=== PATIENT | female | born 1960 | race Caucasian/White ===

== ENCOUNTER 2017-01-01 08:47 | Observation (INO) | payer OTHER ==
[2017-01-01] MEDS ORDERED: SODIUM CHLORIDE 0.9% 1000 ML INFUS.BAG IV ONE (09:15)
[2017-01-01] MEDS ORDERED: LORAZEPAM CARPU-JECT 2 MG/ML DISP.SYRIN IVPUSH ONE (09:16)
--- NOTE | 2017-01-01 09:21 | PDOC ---
History of Present Illness - General History Source: Old Records Exam Limitations: No Limitations - History of Present Illness Initial Comments: 01/01/17 09:34 The patient is a 56-year-old woman, with a significant past medical history of restless leg syndrome and anxiety, who was sent to the emergency department by her PCP today for chronic abdominal pain. Pt attributes her pain to her hip surgery she had many years ago. The patient was seen in [facility] 2 weeks ago for similar pain. She describes the pain as a burning sensation that radiates down her legs bilaterally. She states that her pain has progressively worsened over the past month. Pt reports nausea, last episode of vomiting was yesterday. Last bowel movement was yesterday. She initially refused to speak to the doctor, requesting only Dr. Perez. The patient reports chills and dysuria. The patient denies any fever, cough, diarrhea, or constipation. PCP: Dr. De Leon <Sherry Mitchell - Last Filed: 01/01/17 09:34> <Ruchi Duque - Last Filed: 01/01/17 12:42> - General Chief Complaint: Pain Stated Complaint: PAIN Time Seen by Provider: 01/01/17 09:11 Past History <Sherry Mitchell - Last Filed: 01/01/17 09:34> - Past Medical History Psychiatric Problems: Yes (ANXIETY) - Surgical History Orthopedic Surgery: Yes (Left hip replacement surgery) - Psycho/Social/Smoking Cessation Hx Anxiety: Yes Suicidal Ideation: No Smoking History: Never smoked Have you smoked in the past 12 months: No Hx Alcohol Use: No Drug/Substance Use Hx: No Substance Use Type: None <Ruchi Duque - Last Filed: 01/01/17 12:42> - Past Medical History Allergies/Adverse Reactions: Allergies Allergy/AdvReac Type Severity Reaction Status Date / Time No Known Allergies Allergy Verified 01/01/17 08:52 Home Medications: Ambulatory Orders Hydrocodone/Acetaminophen [Vicodin 5-300 mg Tablet] 1 each PO PRN 01/01/17 Review of Systems - Review of Systems Able to Perform ROS?: Yes Comments:: 01/01/17 09:35 GENERAL/CONSTITUTIONAL: No fever. No weakness. +chills HEAD, EYES, EARS, NOSE AND THROAT: No change in vision. No ear pain or discharge. No sore throat. CARDIOVASCULAR: No chest pain or shortness of breath. RESPIRATORY: No cough, wheezing, or hemoptysis. SKIN: No rash GASTROINTESTINAL: No diarrhea or constipation.+nausea, vomiting, chronic abdominal pain GENITOURINARY: No frequency. +dysuria MUSCULOSKELETAL: No joint swelling or pain. No neck or back pain. +bilateral leg pain NEUROLOGIC: No headache, vertigo, loss of consciousness, or change in strength/ sensation. ENDOCRINE: No increased thirst. No abnormal weight change. HEMATOLOGIC/LYMPHATIC: No anemia, easy bleeding, or history of blood clots. ALLERGIC/IMMUNOLOGIC: No hives or skin allergy. <StephenSherry - Last Filed: 01/01/17 09:34> *Physical Exam - Vital Signs Last Vital Signs Temp Pulse Resp BP Pulse Ox 98.2 F 107 H 18 145/86 99 01/01/17 08:48 01/01/17 08:48 01/01/17 08:48 01/01/17 08:48 01/01/17 08:48 - Physical Exam Comments: 01/01/17 09:35 GENERAL: Awake, alert. +constantly moving and not able to sit still. HEAD: No signs of trauma ENT: Auricles normal inspection, hearing grossly normal, nares patent, oropharynx clear EYES: PERRLA, EOMI, sclera anicteric, conjunctiva clear without exudates. Moist mucosa. NECK: Normal ROM, supple, no lymphadenopathy, JVD, or masses LUNGS: Breath sounds equal, clear to auscultation bilaterally. No wheezes, and no crackles HEART: Regular rate and rhythm, normal S1 and S2, no murmurs, rubs or gallops ABDOMEN: Soft, normoactive bowel sounds. No guarding, no rebound. No masses. + tender in bilateral lower quadrant EXTREMITIES: Normal range of motion, no edema. No clubbing or cyanosis. No cords, erythema, or tenderness NEUROLOGICAL: +Oriented, speech is rapid pressured. SKIN: Warm, Dry, normal turgor, no rashes or lesions noted <StephenSherry - Last Filed: 01/01/17 09:34> - Vital Signs Last Vital Signs Temp Pulse Resp BP Pulse Ox 98.2 F 107 H 18 145/86 99 01/01/17 08:48 01/01/17 08:48 01/01/17 08:48 01/01/17 08:48 01/01/17 08:48 <Ruchi Duque - Last Filed: 01/01/17 12:42> ED Treatment Course - LABORATORY CBC & Chemistry Diagram: 01/01/17 09:44 01/01/17 09:44 <Ruchi Duque - Last Filed: 01/01/17 12:42> Medical Decision Making - Medical Decision Making 01/01/17 09:21 56 yo F with ho chronic abdominal pain for over 1 year here today with worsening pain. pt states she is having pulling sensation in whole abdomen radiating to her whole body. she has been seen for similar in the past. states this pain all started following her hip surgery many years ago. is concerned she is having adhesions in her abdomen. denies constipation, last bm was yesterday, reported some nausea and vomiting last episode yesterday. does report urinary burning but no urgeny, dysuria. pt initially refusing to speak to me, requesting to see the other doctor. demanding if ct is negative that she could be observed. pt denies current psychiatric medication, used to be on nortriptylline, and buspar but states they weren't working. she has rapid, pressured speech, denies drug use. on exam awake alert, hyperactive, lungs clear, heart RRR no mr/.g. abd soft bilat lower quad ttp, no rebound no guarding. speech hyperactive, pressured. differential: anxiety, chronic pain, uti diveritic, obstruction less likely. plan ct a/p, will d/w dr Lovett. anxiolytics . ivf. 01/01/17 09:59 d/w dr Lovett, states pt is new to him. recommending admission. also discussed need or psychiatry due to increased anxiety. 01/01/17 12:41 pt requesting case management as states she can not take care of herself at home. pending ct results. per dr. lovett will admit pt for further workup and management. <Ruchi Duque - Last Filed: 01/01/17 12:42> *DC/Admit/Observation/Transfer - Attestations Scribe Attestion: 01/01/17 09:37 Documentation prepared by Sherry Mitchell, acting as medical sonographer for Ruchi Duque MD. <Sherry Mitchell - Last Filed: 01/01/17 09:34> - Discharge Dispostion Admit: Yes <Ruchi Duque - Last Filed: 01/01/17 12:42> Diagnosis at time of Disposition: Chronic pain, Anxiety - Discharge Dispostion Condition at time of disposition: Stable - Referrals Referrals: Billy Colby MD [Primary Care Provider] -
[2017-01-01] MEDS ORDERED: LORazepam 2 MG/ML SDV VIAL ONE (09:28)
[2017-01-01 10:41] LABS: BASOPHIL 0.3 % (0-2.0); MCH 30.2 pg (25.7-33.7); MCHC 33.5 g/dl (32.0-36.0); MEAN CELL VOLUME 90.2 fl (80-96); MEAN PLT VOLUME 9.1 fl (7.5-11.1); NEUTROPHILS 50.3 % (42.8-82.8); PLATELET COUNT 158 K/MM3 (134-434); RDW 14.3 % (11.6-15.6); WHITE BLOOD COUNT 4.7 K/mm3 (4.0-10.0)
[2017-01-01 10:56] LABS: URINE APPEARANCE CLEAR; URINE BILIRUBIN NEGATIVE (NEGATIVE); URINE BLOOD NEGATIVE (NEGATIVE); URINE COLOR COLORLESS; URINE GLUCOSE (UA) NEGATIVE (NEGATIVE); URINE KETONE NEGATIVE (NEGATIVE); URINE LEUK ESTERASE NEGATIVE (NEGATIVE); URINE NITRITE NEGATIVE (NEGATIVE); URINE PROTEIN NEGATIVE (NEGATIVE); URINE UROBILINOGEN NEGATIVE E.U./dl (0.2-1.0)
[2017-01-01 11:09] LABS: ALBUMIN 3.8 g/dl (3.4-5.0); ALK PHOS 81 U/L (45-117); ANION GAP 10 (8-16); BILIRUBIN,TOTAL 0.7 mg/dL (0.2-1.0); CALCIUM 9.1 mg/dL (8.5-10.1); CO2 28 mmol/L (21-32); CREATININE 0.7 mg/dL (0.55-1.02); GLUCOSE,RANDOM 83 mg/dL (74-106); SGPT/ALT 27 U/L (12-78); TOT PROT 6.7 g/dl (6.4-8.2)
[2017-01-01 11:11] LABS: SGOT/AST 22 U/L (15-37)
--- NOTE | 2017-01-01 15:45 | PN ---
Mental Health Exam - Mental Status Exam Alert and Oriented to: Time, Place, Person Cognitive Function: Grossly Intact Patient Appearance: Unkempt, Disheveled Mood: Elated, Anxious, Expansive, Hopeful Affect: Inappropriate, Labile Patient Behavior: Inappropriate (opening gown constantly ), Restless, Distractible, Impulsive, Talkative Speech Pattern: Rambling, Excessive, Pressured, Perseverating, Tangential Voice Loudness: Moderately Loud Thought Process: Loose Associations, Tangential, Disorganized Thought Disorder: Delusional (re pain...somatic complaints...) Hallucinations: Denies Suicidal Ideation: Denies, No Plan Homicidal Ideation: Denies, No Plan
--- NOTE | 2017-01-01 15:56 | PN ---
Progress Note, Physician Chief Complaint: Patient is middle a female lives with her sister in law Josette at 0r cell [phone]. Called today by ER attending for bizzarre behaviour , apparently as driving today to [facility] in [facility] ED, then called ambulance to take her to hospital instead with somatic pain complaints. 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 Was Followed at [facility]re[facility]. Has a therapist named isaiah also there. Decreased appetite, poor sleep. Recommend seroquel 50 mg at night. May use serouel 25mg po prn for episode of extreme anxiety with vistaril 25mgs if needed. Spoke with edi manager from Er who is very helpful re discharge planning, setting up VNS services with aide in home to assist with adkls, ambulation, improved mental health. Her sister in law apparently is moving out.
[2017-01-01] MEDS ORDERED: ONDANSETRON 4 MG/2 ML VIAL IVPB PRN (17:39)
[2017-01-01 17:40] VITALS: BMI 26.3
[2017-01-01] MEDS ORDERED: QUEtiapine FUMARATE 25 MG TABLET (FP) PO PRN (17:41)
[2017-01-01] MEDS ORDERED: hydrOXYzine PAMOATE 25 MG CAPSULE (FP) PO PRN (17:42)
[2017-01-01] MEDS: ACETAMINOPHEN 325 MG TABLET (FP) PO PRN (19:18)
[2017-01-01] MEDS ORDERED: POLYETHYLENE GLYCOL 3350 119 GM BTL PO ONE (20:30)
[2017-01-01] MEDS ORDERED: QUEtiapine FUMARATE 25 MG TABLET (FP) ONE (21:02)
[2017-01-01] MEDS: QUEtiapine FUMARATE 50 MG TABLET PO SCH (21:26)
[2017-01-02] MEDS: QUEtiapine FUMARATE 50 MG TABLET PO SCH ×3 (00:02→23:20)
[2017-01-02] MEDS: ACETAMINOPHEN 325 MG TABLET (FP) PO PRN (08:20)
[2017-01-02] MEDS ORDERED: oxyCODONE HCL 5 MG TABLET PO PRN (09:28)
[2017-01-02] MEDS: LORazepam 1 MG TABLET PO PRN ×2 (09:50→23:22)
[2017-01-02] MEDS ORDERED: POLYETHYLENE GLYCOL 3350 119 GM BTL PO SCH (10:00)
--- NOTE | 2017-01-02 10:07 | PN ---
Progress Note (short form) - Note Progress Note: Nursing staff called with patient exhibiting agitated, uncontrolled behavior - refusing Seroquel this morning. Spoke to psychiatry, Mr. Cid -patient will need acute psych placement for Uncontrolled Bipolar Disorder with Acute Manic Phase. Will give Ativan for now.
--- NOTE | 2017-01-02 11:09 | PN ---
Progress Note (short form) - Note Progress Note: Pt seen and examined. In summary she is a 56 year old Female s/p Left THR by "Dr. Guo" at [facility] in 2012. Was good for 2 years. Has been hurting since 2014. She c/o pain in the left hip, thigh, lateral aspect left thigh, post knee on both sides. She has c/o pain in many, many different body areas. PE Pt is able to ambulate. I witnessed her putting her full weight on her left leg with no apparent pain. She has tight hamstrimgs B/L, and mild B/L knee flexion contractures. She is tender to palpation over the greater trochanteric bursas B/L, and over the ITBs Xrays Pt refusing Imp 56 yo F with B/L hip bursitis, would be helped by cortisone injections B/L tight hamstrings, knee flexion contractures, recommend P.T. for stretching B/L hip and ITB pain, rec P.T. Rec f/u with the surgeon who did the THR The pt became extremely combative, screaming, accusing, etc. She seems psychologically unstable. I discussed this with Dr Cordon. I would rather not be involved with the treatment of this pt. All of her orthopedic problems can be treated as an out pt. She should f/u with her orthopedist in [facility]
--- NOTE | 2017-01-02 11:17 | HP ---
Admitting History and Physical - Primary Care Physician PCP: Kevin Mckeon - Admission Chief Complaint: I've been hurting for years History of Present Illness: Ms Nickerson is a 56 year old female who comes in complaining of years of pain everywhere. She says that she had surgery in the past and she believes that her surgeon made a mistake. After that she has chronic pain that radiates "everywhere". She says she has abdominal pain. She says she has pain in both her legs. She says she has pain in all her joints. She continuously complains of pain. I am unable to obtain further history as her speech is very pressured and she goes back and forth with her pain complaints. She asks if she can be tested for RSD. She asks if she can be put on a morphine drip. When asking about other symptoms she gets visibly upset and says she is here for the pain that has been present for three years. History Source: Patient Limitations to Obtaining History: Clinical Condition - Past Medical History ...LMP Comment: over 5 yrs ago ...: No Psych: Yes: Bipolar - Past Surgical History Past Surgical History: Yes: Joint Replacement - Smoking History Smoking history: Never smoked Have you smoked in the past 12 months: No - Alcohol/Substance Use Hx Alcohol Use: No History of Substance Use: reports: None - Social History Usual Living Arrangement: Yes: Other (with stepsister) ADL: Family Assistance History of Recent Travel: No Home Medications - Allergies Allergies/Adverse Reactions: Allergies Allergy/AdvReac Type Severity Reaction Status Date / Time No Known Allergies Allergy Verified 01/01/17 08:52 - Home Medications Home Medications: Ambulatory Orders Hydrocodone/Acetaminophen [Vicodin 5-300 mg Tablet] 1 each PO PRN 01/01/17 Family Disease History - Family Disease History Other Family History: says all her family is from cancer Review of Systems Unable to obtain ROS, reason: hyperfocused on pain Physical Examination Vital Signs: Vital Signs Temperature 98.3 F 01/02/17 05:00 Pulse Rate 81 01/02/17 05:00 Respiratory Rate 20 01/02/17 05:00 Blood Pressure 133/83 01/02/17 05:00 O2 Sat by Pulse Oximetry (%) 100 01/01/17 14:11 Constitutional: Yes: Well Nourished, Anxious Eyes: Yes: Conjunctiva Clear Cardiovascular: Yes: Regular Rate and Rhythm. No: Gallop, Murmur, Rub Respiratory: Yes: Regular, CTA Bilaterally. No: Rales, Rhonchi, Wheezes Gastrointestinal: Yes: Normal Bowel Sounds, Soft. No: Distention, Tenderness Extremities: Yes: WNL Edema: No Psychiatric: Yes: Agitated. No: Suicidal Ideation Labs: Laboratory Results - last 24 hr 01/01/17 10:45 Ur Specific Elizabeth 1.015 Imaging - Results Cat Scan: Report Reviewed, Image Reviewed Assessment/Plan 1. Suspected decompensated bipolar disorder -patient says she has been weaned off of her psychiatric medications -was at her psychiatrist, but instead came in to the ED for evaluation of her pain -psychiatry saw her and recommended seroquel, which she is refusing -psychiatry to evaluate again, may need inpatient psychiatric treatment -does not have suicidal ideations -psychiatry to assist in medications 2. Chronic pain -per notes has been evaluated as an outpatient significantly -will not use narcotics in this patient -will continue tylenol
[2017-01-02] MEDS ORDERED: LORAZEPAM CARPU-JECT 2 MG/ML DISP.SYRIN IVPUSH ONE (11:30)
[2017-01-02] MEDS ORDERED: LORazepam 2 MG/ML SDV VIAL IVPUSH ONE (11:45)
--- NOTE | 2017-01-02 13:59 | CONSULT ---
Consult Consult Specialty:: PM&R - History of Present Illness Chief Complaint: pain all over, tightness/ stiffness all over History of Present Illness: This is a 56 year old woman with a medical history of bipolar disorder, RLS, L hip replacement, who presented to the ED complaining of diffuse abdominal/ pelvis/ BLE pain as well as stiffness BUE and tightness BLE. She notes burning B thighs. She reports having had multiple imaging studies LS spine/ B hips as well as EMG BLE. She perseverates on hip surgery being root of all problems, which makes it difficult to fully obtain information. Physiatry is being consulted for further recommendations. - History Source History Provided By: Patient, Medical Record - Past Medical History ...LMP Comment: over 5 yrs ago ...: No Psych: Yes: Bipolar - Past Surgical History Past Surgical History: Yes: Joint Replacement - Alcohol/Substance Use Hx Alcohol Use: No History of Substance Use: reports: None - Smoking History Smoking history: Never smoked Have you smoked in the past 12 months: No - Social History Usual Living Arrangement: Other (lives with sister in apartment with 2 flights to enter) ADL: Family Assistance History of Recent Travel: No Home Medications - Allergies Allergies/Adverse Reactions: Allergies Allergy/AdvReac Type Severity Reaction Status Date / Time No Known Allergies Allergy Verified 01/01/17 08:52 - Home Medications Home Medications: Ambulatory Orders Hydrocodone/Acetaminophen [Vicodin 5-300 mg Tablet] 1 each PO PRN 01/01/17 Family Disease History - Family Disease History Other Family History: says all her family is from cancer Review of Systems Findings/Remarks: notes chills, CP, SOB (from pulling in her neck), abdominal pain, diffuse weakness due to pulling/ stiffness/ tightness, pain in B groin/ abdomen/ pelvis into B thigh down into B 1st toes with burning Physical Exam Vital Signs: Vital Signs Temperature 98.1 F 01/02/17 13:30 Pulse Rate 95 H 01/02/17 13:30 Respiratory Rate 20 01/02/17 13:30 Blood Pressure 105/67 01/02/17 13:30 O2 Sat by Pulse Oximetry (%) 100 01/01/17 14:11 Musculoskeletal: Yes: Other (General: verbose F seen sitting lying and standing, anxious but calm N/M: full BLE ROM with mild pulling in R hip IR/ ER with hip fully flexed, no pain with LLE ROM, 5/5 BLE; Pinprick decreased L thigh, R medial knee and R lateral ankle Extremities: no BLE pitting edema, +B calf tenderness with negative Lisha's sign and no erythema BLE, B pes planus) Assessment/Plan Impression: 1) Deficits mobility/ ADLs 2) Diffuse abdomen/ pelvic and BLE pain 3) hx L THR 4) hx bipolar Recommendations: 1) PT for stretching strengthening ROM bed mobility transfers balance ambulation , stairs if able 2) Falls, safety precautions 3) Heat/ ice back/ BLE prn 4) DVT ppx: encourage ambulation 5) Skin protection: float heels, frequent turning 6) Monitor bowel movements 7) Pt adamant she has leg length discrepancy, would need BLE Xray to accurately determine (unlikely she would accept results of bedside measuring tape PSIS to medial malleolus) 8) Pt also adamant she needs orthotics- she does have pes planus but has tried orthotics in past without improvement. 9) F/u outpt EMG/ MRI 10) Discharge planning: depending on her progress in therapy, she may be able to return home with services (from functional stand-point) versus inpatient rehabilitation. Thank you for this referral.
[2017-01-02] MEDS ORDERED: LORAZEPAM CARPU-JECT 2 MG/ML DISP.SYRIN IVPUSH PRN (14:46)
[2017-01-02] MEDS ORDERED: QUEtiapine FUMARATE 25 MG TABLET (FP) ONE (19:39)
[2017-01-03] MEDS: LORazepam 1 MG TABLET PO PRN ×2 (06:16→10:56)
[2017-01-03 13:20] VITALS: BP 127/79; PULSE 104; TEMP 97.7
--- NOTE | 2017-01-03 14:12 | PN ---
Progress Note (short form) - Note Progress Note: Psych follow up: Patient lying comfortably in bed chatting aeay> in no apparant distress. She is casandra hallucinating or deel;usional at this time. She [id number] any bsuicidal ideas or Plans. PLAN: d/C when medically stable. follow up with her pvt5 PSych at the clinic in [facility].
--- NOTE | 2017-01-03 14:13 | DS ---
Physical Examination Vital Signs: Vital Signs Temperature 97.7 F 01/03/17 13:17 Pulse Rate 104 H 01/03/17 13:17 Respiratory Rate 20 01/03/17 13:17 Blood Pressure 127/79 01/03/17 13:17 O2 Sat by Pulse Oximetry (%) 100 01/01/17 14:11 Constitutional: Yes: Well Nourished, No Distress, Calm Cardiovascular: Yes: Regular Rate and Rhythm. No: Gallop, Murmur, Rub Respiratory: Yes: Regular, CTA Bilaterally. No: Rales, Rhonchi, Wheezes Gastrointestinal: Yes: Normal Bowel Sounds, Soft. 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 Suspected decompensated bipolar disorder 2. Chronic pain Ms Nickerson is a 56 year old female who has chronic pain and non-compliance with her psychiatric regimen who was admitted under observation. She was seen by orthopedic surgery and recommended outpatient follow up with her outpatient orthopedic surgery. She was seen by psychiatry and told to follow up with her psychiatrist. Patient was often hostile during hospital stay and became very aggressive. She is safe for discharge home. 40 minutes spent in preparation of this discharge Condition: Stable - Instructions Diet, Activity, Other Instructions: resume previous diet and activity Referrals: Billy Colby MD [Primary Care Provider] - Disposition: VNS/HOME HEALTH CARE - Home Medications Comprehensive Discharge Medication List: Ambulatory Orders Quetiapine Fumarate [Seroquel -] 50 mg PO HS #30 tablet 01/03/17
== END 2017-01-03 18:30 | disposition home health service (06) ==
LOC: JER 08:47 → JERBED 12:43 → J7W 15:02
PROVIDERS: ADMIT Specialist; ATTEND Specialist
PROC: 3E033GC Introduction of Other Therapeutic Substance into Peripheral Vein, Percutaneous Approach (ICD-10-PCS; principal; 2017-01-01)
PROC: 3E0337Z Introduction of Electrolytic and Water Balance Substance into Peripheral Vein, Percutaneous Approach (ICD-10-PCS; 2017-01-01)
DX: R10.9 Unspecified abdominal pain (principal); G25.81 Restless legs syndrome; F41.9 Anxiety disorder, unspecified; G89.29 Other chronic pain; F06.2 Psychotic disorder with delusions due to known physiological condition; M71.9 Bursopathy, unspecified; F31.89 Other bipolar disorder
CPT/HCPCS: 36415; 74177-TC; 80053; 81003; 83690; 85025; 97116-GP; 97161; 99284-25; G0378; Q9967

== ENCOUNTER 2017-02-21 14:13 | Emergency (ER) | payer OTHER ==
[2017-02-21 14:27] VITALS: BMI 25.9
--- NOTE | 2017-02-21 15:26 | PDOC ---
History of Present Illness <Khanh Lyon - Last Filed: 02/21/17 16:51> - General History Source: Patient - History of Present Illness Initial Comments: 02/21/17 16:06 56 year old female with a PMHx of HLD, anxiety who presents to the ED with burning and inflammation in her body since 2014. Patient also reports she cannot sit still, it feels like her shoulders are being pulled forward and her vagina is falling out. The patient went to urgent care today and saw Dr. Alexander Irvin for the first time. She came to the ED after being seen and requested an US on her thyroid. She reports symptoms began after a hip replacement 2 years ago. She states she has seen multiple doctors and no one believes her or wants to see her again. She does not have a PCP. <Lulu Paul - Last Filed: 02/21/17 16:57> - General Chief Complaint: Pain, Acute Stated Complaint: PAIN Time Seen by Provider: 02/21/17 14:34 Past History - Past Medical History Anemia: No Asthma: No Cancer: No Cardiac Disorders: No CVA: No COPD: No CHF: No Dementia: No Diabetes: No GI Disorders: No Disorders: No HTN: No Hypercholesterolemia: Yes Liver Disease: No Psychiatric Problems: Yes (ANXIETY) Seizures: No Thyroid Disease: No - Surgical History Abdominal Surgery: No Appendectomy: No Cardiac Surgery: No Cholecystectomy: No Lung Surgery: No Neurologic Surgery: No Orthopedic Surgery: Yes (Left hip replacement surgery) - Psycho/Social/Smoking Cessation Hx Anxiety: Yes Suicidal Ideation: No Smoking History: Former smoker Have you smoked in the past 12 months: No Information on smoking cessation initiated: No Hx Alcohol Use: No Drug/Substance Use Hx: No Substance Use Type: None Hx Substance Use Treatment: No <Khanh Lyon - Last Filed: 02/21/17 16:51> <Lulu Paul - Last Filed: 02/21/17 16:57> - Past Medical History Allergies/Adverse Reactions: Allergies Allergy/AdvReac Type Severity Reaction Status Date / Time No Known Allergies Allergy Verified 02/21/17 14:22 Home Medications: Ambulatory Orders Quetiapine Fumarate [Seroquel -] 50 mg PO HS #30 tablet 01/03/17 Review of Systems - Review of Systems Comments:: 02/21/17 16:06 GENERAL/CONSTITUTIONAL: No fever or chills. No weakness. HEAD, EYES, EARS, NOSE AND THROAT: No change in vision. No ear pain or discharge. No sore throat. CARDIOVASCULAR: No chest pain or shortness of breath. RESPIRATORY: No cough, wheezing, or hemoptysis. GASTROINTESTINAL: (+) burning and inflammation. No nausea, vomiting, diarrhea or constipation. GENITOURINARY: No dysuria, frequency, or change in urination. MUSCULOSKELETAL: No joint or muscle swelling or pain. No neck or back pain. SKIN: No rash NEUROLOGIC: (+) change in sensation - feels like her shoulders are being pulled and her vagina is falling out. No headache, vertigo, loss of consciousness, or change in strength. ENDOCRINE: No increased thirst. No abnormal weight change. HEMATOLOGIC/LYMPHATIC: No anemia, easy bleeding, or history of blood clots. ALLERGIC/IMMUNOLOGIC: No hives or skin allergy. <Lulu Paul - Last Filed: 02/21/17 16:57> *Physical Exam - Vital Signs Last Vital Signs Temp Pulse Resp BP Pulse Ox 98.1 F 84 19 122/73 99 02/21/17 14:22 02/21/17 14:22 02/21/17 14:22 02/21/17 14:22 02/21/17 14:22 <Khanh Lyon - Last Filed: 02/21/17 16:51> - Vital Signs Last Vital Signs Temp Pulse Resp BP Pulse Ox 98.1 F 84 19 122/73 99 02/21/17 14:22 02/21/17 14:22 02/21/17 14:22 02/21/17 14:22 02/21/17 14:22 <Lulu Paul - Last Filed: 02/21/17 16:57> ED Treatment Course - RADIOLOGY Radiograph Interpretation: 02/21/17 16:57 Sahar acted as a supervisor paper products during the exam. Told Dr. Lyon she was recording the exam with her phone. When Dr. Lyon told her it was not legal to record she said her phone was off. She insists that she is refusing to treat her. Dr. Lyon said that was not the case, but needs a sober responsible adult. Lives with sister, but will not be involved. Patient reported her gait was abnormal and stood up and held one hip higher. She reports that her shoulders were being pulled over and actively slumped over to act like they were being pulled. She states that her vagina is crooked and butt is not right, but the areas were not examined. Patient complained of abdominal stiffness and hard masses but on examination, the abdomen was soft. The masses she was referring to was fat. GENERAL: Awake, alert, and fully oriented, Histrionic. HEAD: No signs of trauma EYES: PERRLA, EOMI, sclera anicteric, conjunctiva clear ENT: Auricles normal inspection, hearing grossly normal, nares patent, oropharynx clear without exudates. Moist mucosa. Thyroid is without nodules or goiter. NECK: Normal ROM, supple, no lymphadenopathy, JVD, or masses LUNGS: Breath sounds equal, clear to auscultation bilaterally. No wheezes, and no crackles HEART: Regular rate and rhythm, normal S1 and S2, no murmurs, rubs or gallops ABDOMEN: Soft, nontender, normoactive bowel sounds. No guarding, no rebound. No masses EXTREMITIES: Normal range of motion, no edema. No clubbing or cyanosis. No cords, erythema, or tenderness NEUROLOGICAL: Cranial nerves II through XII grossly intact. Normal speech. SKIN: Warm, Dry, normal turgor, no rashes or lesions noted. <Lulu Paul A - Last Filed: 02/21/17 16:57> Medical Decision Making - Medical Decision Making 02/21/17 16:06 Dr. Lyon told the patient that, because she drove to the ER, in order to receive medications for her anxiety and pain someone needs to be here who agrees to drive her home. She called Dr. Irvin and told him Dr. Lyon would not see her unless she had someone with her. Dr. Irvin called and spoke with Dr. Lyon. He agrees with Dr. Lyon's assessment and thinks that the patient should get her prescriptions filled and follow-up with Dr. Irvin as planned. <Lulu Paul - Last Filed: 02/21/17 16:57> *DC/Admit/Observation/Transfer - Discharge Dispostion Admit: No - Attestations Physician Attestion: 02/21/17 15:26 I, Dr. Khanh Lyon, attest that this document has been prepared under my direction and personally reviewed by me in its entirety. I further attest, that it accurately reflects all work, treatment, procedures and medical decision -making performed by me. <Khanh Lyon - Last Filed: 02/21/17 16:51> - Attestations Scribe Attestion: 02/21/17 16:06 Documentation prepared by Lulu Paul, acting as nuclear medical tech for Khanh Lyon DO. <Lulu Paul - Last Filed: 02/21/17 16:57> Diagnosis at time of Disposition: Chronic pain - Referrals Referrals: Alexander Irvin MD [Primary Care Provider] - - Patient Instructions Additional Instructions: Yanique- Get the medicines filled that Dr. Carr wrote for you this morning. Try them and see him as planned next week. Best- Dr. Khanh Lyon
[2017-02-21 17:19] VITALS: BP 127/74; PULSE 80; TEMP 98.6
--- NOTE | 2017-02-21 18:44 | PDOC ---
*Physical Exam - Vital Signs Last Vital Signs Temp Pulse Resp BP Pulse Ox 98.6 F 80 20 127/74 100 02/21/17 17:18 02/21/17 17:18 02/21/17 17:18 02/21/17 17:18 02/21/17 17:18 Medical Decision Making - Medical Decision Making 02/21/17 16:40 I initially had signed up for this patient and began my history of present illness discussing with her with her complaints were which were generalized burning decreased range of motion, and vaginal puling. Patient states has been to numerous doctors over the past 2 years and has been seen by myself with no acute findings. Patient has been told to take Neurontin which she states took for a few weeks but stopped since she had no improvement last year. Patient also states was seen by Alexander Irvin in a clinic where he prescribed her Xanax and told to follow-up with psychiatry. Patient states has been to multiple doctors psychiatrist and specialist with no acute findings and states does not know what else to do. Patient anxious and not keeping still walking throughout the ER with full range of motion of wrist, neck, and extremities. Patient ambulated in the ER and when she returned to the stretcher I questioned what was her biggest concern and what could be solved in the ER. Patient states she is not sure requesting something for anxiety and the pain. I then asked the patient whom she had seen in the past and quickly stated "I want a second opinion from a doctor since I have seen you in the past." I told the patient to give me a second and I will find a physician. I discussed the case with Dr. Lyon, an attending ER who assumed care of the patient. *DC/Admit/Observation/Transfer Diagnosis at time of Disposition: Chronic pain - Discharge Dispostion Disposition: HOME - Referrals Referrals: Alexander Irvin MD [Primary Care Provider] - - Patient Instructions Additional Instructions: Yanique- Get the medicines filled that Dr. Carr wrote for you this morning. Try them and see him as planned next week. Best- Dr. Khanh Lyon - Post Discharge Activity
== END 2017-02-21 17:17 | disposition home or self-care (01) ==
LOC: JER 14:13
DX: G89.29 Other chronic pain (principal); F41.9 Anxiety disorder, unspecified
CPT/HCPCS: 76536-TC; 99283-25

== ENCOUNTER 2018-01-14 10:52 | Observation (INO) | payer OTHER ==
[2018-01-14 11:04] VITALS: BMI 26.4
--- NOTE | 2018-01-14 12:52 | PDOC ---
History of Present Illness - General Chief Complaint: Psychiatric Stated Complaint: ANXIETY Time Seen by Provider: 01/14/18 12:50 - History of Present Illness Initial Comments: 01/14/18 17:25 The patient is a 57 year old female with a significant PMH of chronic pain, anxiety (on ativan BID), and hyperlipidemia who presents to the emergency department with Vicodin withdrawal symptoms beginning approximately yesterday. The patient states she had been taking Vicodin 10-325mg TID until 11/12 when her PM&R physician Dr. Mayes told her that he could not prescribe the vicodin for her any longer. She has been trying to self wean since October but states she feels like she is withdrawing today. Her last pill was yesterday. She reports shaking, generalized body aches, and an anxious feeling at presentation. The patient states she is interested in detox from vicodin. Pt states she has followed up with many pain management doctors in [place] but they have not helped her. States her pain is not well controlled on Tylenol or Motrin. She states the vicodin does not help for pain, but just is addictive. On ROS, she states her urine is darker than usual. The patient denies chest pain, shortness of breath, headache and dizziness. Denies fever, chills, nausea, vomit, diarrhea and constipation. Denies dysuria, frequency, urgency Allergies: NKA Past surgical history: Hip replacement. Social history: Vicodin use. No reported alcohol or drug use. PCP: None reported. PM&R: Dr. Mayes Past History - Past Medical History Allergies/Adverse Reactions: Allergies Allergy/AdvReac Type Severity Reaction Status Date / Time No Known Allergies Allergy Verified 01/14/18 11:00 Home Medications: Ambulatory Orders Cholecalciferol (Vitamin D3) [Vitamin D3 -] 1,000 unit PO DAILY 07/09/17 Cyanocobalamin [Vitamin B12 -] 1,000 mcg PO DAILY 07/09/17 Duloxetine HCl [Cymbalta] 30 mg PO DAILY 07/09/17 LORazepam [Ativan] 0.5 mg PO TID 07/09/17 Anemia: No Asthma: No Cancer: No Cardiac Disorders: No CVA: No COPD: No CHF: No DVT: No Dementia: No Diabetes: No GI Disorders: No Disorders: No HTN: No Hypercholesterolemia: Yes Liver Disease: No Psychiatric Problems: Yes (ANXIETY) Seizures: No Thyroid Disease: No - Surgical History Abdominal Surgery: No Appendectomy: No Cardiac Surgery: No Cholecystectomy: No Lung Surgery: No Neurologic Surgery: No Orthopedic Surgery: Yes (Left hip replacement surgery) - Suicide/Smoking/Psychosocial Hx Smoking History: Never smoked Have you smoked in the past 12 months: No Information on smoking cessation initiated: No Hx Alcohol Use: No Drug/Substance Use Hx: No Substance Use Type: None Hx Substance Use Treatment: No Review of Systems - Review of Systems Comments:: 01/14/18 17:30 GENERAL/CONSTITUTIONAL: No fever or chills. No weakness. HEAD, EYES, EARS, NOSE AND THROAT: No change in vision. No ear pain or discharge. No sore throat. GASTROINTESTINAL: No nausea, vomiting, diarrhea or constipation. GENITOURINARY: No dysuria, frequency, or change in urination. CARDIOVASCULAR: No chest pain or shortness of breath. RESPIRATORY: No cough, wheezing, or hemoptysis. MUSCULOSKELETAL: (+) Generalized body aches. No joint pain. No neck or back pain. SKIN: No rash NEUROLOGIC: (+) Shaking. (+) Anxious. No headache, vertigo, loss of consciousness, or change in strength/sensation. ENDOCRINE: No increased thirst. No abnormal weight change. HEMATOLOGIC/LYMPHATIC: No anemia, easy bleeding, or history of blood clots. ALLERGIC/IMMUNOLOGIC: No hives or skin allergy. *Physical Exam - Vital Signs Last Vital Signs Temp Pulse Resp BP Pulse Ox 98.0 F 99 H 18 107/78 100 01/14/18 11:01 01/14/18 11:01 01/14/18 11:01 01/14/18 11:01 01/14/18 11:01 - Physical Exam Comments: 01/14/18 17:30 GENERAL: Awake, alert, and fully oriented HEAD: No signs of trauma EYES: PERRLA, EOMI, sclera anicteric, conjunctiva clear ENT: Auricles normal inspection, hearing grossly normal, nares patent, oropharynx clear without exudates. Moist mucosa NECK: Normal ROM, supple, no lymphadenopathy, JVD, or masses LUNGS: Breath sounds equal, clear to auscultation bilaterally. No wheezes, and no crackles HEART: Regular rate and rhythm, normal S1 and S2, no murmurs, rubs or gallops ABDOMEN: Soft, nontender, normoactive bowel sounds. No guarding, no rebound. No masses EXTREMITIES: Normal range of motion, no edema. No clubbing or cyanosis. No cords , erythema, or tenderness BACK: No midline spinal tenderness in cervical/thoracic/lumbar region NEUROLOGICAL: Normal speech, cranial nerves intact, negative pronator drift, 5/ 5 strength in all 4 extremities, normal sensation to light touch in all 4 extremities, normal cerebellar exam, normal gait, normal reflexes and tone SKIN: Warm, Dry, normal turgor, no rashes or lesions noted. Medical Decision Making - Medical Decision Making 01/14/18 13:20 57yo F with hx fibromyalgia presents to the ED with chronic body pain and withdrawal sxs from vicodin. Pt initially requesting detox from vicodin but then reports she has no pain medications for her chronic pain and that vicodin, motrin do not help. Pt amenable to tylenol for now Spoke with patient, willing to go to detox. Contacted detox intake and spoke with LISA Agarwal, who requested we contact the patients PM&R physician for confirmation to send to detox for Vicodin. Spoke with Dr. Mayes (PM&R) who gave more history on the patients vicodin use and his plan for management. He states he agrees to send the patient to detox. Called LISA Agarwal at [facility] and informed him Dr. Mayes agrees with detox plan, LISA Agarwal requests written confirmation to ensure the patient should be in detox. Spoke with Dr. Ornelas office to request written confirmation, awaiting paper through fax. Received fax from Dr. Ornelas office, sent to LISA Agarwal. Received a call from LISA Agarwal stating the patient will not be accepted to detox as there is no pain management plan in place after detox is complete. Given lack of plan for chronic pain management, and continued pain despite tylenol, will admit pt to obs for pain consult. Case discussed with Dr. Hernandez, accepted to obs admission Case discussed in detail with admitting physician including history, physical exam and ancillary studies. Admitting physician has assumed care for the patient, will follow all pending diagnostics and will complete the evaluation and treatment. 01/14/18 17:31 *DC/Admit/Observation/Transfer Diagnosis at time of Disposition: Total body pain - Discharge Dispostion Condition at time of disposition: Stable Decision to Admit order: Yes - Referrals - Patient Instructions - Post Discharge Activity - Attestations Physician Attestion: 01/14/18 16:24 I, Dr. Lonny Mcmahon MD, attest that this document has been prepared under my direction and personally reviewed by me in its entirety. I further attest, that it accurately reflects all work, treatment, procedures and medical decision -making performed by me.
[2018-01-14] MEDS ORDERED: ACETAMINOPHEN 500 MG TABLET (FP) PO ONE (14:55)
[2018-01-14] MEDS ORDERED: ACETAMINOPHEN 325 MG TABLET (FP) ONE ×2 (15:37→21:48)
--- NOTE | 2018-01-14 16:41 | HP ---
Admitting History and Physical - Primary Care Physician PCP: Cristiana Hernandez - Admission History of Present Illness: 57 year old female with a significant PMH of chronic pain, anxiety (on ativan BID), and hyperlipidemia who presents to the emergency department with Vicodin withdrawal symptoms beginning approximately yesterday. The patient states she had been taking Vicodin 10-325mg TID until 11/12 when her PM&R physician Dr. Mayes told her that he could not prescribe the vicodin for her any longer. She has been trying to self wean since October but states she feels like she is withdrawing today. Her last pill was yesterday. She reports shaking, generalized body aches, and an anxious feeling at presentation. The patient states she is interested in detox from vicodin. Pt states she has followed up with many pain management doctors in [place] but they have not helped her. States her pain is not well controlled on Tylenol or Motrin. She states the vicodin does not help for pain, but just is addictive. On ROS, she states her urine is darker than usual. - Past Medical History Cardiovascular: Yes: Hyperlipdemia Psych: Yes: Anxiety, Bipolar - Past Surgical History Past Surgical History: Yes: Joint Replacement - Smoking History Smoking history: Never smoked Have you smoked in the past 12 months: No - Alcohol/Substance Use Hx Alcohol Use: No History of Substance Use: reports: None - Social History ADL: Family Assistance History of Recent Travel: No Home Medications - Allergies Allergies/Adverse Reactions: Allergies Allergy/AdvReac Type Severity Reaction Status Date / Time No Known Allergies Allergy Verified 01/14/18 11:00 - Home Medications Home Medications: Ambulatory Orders Cholecalciferol (Vitamin D3) [Vitamin D3 -] 1,000 unit PO DAILY 07/09/17 Cyanocobalamin [Vitamin B12 -] 1,000 mcg PO DAILY 07/09/17 Duloxetine HCl [Cymbalta] 30 mg PO DAILY 07/09/17 LORazepam [Ativan] 0.5 mg PO TID 07/09/17 Physical Examination Vital Signs: Vital Signs Temperature 98.0 F 01/14/18 11:01 Pulse Rate 99 H 01/14/18 11:01 Respiratory Rate 18 01/14/18 11:01 Blood Pressure 107/78 01/14/18 11:01 O2 Sat by Pulse Oximetry (%) 100 01/14/18 11:01 Constitutional: Yes: Anxious HENT: Yes: Atraumatic Neck: Yes: Supple Cardiovascular: Yes: Regular Rate and Rhythm Respiratory: Yes: CTA Bilaterally Gastrointestinal: Yes: Normal Bowel Sounds Extremities: Yes: WNL Neurological: Yes: Alert, Oriented Problem List - Problems (1) Anxiety Assessment/Plan: will consult psych Code(s): F41.9 - ANXIETY DISORDER, UNSPECIFIED (2) Chronic pain Assessment/Plan: was on vicodin withdrawl now?? will get detox involve Code(s): G89.29 - OTHER CHRONIC PAIN Assessment/Plan Laboratory Tests 01/14/18 01/14/18 01/14/18 17:05 18:10 18:10 WBC 7.3 D RBC 4.72 Hgb 14.2 Hct 42.7 MCV 90.4 MCH 30.0 MCHC 33.2 RDW 13.6 Plt Count 199 D MPV 8.9 Absolute Neuts (auto) 4.0 Neutrophils % 54.5 Lymphocytes % 37.1 Monocytes % 7.6 Eosinophils % 0.5 Basophils % 0.3 Nucleated RBC % 0 Sodium 139 Potassium 4.1 Chloride 103 Carbon Dioxide 29 Anion Gap 7 L BUN 16 Creatinine 0.8 Creat Clearance w eGFR > 60 Random Glucose 91 Calcium 9.0 Total Bilirubin 0.7 AST 11 L ALT 18 Alkaline Phosphatase 79 Total Protein 6.9 Albumin 4.0 Urine Color Yellow Urine Appearance Slcloudy Urine pH 5.0 D Ur Specific [place] 1.027 Urine Protein Negative Urine Glucose (UA) Negative Urine Ketones Negative Urine Blood Negative Urine Nitrite Negative Urine Bilirubin Negative Urine Urobilinogen Negative Ur Leukocyte Esterase 1+ H Urine WBC (Auto) 3 Urine RBC (Auto) 1 Ur Epithelial Cells Rare Urine Mucus Moderate Active Medications Generic Name Dose Route Start Last Admin Trade Name Freq PRN Reason Stop Dose Admin Acetaminophen 650 mg 01/14/18 16:44 Tylenol - PO Q6H PRN FEVER Oxycodone HCl 5 mg 01/14/18 16:45 Roxicodone - PO Q6H PRN PAIN
[2018-01-14] MEDS ORDERED: oxyCODONE HCL 5 MG TABLET PO PRN (16:45)
[2018-01-14 18:01] LABS: URINE APPEARANCE SLCLOUDY; URINE BILIRUBIN NEGATIVE (<2.0 mg/dL); URINE COLOR YELLOW; URINE GLUCOSE (UA) NEGATIVE (NEGATIVE); URINE KETONE NEGATIVE (NEGATIVE); URINE NITRITE NEGATIVE (NEGATIVE); URINE PROTEIN NEGATIVE (NEGATIVE); URINE UROBILINOGEN NEGATIVE mg/dL (0.2-1.0)
[2018-01-14 18:10] LABS: URINE LEUK ESTERASE 1+ (NEGATIVE)
[2018-01-14 18:11] LABS: EPI CELLS RARE /HPF (FEW); URINE MUCUS MODERATE
[2018-01-14 18:22] LABS: BASO % 0.3 % (0-2.0); EOS % 0.5 % (0-4.5); HEMATOCRIT 42.7 % (32.4-45.2); HEMOGLOBIN 14.2 GM/dL (10.7-15.3); LYMPH % 37.1 % (8-40); MCHC 33.2 g/dl (32.0-36.0); MEAN CELL VOLUME 90.4 fl (80-96); MEAN PLT VOLUME 8.9 fl (7.5-11.1); MONO % 7.6 % (3.8-10.2); NEUT % 54.5 % (42.8-82.8); PLATELET COUNT 199 K/MM3 (134-434); RBC 4.72 M/mm3 (3.60-5.2); RDW 13.6 % (11.6-15.6); WHITE BLOOD COUNT 7.3 K/mm3 (4.0-10.0)
[2018-01-14 18:53] LABS: ALK PHOS 79 U/L (45-117); ANION GAP 7 (8-16); BILIRUBIN,TOTAL 0.7 mg/dL (0.2-1.0); BLOOD UREA NITROGEN 16 mg/dL (7-18); CHLORIDE 103 mmol/L (98-107); CO2 29 mmol/L (21-32); CREATININE 0.8 mg/dL (0.55-1.02); GLUCOSE,RANDOM 91 mg/dL (74-106); POTASSIUM 4.1 mmol/L (3.5-5.1); SGOT/AST 11 U/L (15-37); SGPT/ALT 18 U/L (12-78); SODIUM 139 mmol/L (136-145); TOT PROT 6.9 g/dl (6.4-8.2)
[2018-01-14] MEDS ORDERED: LORazepam 0.5 MG TABLET ONE (21:48)
[2018-01-14] MEDS ORDERED: AMITRIPTYLINE HCL 25 MG TABLET (FP) ONE (21:48)
[2018-01-14] MEDS: ACETAMINOPHEN 325 MG TABLET (FP) PO PRN (21:54)
[2018-01-14] MEDS: LORazepam 0.5 MG TABLET PO SCH (21:55)
[2018-01-14] MEDS: AMITRIPTYLINE HCL 25 MG TABLET (FP) PO SCH (21:55)
[2018-01-15] MEDS: LORazepam 0.5 MG TABLET PO SCH ×3 (06:34→22:03)
[2018-01-15] MEDS ORDERED: PREGABALIN 25 MG CAPSULE PO STA (07:32)
--- NOTE | 2018-01-15 07:45 | CON.NEURO ---
Consult Consult Specialty:: Neurology Referred by:: Dr. Hernandez Reason for Consultation:: Chronic Pain - History of Present Illness Chief Complaint: Pain all over History of Present Illness: 57 year old woman who reports that 2 years following an uneventful left hip replacement she developed burning and tightness in her right inguinal area. The pain eventually spread initially to her buttocks and then around the region to her leg and abdomen. She says that her skin feels tight and burning and that the muscles feel like they are pulling. Sometimes, she says that the skin feels hot to touch, but it doesn't look different. She denies that it appears different colors. She says that she was never given a diagnosis and that nobody knows what's wrong with her and that she has tried a variety of treatments including Cymbalta ineffectively, gabapentin, ineffectively, Lyrica ( didn't give it enough chance though she doesn't recall why) and most recently vicodin, but she is now being titrated off of it and in some degree of withdrawal. The Vicodine never provided her with relief anyway. 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) Cardio/Vascular: Yes: Hyperlipdemia Psych: Yes: Anxiety, Bipolar Musculoskeletal: Yes: Osteoarthritis, Other (left hip replacement) - Past Surgical History Past Surgical History: Yes: Joint Replacement - Alcohol/Substance Use Hx Alcohol Use: No History of Substance Use: reports: None - Smoking History Smoking history: Never smoked Have you smoked in the past 12 months: No - Social History Usual Living Arrangement: Other (lives with sister in apartment with 2 flights to enter) ADL: Family Assistance History of Recent Travel: No Home Medications - Allergies Allergies/Adverse Reactions: Allergies Allergy/AdvReac Type Severity Reaction Status Date / Time No Known Allergies Allergy Verified 01/14/18 11:00 - Home Medications Home Medications: Ambulatory Orders Cholecalciferol (Vitamin D3) [Vitamin D3 -] 1,000 unit PO DAILY 07/09/17 Cyanocobalamin [Vitamin B12 -] 1,000 mcg PO DAILY 07/09/17 Duloxetine HCl [Cymbalta] 30 mg PO DAILY 07/09/17 LORazepam [Ativan] 0.5 mg PO TID 07/09/17 Physical Exam-Neuro Vital Signs: Vital Signs Temperature 98.0 F 01/15/18 06:00 Pulse Rate 80 01/15/18 06:00 Respiratory Rate 20 01/15/18 06:00 Blood Pressure 132/83 01/15/18 06:00 O2 Sat by Pulse Oximetry (%) 99 01/15/18 02:00 Constitutional: Yes: Well Nourished, Anxious, Other (skin feels normal in the area involved, equal temperature and normal color, with no difference in hair noticed.) Edema: No Labs: CBC, BMP 01/14/18 18:10 01/14/18 18:10 - Neuro Exam Level Of Consciousness: Yes: Alert, Oriented to Person, Oriented to Place, Oriented to Time Eyes: Yes: GODWIN Speech: WNL Cranial Nerves II-XII Intact: Yes DTR's: 2+ Left Bicep, 2+ Right Bicep, 2+ Left Tricep, 2+ Right Tricep, 2+ Left Brachioradialis, 2+ Right Brachioradialis Babinski: Absent Response to light touch: Normal Coordination: Normal: Finger to Nose, Heel to Moss Motor Strength: 5/5: Left Arm, Right Arm, Left Leg, Right Leg Problem List - Problems (1) Complex regional pain syndrome i of right lower limb Code(s): G90.521 - COMPLEX REGIONAL PAIN SYNDROME I OF RIGHT LOWER LIMB Assessment/Plan While this is not clearly the case, I cannot think of another pain syndrome to account for her symptoms. I think that this is most likely, combined with some global hyperalgesia fueled by opioid overuse and withdrawal. I have started her on Lyrica, 25 mg (she was very anxious about starting higher because of side effects) and will titrate her up to 75 TID over 3 doses. Goal is to get to 300 bid or pain relief, whichever comes first. I'd recommend also consulting pain management to see whether she might be a candidate for a block. Thanks. We'll follow with you while she's here, but please have her follow up with me as an outpatient at our [address] [place] [address] office.
--- NOTE | 2018-01-15 11:16 | PN ---
S Progress Note (SOAP) Subjective: Addiction service consulted as pt is in withdrawal from stopping vicodin a few days ago. Pt states PCP discontinued vicodin after years of use. Pt states she is feeling anxious and nervous now. Pt is not clear if she wants methadone and whether she wants to continue this at discharge. She has been at [facility] Meth[facility]one [facility]- in the past- eventually discontinued methadone. Pt now is very talkative- pt not sure if she wants to back go to detox/rehab at [facility]. Pt is on oxycodone currently and ativan chronically prescribed by her psychiatrist. Objective: 01/15/18 18:01 Vital Signs - 24 hr 01/14/18 01/14/18 01/15/18 18:26 23:00 00:10 Temperature 981 F H Pulse Rate 68 Pulse Rate [ 78 Radial] Respiratory 20 20 20 Rate Blood Pressure 120/72 Blood Pressure 136/81 [Right Arm] O2 Sat by Pulse 97 99 Oximetry (%) 01/15/18 01/15/18 01/15/18 02:00 06:00 10:00 Temperature 98.0 F Pulse Rate 80 76 Pulse Rate [ Radial] Respiratory 20 20 18 Rate Blood Pressure 132/83 136/88 Blood Pressure [Right Arm] O2 Sat by Pulse 99 98 Oximetry (%) 01/15/18 14:00 Temperature 98.0 F Pulse Rate 88 Pulse Rate [ Radial] Respiratory 20 Rate Blood Pressure 110/76 Blood Pressure [Right Arm] O2 Sat by Pulse Oximetry (%) 01/14/18 18:10 01/14/18 18:10 pt is sitting in chair, alert and oriented Assessment: 01/15/18 18:02 Pt has a long h/o of opioid use. Self tapered vicodin after her PCP discontinued further refills of this med. Pt felt anxious and nervous and came to ER. Pt is in mild withdrawal. 01/15/18 18:06 Plan: Pt states she feels like she is still in opioid withdrawal. d/w pt re options for detox from opioids for her Opioid use disorder. Pt not sure that she wants to be on Suboxone or Methadone. She may choose Methadone detox protocol- 5 days. Pt has been at [facility] methadone maintenance program- she was not able to tolerate the program and is not a candidate at [facility] OT. If the pt chooses to be on methadone for long term care pharmacist maintenance can try other OTP's at [facility] or [place]. please call me if with questions of if I can be of further assistance: [phone].
[2018-01-15] MEDS ORDERED: SIMETHICONE 80 MG TAB.CHEW (FP) PO PRN (11:54)
[2018-01-15] MEDS ORDERED: PREGABALIN 50 MG CAPSULE PO ONE (15:30)
[2018-01-15] MEDS: ACETAMINOPHEN 325 MG TABLET (FP) PO PRN (17:49)
--- NOTE | 2018-01-15 18:08 | PN ---
S CIWA - CIWA Score Muscle Tremors: None Anxiety: 1-Mildly Anxious Agitation: 0-Normal Activity Paroxysmal Sweats: No Perspiration Orientation: 0-Oriented Tacttile Disturbances: 0-None Auditory Disturbances: 0-None S COWS - Scale Resting Pulse: 0= RI 80 or Below Sweatin= No chills or Flushing Restless Observation: 0= Sits Still Pupil Size: 0= Normal to Room Light Bone or Joint Aches: 0= None Runny Nose/ Eye Tearin= None GI Upset > 30mins: 0= None Tremor Observation of Outstretched Hands: 0= None Yawning Observation: 0= None Anxiety or Irritability: 0= None Goose Flesh Skin: 0=Smooth Skin (pt states she feels like she is in opioid withdrawal) COWS Score: 0
--- NOTE | 2018-01-15 20:14 | PN ---
Progress Note, Physician Chief Complaint: very anxious lot of complaints about pain all over body - Current Medication List Current Medications: Active Medications Acetaminophen (Tylenol -) 650 mg PO Q6H PRN PRN Reason: FEVER Last Admin: 01/15/18 17:49 Dose: 650 mg Amitriptyline HCl (Elavil -) 25 mg PO HS [facility] Last Admin: 01/14/18 21:55 Dose: 25 mg Lorazepam (Ativan -) 0.5 mg PO TID [facility] Last Admin: 01/15/18 13:49 Dose: 0.5 mg Oxycodone HCl (Roxicodone -) 5 mg PO Q6H PRN PRN Reason: PAIN Pregabalin (Lyrica -) 75 mg PO TID [facility] Simethicone (Mylicon -) 80 mg PO QID PRN PRN Reason: INDIGESTION - Objective Vital Signs: Vital Signs Temperature 98.1 F 01/15/18 18:30 Pulse Rate 84 01/15/18 18:30 Respiratory Rate 20 01/15/18 18:30 Blood Pressure 115/74 01/15/18 18:30 O2 Sat by Pulse Oximetry (%) 98 01/15/18 10:00 Constitutional: Yes: Anxious HENT: Yes: Atraumatic Neck: Yes: Supple Cardiovascular: Yes: Regular Rate and Rhythm Respiratory: Yes: CTA Bilaterally Gastrointestinal: Yes: Normal Bowel Sounds Extremities: Yes: WNL Neurological: Yes: Alert, Oriented Labs: CBC, BMP 01/14/18 18:10 01/14/18 18:10 Problem List - Problems (1) Anxiety Assessment/Plan: will consult psych on ativan Code(s): F41.9 - ANXIETY DISORDER, UNSPECIFIED (2) Chronic pain Assessment/Plan: was on vicodin withdrawl now?? will get detox involve Code(s): G89.29 - OTHER CHRONIC PAIN
[2018-01-15] MEDS: PREGABALIN 75 MG CAPSULE PO SCH (21:03)
[2018-01-15] MEDS: AMITRIPTYLINE HCL 25 MG TABLET (FP) PO SCH (22:40)
[2018-01-16] MEDS: PREGABALIN 75 MG CAPSULE PO SCH ×2 (07:16→14:32)
[2018-01-16] MEDS: LORazepam 0.5 MG TABLET PO SCH ×3 (07:17→23:03)
--- NOTE | 2018-01-16 14:03 | PN ---
Progress Note, Physician - Current Medication List Current Medications: Active Medications Acetaminophen (Tylenol -) 650 mg PO Q6H PRN PRN Reason: FEVER Last Admin: 01/15/18 17:49 Dose: 650 mg Amitriptyline HCl (Elavil -) 25 mg PO HS [facility] Last Admin: 01/15/18 22:40 Dose: 25 mg Lorazepam (Ativan -) 0.5 mg PO TID [facility] Last Admin: 01/16/18 07:17 Dose: Not Given Oxycodone HCl (Roxicodone -) 5 mg PO Q6H PRN PRN Reason: PAIN Pregabalin (Lyrica -) 75 mg PO TID [facility] Last Admin: 01/16/18 07:16 Dose: 75 mg Simethicone (Mylicon -) 80 mg PO QID PRN PRN Reason: INDIGESTION - Objective Vital Signs: Vital Signs Temperature 98.0 F 01/16/18 08:59 Pulse Rate 76 01/16/18 08:59 Respiratory Rate 20 01/16/18 08:59 Blood Pressure 130/73 01/16/18 08:59 O2 Sat by Pulse Oximetry (%) 97 01/16/18 10:00 Constitutional: Yes: Anxious HENT: Yes: Atraumatic Neck: Yes: Supple Cardiovascular: Yes: Regular Rate and Rhythm Respiratory: Yes: CTA Bilaterally Gastrointestinal: Yes: Normal Bowel Sounds Extremities: Yes: WNL Neurological: Yes: Alert, Oriented Labs: CBC, BMP 01/14/18 18:10 01/14/18 18:10 Problem List - Problems (1) Anxiety Assessment/Plan: on prn ativan Code(s): F41.9 - ANXIETY DISORDER, UNSPECIFIED (2) Chronic pain Assessment/Plan: on prn pain meds'lyrica continue other meds Code(s): G89.29 - OTHER CHRONIC PAIN
[2018-01-16] MEDS ORDERED: PREGABALIN 75 MG CAPSULE PO SCH (16:16)
--- NOTE | 2018-01-16 16:20 | PN ---
Progress Note, Physician Chief Complaint: pain History of Present Illness: 57 year old woman who reports that 2 years following an uneventful left hip replacement she developed burning and tightness in her right inguinal area. The pain eventually spread initially to her buttocks and then around the region to her leg and abdomen. She says that her skin feels tight and burning and that the muscles feel like they are pulling. Sometimes, she says that the skin feels hot to touch, but it doesn't look different. She denies that it appears different colors. She says that she was never given a diagnosis and that nobody knows what's wrong with her and that she has tried a variety of treatments including Cymbalta ineffectively, gabapentin, ineffectively, Lyrica ( didn't give it enough chance though she doesn't recall why) and most recently vicodin, but she is now being titrated off of it and in some degree of withdrawal. The Vicodine never provided her with relief anyway. - Current Medication List Current Medications: Active Medications Acetaminophen (Tylenol -) 650 mg PO Q6H PRN PRN Reason: FEVER Last Admin: 01/15/18 17:49 Dose: 650 mg Amitriptyline HCl (Elavil -) 25 mg PO HS [facility] Last Admin: 01/15/18 22:40 Dose: 25 mg Lorazepam (Ativan -) 0.5 mg PO TID [facility] Last Admin: 01/16/18 14:32 Dose: Not Given Oxycodone HCl (Roxicodone -) 5 mg PO Q6H PRN PRN Reason: PAIN Pregabalin (Lyrica -) 100 mg PO TID [facility] Simethicone (Mylicon -) 80 mg PO QID PRN PRN Reason: INDIGESTION - Objective Vital Signs: Vital Signs Temperature 98.5 F 01/16/18 15:02 Pulse Rate 86 01/16/18 15:02 Respiratory Rate 20 01/16/18 15:02 Blood Pressure 114/75 01/16/18 15:02 O2 Sat by Pulse Oximetry (%) 97 01/16/18 10:00 Neurological: Yes: Other (no deficits) Labs: CBC, BMP 01/14/18 18:10 01/14/18 18:10 Problem List - Problems (1) Complex regional pain syndrome i of right lower limb Code(s): G90.521 - COMPLEX REGIONAL PAIN SYNDROME I OF RIGHT LOWER LIMB Assessment/Plan While this is not clearly the case, I cannot think of another pain syndrome to account for her symptoms. I think that this is most likely, combined with some global hyperalgesia fueled by opioid overuse and withdrawal. Not much improvement she reports on 75 tid but she does seem a bit calmer. She is very anxious and needy and this fuels her presentation. I'll increase lyrica to 100 TID. Goal is to get to 300 bid or pain relief, whichever comes first. I'd recommend also consulting pain management to see whether she might be a candidate for a block. Thanks. We'll follow with you while she's here, but please have her follow up with me as an outpatient at our [address] [place] [address] Brooks is covering the weekend. I have no objection to her discharge at any point.
--- NOTE | 2018-01-16 18:10 | CON.PSY ---
Psychiatry Consult Chief Complaint: Asked to see this patient, a 57 year old female with a hx of opiod use disorder, fibromyalgia. chronic pain, Anxiety/Depression History of Present Problem: Patient states that she is in pain- " I feel my muscles tearing apart!" -pain all over:" She has refused oxycodne 5 mgs today refused Ativan today stating that she does not want to become addicted again to these meds However, during this encounter, she c/o only of ongoing pain and discomforts. Patient has been seeing a Psychiatrist but stopped going x 2 months now because she felt that he did not want to see her anymore because of varius reasons: She missed several appointments and was non adherent to meds he prescribed. Also had been receiving psychotherapy [facility] prescription monitoring data base revealed that she last reveived vicodin in October of 2017 She states that she was taking one or two pills per day and before coming to the Er she had taken it one day before and ran out of all meds Patient reports depressive symptoms, a hx of anxiety and feels alone in this word," I have no one!" Last took psych meds two months ago. Patient is vacillating between taking pain meds and not taking meds. Symptoms: reports: Depressed Mood, Restlessness, Other (anxiety) - Current Medications Current Medications: Active Medications Acetaminophen (Tylenol -) 650 mg PO Q6H PRN PRN Reason: FEVER Last Admin: 01/15/18 17:49 Dose: 650 mg Amitriptyline HCl (Elavil -) 25 mg PO HS [facility] Last Admin: 01/15/18 22:40 Dose: 25 mg Lorazepam (Ativan -) 0.5 mg PO TID [facility] Last Admin: 01/16/18 14:32 Dose: Not Given Oxycodone HCl (Roxicodone -) 5 mg PO Q6H PRN PRN Reason: PAIN Pregabalin (Lyrica -) 100 mg PO TID [facility] Simethicone (Mylicon -) 80 mg PO QID PRN PRN Reason: INDIGESTION - Allergies Allergies: Allergies Allergy/AdvReac Type Severity Reaction Status Date / Time No Known Allergies Allergy Verified 01/14/18 11:00 - Current Mental Status Evaluation Appearance: Other (appropriate for the hospital setting) - Affect Affect: Constrictive - Mood Mood: Depressed, Anxious - Speech/Language Expressive: Talkative Receptive: Age Appropriate Comprehension of Spoken Words - Psychomotor Activity Psychomotor Activity: Normal - Thought Process Thought Process: Intact, Circumstantial - Thought Content Hallucinations: Absent Delusions: Absent - Self Perception Self Perception: No Impairment - Cognition Attention: Alert Orientation: Time, Person, Place Memory, Immediate Recall: Intact - Concentration Simple Calculations Intact: Yes - Abstraction Proverb Interpretation: Intact - Insight Insight: Impaired - Impulse Control Impulse Control: Minimally Impaired - Suicidal Ideation Suicidal Ideation: No - Homicidal Ideation Homicidal Ideation: No Assessment/Plan Patient is not in acute withdrawal only a little 'jittery' She is indecisive about going back on pain meds Admitted that she has not been taking her psychiatric meds Rec Continue low dose elavil, lyrica and cymbalta for both pain/fibromyalgia/ Depression. Continue Ativan prn as she is extremely anxious. She can be referred to Dr. Arnold psychaitric group upon discharge Patient is too indecisive about detox/rehab or starting alternative meds for opiod addiction
[2018-01-16] MEDS: PREGABALIN 100 MG CAPSULE PO SCH (21:12)
[2018-01-16] MEDS: AMITRIPTYLINE HCL 25 MG TABLET (FP) PO SCH (22:04)
[2018-01-16] MEDS: ROSUVASTATIN CA 5 MG TABLET (FP) PO SCH (22:04)
[2018-01-17] MEDS: PREGABALIN 100 MG CAPSULE PO SCH ×3 (06:11→21:19)
[2018-01-17] MEDS: LORazepam 0.5 MG TABLET PO SCH ×3 (06:44→22:11)
[2018-01-17] MEDS: CYANOCOBALAMIN 1,000 MCG TABLET (FP) PO SCH (10:28)
[2018-01-17] MEDS: CHOLECALCIFEROL (VITAMIN D3) 1,000 UNIT TABLET (FP) PO SCH (10:28)
[2018-01-17] MEDS: ACETAMINOPHEN 325 MG TABLET (FP) PO PRN (17:12)
--- NOTE | 2018-01-17 17:44 | PN ---
Progress Note, Physician - Current Medication List Current Medications: Active Medications Acetaminophen (Tylenol -) 650 mg PO Q6H PRN PRN Reason: FEVER Last Admin: 01/17/18 17:12 Dose: 650 mg Amitriptyline HCl (Elavil -) 25 mg PO [facility] Last Admin: 01/16/18 22:04 Dose: 25 mg Cholecalciferol (Vitamin D3 -) 1,000 unit PO DAILY [facility] Last Admin: 01/17/18 10:28 Dose: 1,000 unit Cyanocobalamin (Vitamin B12 -) 1,000 mcg PO DAILY [facility] Last Admin: 01/17/18 10:28 Dose: 1,000 mcg Lorazepam (Ativan -) 0.5 mg PO TID [facility] Last Admin: 01/17/18 14:02 Dose: 0.5 mg Pregabalin (Lyrica -) 100 mg PO TID [facility] Last Admin: 01/17/18 14:02 Dose: 100 mg Rosuvastatin Calcium (Crestor -) 5 mg PO [facility] Last Admin: 01/16/18 22:04 Dose: 5 mg Simethicone (Mylicon -) 80 mg PO QID PRN PRN Reason: INDIGESTION - Objective Vital Signs: Vital Signs Temperature 98.7 F 01/17/18 15:45 Pulse Rate 87 01/17/18 15:45 Respiratory Rate 18 01/17/18 15:45 Blood Pressure 116/75 01/17/18 15:45 O2 Sat by Pulse Oximetry (%) 97 01/16/18 10:00 Constitutional: Yes: Anxious HENT: Yes: Atraumatic Neck: Yes: Supple Cardiovascular: Yes: Regular Rate and Rhythm Respiratory: Yes: CTA Bilaterally Gastrointestinal: Yes: Normal Bowel Sounds Extremities: Yes: WNL Neurological: Yes: Alert, Oriented Labs: CBC, BMP 01/14/18 18:10 01/14/18 18:10 Problem List - Problems (1) Anxiety Assessment/Plan: on prn ativan Code(s): F41.9 - ANXIETY DISORDER, UNSPECIFIED (2) Chronic pain Assessment/Plan: on prn pain meds'lyrica continue other meds Code(s): G89.29 - OTHER CHRONIC PAIN
[2018-01-17] MEDS ORDERED: PT OWN MED DRAWER 7, Y5N ONE (21:05)
[2018-01-17] MEDS: ROSUVASTATIN CA 5 MG TABLET (FP) PO SCH (21:19)
[2018-01-17] MEDS: AMITRIPTYLINE HCL 25 MG TABLET (FP) PO SCH (22:11)
[2018-01-18] MEDS: ACETAMINOPHEN 325 MG TABLET (FP) PO PRN ×2 (02:55→15:34)
[2018-01-18] MEDS: PREGABALIN 100 MG CAPSULE PO SCH ×4 (05:43→21:49)
[2018-01-18] MEDS: LORazepam 0.5 MG TABLET PO SCH ×4 (05:43→21:49)
[2018-01-18] MEDS: CYANOCOBALAMIN 1,000 MCG TABLET (FP) PO SCH (10:28)
[2018-01-18] MEDS: CHOLECALCIFEROL (VITAMIN D3) 1,000 UNIT TABLET (FP) PO SCH (10:28)
--- NOTE | 2018-01-18 18:51 | PN ---
Progress Note, Physician - Current Medication List Current Medications: Active Medications Acetaminophen (Tylenol -) 650 mg PO Q6H PRN PRN Reason: FEVER Last Admin: 01/18/18 15:34 Dose: 650 mg Amitriptyline HCl (Elavil -) 25 mg PO [facility] Last Admin: 01/17/18 22:11 Dose: 25 mg Cholecalciferol (Vitamin D3 -) 1,000 unit PO DAILY [facility] Last Admin: 01/18/18 10:28 Dose: 1,000 unit Cyanocobalamin (Vitamin B12 -) 1,000 mcg PO DAILY [facility] Last Admin: 01/18/18 10:28 Dose: 1,000 mcg Lorazepam (Ativan -) 0.5 mg PO TID [facility] Last Admin: 01/18/18 13:50 Dose: Not Given Oxycodone HCl (Roxicodone -) 10 mg PO Q6H PRN PRN Reason: PAIN LEVEL 4 - 6 Pregabalin (Lyrica -) 100 mg PO TID [facility] Last Admin: 01/18/18 13:49 Dose: 100 mg Rosuvastatin Calcium (Crestor -) 5 mg PO [facility] Last Admin: 01/17/18 21:19 Dose: 5 mg Simethicone (Mylicon -) 80 mg PO QID PRN PRN Reason: INDIGESTION Last Admin: 01/18/18 15:34 Dose: 80 mg - Objective Vital Signs: Vital Signs Temperature 98.7 F 01/18/18 15:29 Pulse Rate 94 H 01/18/18 15:29 Respiratory Rate 18 01/18/18 18:00 Blood Pressure 114/72 01/18/18 15:29 O2 Sat by Pulse Oximetry (%) 96 01/18/18 18:00 Constitutional: Yes: Anxious HENT: Yes: Atraumatic Neck: Yes: Supple Cardiovascular: Yes: Regular Rate and Rhythm Respiratory: Yes: CTA Bilaterally Gastrointestinal: Yes: Normal Bowel Sounds Extremities: Yes: WNL Neurological: Yes: Alert, Oriented Labs: CBC, BMP 01/14/18 18:10 01/14/18 18:10 Problem List - Problems (1) Anxiety Assessment/Plan: on prn ativan continue other meds Code(s): F41.9 - ANXIETY DISORDER, UNSPECIFIED (2) Chronic pain Assessment/Plan: on prn pain meds'lyrica continue other meds Code(s): G89.29 - OTHER CHRONIC PAIN
[2018-01-18] MEDS ORDERED: oxyCODONE HCL 5 MG TABLET ONE (18:59)
[2018-01-18] MEDS: oxyCODONE HCL 5 MG TABLET PO PRN (19:01)
[2018-01-18] MEDS ORDERED: PT OWN MED DRAWER 7, Y5N ONE ×2 (20:52→20:56)
[2018-01-18] MEDS: ROSUVASTATIN CA 5 MG TABLET (FP) PO SCH (21:12)
[2018-01-18] MEDS: AMITRIPTYLINE HCL 25 MG TABLET (FP) PO SCH (21:12)
[2018-01-19] MEDS: LORazepam 0.5 MG TABLET PO SCH ×2 (06:22→14:01)
[2018-01-19] MEDS: PREGABALIN 100 MG CAPSULE PO SCH ×2 (06:22→14:02)
[2018-01-19] MEDS: CYANOCOBALAMIN 1,000 MCG TABLET (FP) PO SCH (10:02)
[2018-01-19] MEDS: CHOLECALCIFEROL (VITAMIN D3) 1,000 UNIT TABLET (FP) PO SCH (10:02)
--- NOTE | 2018-01-19 11:19 | CONSULT ---
Consult Consult Specialty:: Pain Management Reason for Consultation:: Low back Pain - History of Present Illness History of Present Illness: 57 yr old with chronic pain 02/03 , was on Narcotic , and seen by several pain physician She is getting PT. She has difficulty in walking . 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) Cardio/Vascular: Yes: Hyperlipdemia Psych: Yes: Anxiety, Bipolar Musculoskeletal: Yes: Osteoarthritis, Other (left hip replacement) - Past Surgical History Past Surgical History: Yes: Joint Replacement - Alcohol/Substance Use Hx Alcohol Use: No History of Substance Use: reports: None - Smoking History Smoking history: Never smoked Have you smoked in the past 12 months: No - Social History Usual Living Arrangement: Other (lives with sister in apartment with 2 flights to enter) ADL: Family Assistance History of Recent Travel: No Home Medications - Allergies Allergies/Adverse Reactions: Allergies Allergy/AdvReac Type Severity Reaction Status Date / Time No Known Allergies Allergy Verified 01/14/18 11:00 - Home Medications Home Medications: Ambulatory Orders Cholecalciferol (Vitamin D3) [Vitamin D3 -] 1,000 unit PO DAILY 07/09/17 Cyanocobalamin [Vitamin B12 -] 1,000 mcg PO DAILY 07/09/17 Duloxetine HCl [Cymbalta] 30 mg PO DAILY 07/09/17 LORazepam [Ativan] 0.5 mg PO TID 07/09/17 Amitriptyline HCl [Elavil -] 25 mg PO HS #30 tablet 01/18/18 Pregabalin [Lyrica -] 100 mg PO TID #90 capsule MDD 3 01/18/18 Rosuvastatin [Crestor -] 5 mg PO HS tablet 01/18/18 Review of Systems - Review of Systems Constitutional: reports: No Symptoms Eyes: reports: No Symptoms HENT: reports: No Symptoms Neck: reports: No Symptoms Respiratory: reports: No Symptoms Gastrointestinal: reports: No Symptoms Genitourinary: reports: No Symptoms Musculoskeletal: reports: Back Pain Integumentary: reports: No Symptoms Neurological: reports: No Symptoms Pain Intensity: 7 Physical Exam Vital Signs: Vital Signs Temperature 97.6 F 01/19/18 05:43 Pulse Rate 57 L 01/19/18 05:43 Respiratory Rate 20 01/19/18 05:43 Blood Pressure 102/61 01/19/18 05:43 O2 Sat by Pulse Oximetry (%) 96 01/19/18 02:00 Constitutional: Yes: Well Nourished Eyes: Yes: WNL HENT: Yes: WNL Neck: Yes: WNL Gastrointestinal: Yes: WNL Musculoskeletal: Yes: Back Pain, Joint Stiffness Extremities: Yes: WNL Neurological: Yes: WNL ...Motor Strength: WNL Psychiatric: Yes: WNL Labs: CBC, BMP 01/14/18 18:10 01/14/18 18:10 Assessment/Plan Discussed in details and answered all question. 1. Physical therapy 2. MRI of L-S spine 3. F/u of with Spine surgeon . 4. Continue Current care. 5. Psychiatric eval and treat. Thanks Dr. Denney
[2018-01-19] MEDS: oxyCODONE HCL 5 MG TABLET PO PRN (11:24)
[2018-01-19] MEDS ORDERED: IBUPROFEN 400 MG TABLET (FP) PO PRN (11:25)
[2018-01-19 15:41] VITALS: BP 111/85; PULSE 92; TEMP 98.1
[2018-01-19] MEDS: ACETAMINOPHEN 325 MG TABLET (FP) PO PRN (17:11)
--- NOTE | 2018-01-20 16:42 | DS ---
Physical Examination Vital Signs: Vital Signs Temperature 98.1 F 01/19/18 15:39 Pulse Rate 92 H 01/19/18 15:39 Respiratory Rate 18 01/19/18 15:39 Blood Pressure 111/85 01/19/18 15:39 O2 Sat by Pulse Oximetry (%) 96 01/19/18 10:00 Labs: CBC, BMP 01/14/18 18:10 01/14/18 18:10 Discharge Summary Reason For Visit: TOTAL BODY PAIN Condition: Stable - Instructions Diet, Activity, Other Instructions: follow up regarding outpt MRI. Referrals: Vishal Santillan MD [Staff Physician] - Brionna Brooks MD [Staff Physician] - Alpesh Denney MD [Staff Physician] - Disposition: HOME - Home Medications Comprehensive Discharge Medication List: Ambulatory Orders Cholecalciferol (Vitamin D3) [Vitamin D3 -] 1,000 unit PO DAILY 07/09/17 Cyanocobalamin [Vitamin B12 -] 1,000 mcg PO DAILY 07/09/17 Duloxetine HCl [Cymbalta] 30 mg PO DAILY 07/09/17 LORazepam [Ativan] 0.5 mg PO TID 07/09/17 Amitriptyline HCl [Elavil -] 25 mg PO HS #30 tablet 01/18/18 Pregabalin [Lyrica -] 100 mg PO TID #90 capsule MDD 3 01/18/18 Rosuvastatin [Crestor -] 5 mg PO HS tablet 01/18/18 me home
== END 2018-01-19 18:58 | disposition home or self-care (01) ==
LOC: JER 10:52 → JERBED 16:24 → J5S 22:40
PROVIDERS: ADMIT Internal Medicine; ATTEND Internal Medicine
DX: F41.9 Anxiety disorder, unspecified (principal); M79.1 Myalgia; G89.29 Other chronic pain; E78.5 Hyperlipidemia, unspecified; G90.521 Complex regional pain syndrome I of right lower limb; F11.10 Opioid abuse, uncomplicated
CPT/HCPCS: 36415; 71045-TC-FY; 80053; 81003; 81015; 85025; 87077; 87086; 97116-GP; 97161-GP; 99283-25; G0378

== ENCOUNTER 2018-07-30 11:47 | Emergency (ER) | payer OTHER ==
[2018-07-30 12:17] VITALS: BP 104/83; PULSE 105; TEMP 98.5; BMI 26.4
[2018-07-30] MEDS ORDERED: METHOCARBAMOL 500 MG TABLET PO ONE (13:53)
[2018-07-30] MEDS ORDERED: METHOCARBAMOL 500 MG TABLET ONE (13:57)
--- NOTE | 2018-07-30 14:01 | PDOC ---
History of Present Illness - General Chief Complaint: Back Pain Stated Complaint: PCP SENT Time Seen by Provider: 07/30/18 13:30 History Source: Patient Exam Limitations: No Limitations - History of Present Illness Initial Comments: 07/30/18 13:57 HISTORY OF PRESENT ILLNESS: This is a 58-year-old woman with past medical history of hip replacement presents for evaluation of complete body pain for 6- 7 years. Patient most acutely complaints of left neck pain and left popliteal pain. 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 Patient reports receiving prescriptions for multiple benzodiazepines as well as Robaxin in the past and nothing has helped with her pain. Patient is minimal appointment with Dr. Mckeon for neurologic evaluation. Patient had MRI performed in January of this year which showed multiple disc herniations in the cervical and lumbar spine. No recent travel or sick contacts. PAST MEDICAL HISTORY: Denies past medical history SURGICAL HISTORY: left hip replacement ALLERGIES: No known drug allergies REVIEW OF SYSTEMS General/Constitutional: Denies fever or chills. Denies weakness, weight change. HEENT: Denies change in vision. Denies ear pain or discharge. Denies sore throat. Cardiovascular: Denies chest pain or shortness of breath. Respiratory: Denies cough, wheezing, or hemoptysis. Gastrointestinal: Denies nausea, vomiting, diarrhea or constipation. Denies rectal bleeding. Genitourinary: Denies dysuria, frequency, or change in urination. Musculoskeletal: Multiple somatic complaints. Denies neck or back pain. Skin and breasts: Denies rash or easy bruising. Neurologic: Denies headache, vertigo, loss of consciousness, or loss of sensation. Psychiatric: Denies depression or anxiety. Endocrine: Denies increased thirst. Denies abnormal weight change. Hematologic/Lymphatic: Denies anemia, easy bleeding, or history of blood clots. Allergic/Immunologic: Denies hives or skin allergy. Denies latex allergy. PHYSICAL EXAM General Appearance: Well-appearing, appropriately dressed. No apparent distress , no intoxication. HEENT: EOMI, PERRLA, normal ENT inspection, normal voice, TMs normal, pharynx normal. No conjunctival pallor. No photophobia, scleral icterus. Neck: Supple. Trachea midline. No tenderness, rigidity, carotid bruit, stridor , lymphadenopathy, or thyromegaly. Respiratory/Chest: Lungs CTAB. No shortness of breath, chest tenderness, respiratory distress, accessory muscle use. No crackles, rales, rhonchi, stridor , wheezing, dullness Cardiovascular: RRR. S1, S2. No JVD, murmur, bradycardia, tachycardia. Vascular Pulses: Dorsalis-Pedis (R): 2+, Dorsalis-Pedis (L): 2+ Gastrointestinal/Abdominal: Normal bowel sounds. Abdomen soft, non-distended. No tenderness or rebound tenderness. No organomegaly, pulsatile mass, guarding, hernia, hepatomegaly, splenomegaly. Lymphatic: No adenopathy, tenderness. Musculoskeletal/Extremities: Normal inspection. FROM of all extremities, normal capillary refill. Pelvis Stable. No CVA tenderness. No tenderness to extremities, pedal edema, swelling, erythema or deformity. Intoeing present to b/l feet which self corrects while walking. Integumentary: Appropriate color, dry, warm. No cyanosis, erythema, jaundice or rash Neurologic: x ray physician II-XII intact. Fully oriented, alert. Appropriate mood/affect. Motor strength 5/5. No appreciable EOM palsy, facial droop or sensory deficit. Normoreflexive. Past History - Past Medical History Allergies/Adverse Reactions: Allergies Allergy/AdvReac Type Severity Reaction Status Date / Time No Known Allergies Allergy Verified 07/30/18 12:13 Home Medications: Ambulatory Orders Cholecalciferol (Vitamin D3) [Vitamin D3 -] 1,000 unit PO DAILY 07/09/17 Cyanocobalamin [Vitamin B12 -] 1,000 mcg PO DAILY 07/09/17 Duloxetine HCl [Cymbalta] 30 mg PO DAILY 07/09/17 LORazepam [Ativan] 0.5 mg PO TID 07/09/17 Amitriptyline HCl [Elavil -] 25 mg PO HS #30 tablet 01/18/18 Pregabalin [Lyrica -] 100 mg PO TID #90 capsule MDD 3 01/18/18 Rosuvastatin [Crestor -] 5 mg PO HS tablet 01/18/18 Gabapentin 300 mg PO HS #30 capsule 07/30/18 Anemia: No Asthma: No Cancer: No Cardiac Disorders: No CVA: No COPD: No CHF: No DVT: No Dementia: No Diabetes: No GI Disorders: No Disorders: No HTN: No Hypercholesterolemia: Yes Liver Disease: No Psychiatric Problems: Yes (ANXIETY) Seizures: No Thyroid Disease: No - Surgical History Abdominal Surgery: No Appendectomy: No Cardiac Surgery: No Cholecystectomy: No Lung Surgery: No Neurologic Surgery: No Orthopedic Surgery: Yes (Left hip replacement surgery) - Suicide/Smoking/Psychosocial Hx Smoking History: Never smoked Have you smoked in the past 12 months: No Hx Alcohol Use: No Drug/Substance Use Hx: No Substance Use Type: None Hx Substance Use Treatment: No *Physical Exam - Vital Signs Last Vital Signs Temp Pulse Resp BP Pulse Ox 98.5 F 105 H 16 104/83 97 07/30/18 12:14 07/30/18 12:14 07/30/18 12:14 07/30/18 12:14 07/30/18 12:14 Moderate Sedation - Procedure Monitoring Vital Signs: Procedure Monitoring Vital Signs Temperature 98.5 F 07/30/18 12:14 Pulse Rate 105 H 07/30/18 12:14 Respiratory Rate 16 07/30/18 12:14 Blood Pressure 104/83 07/30/18 12:14 O2 Sat by Pulse Oximetry (%) 97 07/30/18 12:14 ED Treatment Course - LABORATORY CBC & Chemistry Diagram: 07/30/18 13:29 07/30/18 13:29 Medical Decision Making - Medical Decision Making 07/30/18 14:11 A/P: 58-year-old woman with multiple somatic complaints including muscle tightness throughout her body. EOMI, PERRLA Cranial nerves II through XII grossly intact No palpable muscle spasms present in sternocleidomastoid, rectus abdominis, gastrocnemius bilaterally Increased tenderness with palpation of the left popliteal No swelling present in bilateral calves Robaxin 1500 mg orally now Ultrasound to rule out DVT in the left lower extremity Labs as directed by Dr. Mckeon Reassess 07/30/18 14:58 Ultrasound reveals no evidence of deep vein thrombosis bilaterally. Laboratory testing is unremarkable with a CRP of less than 0.3 and an ESR of 5. Case discussed with Dr. Kline who recommends patient take gabapentin 300 mg at bedtime and follow-up in his office. 07/30/18 15:[address] Verduzco prior to leaving the emergency department. Dr. Verduzco called and stated that he is able to see the patient in his office if she can come now. This information has been relayed to the patient's who states she needs a medication To get to the doctor's appointment across the street. Medicaid cab arrangements are in progress at this time. *DC/Admit/Observation/Transfer Diagnosis at time of Disposition: Total body pain - Discharge Dispostion Disposition: HOME Condition at time of disposition: Stable Decision to Admit order: No - Prescriptions Prescriptions: Gabapentin 300 mg PO HS #30 capsule - Referrals Referrals: Ghassan Kline MD [Primary Care Provider] - - Patient Instructions Additional Instructions: Please follow-up with Dr. Kline in his office. Dr. Kline is aware of your visit today and has been contacted regarding all laboratory testing and results. Call his office to schedule an appointment. Take gabapentin 300 mg every night before bed. Thank you very much for choosing us to provide emergent health care needs. - Post Discharge Activity
[2018-07-30 14:04] LABS: ALBUMIN 4.1 g/dl (3.4-5.0); ALK PHOS 108 U/L (45-117); ANION GAP 8 MMOL/L (8-16); BILIRUBIN,TOTAL 0.5 mg/dL (0.2-1); BLOOD UREA NITROGEN 15 mg/dL (7-18); CALCIUM 9.1 mg/dL (8.5-10.1); CHLORIDE 104 mmol/L (98-107); CO2 27 mmol/L (21-32); GLUCOSE,RANDOM 106 mg/dL (74-106); POTASSIUM 4.1 mmol/L (3.5-5.1); SGOT/AST 17 U/L (15-37); SGPT/ALT 34 U/L (13-61); SODIUM 139 mmol/L (136-145); TOT PROT 7.6 g/dl (6.4-8.2)
[2018-07-30 14:28] LABS: ERYTHROCYTE SEDIMENTATION RATE 5 mm/hr (0-30)
[2018-07-30 14:30] LABS: HEMATOCRIT 46.4 % (32.4-45.2); MCH 30.5 pg (25.7-33.7); MCHC 34.5 g/dl (32.0-36.0); MEAN CELL VOLUME 88.4 fl (80-96); MEAN PLT VOLUME 8.6 fl (7.5-11.1); PLATELET COUNT 277 K/MM3 (134-434); RBC 5.25 M/mm3 (3.60-5.2); RDW 14.3 % (11.6-15.6); WHITE BLOOD COUNT 8.3 K/mm3 (4.0-10.0)
== END 2018-07-30 18:44 | disposition home or self-care (01) ==
LOC: JERFT 11:47
DX: R52 Pain, unspecified (principal)
CPT/HCPCS: 36415; 80053; 85027; 85651; 86140; 93970-TC; 99281-25

== ENCOUNTER 2018-08-21 14:21 | Inpatient (IN) | payer OTHER ==
[2018-08-21] MEDS ORDERED: ACETAMINOPHEN 1000 MG/100 ML VIAL (NON FORMULARY) IVPB ONE (14:54)
[2018-08-21] MEDS ORDERED: SODIUM CHLORIDE 1,000 ML IV STA ×2 (14:54→19:29)
[2018-08-21] MEDS ORDERED: ACETAMINOPHEN INJECTION 100 ML IVPB ONE (14:58)
[2018-08-21 15:02] LABS: BASO % 0.4 % (0-2.0); EOS % 0.8 % (0-4.5); HEMATOCRIT 45.1 % (32.4-45.2); HEMOGLOBIN 15.7 GM/dL (10.7-15.3); LYMPH % 22.3 % (8-40); MCH 30.9 pg (25.7-33.7); MCHC 34.8 g/dl (32.0-36.0); MEAN PLT VOLUME 8.4 fl (7.5-11.1); MONO % 6.3 % (3.8-10.2); NEUT % 70.2 % (42.8-82.8); PLATELET COUNT 204 K/MM3 (134-434); RBC 5.07 M/mm3 (3.60-5.2); RDW 14.7 % (11.6-15.6); WHITE BLOOD COUNT 9.1 K/mm3 (4.0-10.0)
--- NOTE | 2018-08-21 15:15 | PDOC ---
Attending Attestation - HPI HPI: 08/21/18 15:25 The patient is a 58 year old female with a past medical history of anxiety, HLD , and chronic pain brought in by EMS today for evaluation of neck and hip pain. As per EMS, they report being called in by the patients neighbor after the neighbor heard a scream. The patient reports laying on the floor all night and is unsure of whether she fell asleep or not but remembers waking up when EMS came. She reports neck and left hip pain. Patient denies headache, lightheadedness. Denies fever, chills. Denies chest pain, shortness of breath. Denies nausea, vomiting, diarrhea, abdominal pain. Allergies: NKA Surgical history: left hip surgery 2012 PCP: Ghassan Kline - Medical Decision Making 08/21/18 15:26 Documentation prepared by SHAMA Chambers, acting as medical screener for Michele Gunn MD. The patient is a 58 year old female with a past medical history of anxiety, HLD , and chronic pain brought in by EMS today for evaluation of neck and hip pain. <Luisito Dumont - Last Filed: 08/21/18 15:25> - Resident Resident Name: Columba Sauer - ED Attending Attestation I have performed the following: I have examined & evaluated the patient, The case was reviewed & discussed with the resident, I agree w/resident's findings & plan, Exceptions are as noted - Physicial Exam PE: 08/21/18 16:13 Vitals: Triage Vital signs reviewed General Appearance: no acute distress, well nourished well developed, Head: Atraumatic, Eyes: Pupils equal reactive round, extraocular movement intact Neck: Supple;No Nucal rigidity, mild midline ttp Chest Wall: Nontender Cardiac: Regular rate and rhythym, no murmurs, no rubs, no gallops, Lungs: Clear to auscultation bilateral, good air movement bilaterally, Abdomen: Soft, non distended, normal bowel sounds, non tender to palpation Extremities: Full range of motion to all extremities, no cyanosis, clubbing, or edema Skin: Warm and dry, no rashes or lesions, no rash, no petechiae Neuro:Strength intact to all extremities, Sensation intact to all extremities, Generalized weakness Psych: odd affect - Medical Decision Making 08/21/18 16:11 Fall to floor versus syncope unknown duration of time on the floor patient is very poor historian with chronic pain We will CT head and neck labs observe pain medication and reassess Dr. Mcmahon to follow up labs and imaging and dispo <Michele Gunn - Last Filed: 08/21/18 16:15>
[2018-08-21 15:42] VITALS: BMI 25.9
--- NOTE | 2018-08-21 15:52 | EKG ---
Test Reason : Blood Pressure : / mmHG Vent. Rate : 119 BPM Atrial Rate : 119 BPM P-R Int : 132 ms QRS Dur : 076 ms QT Int : 316 ms P-R-T Axes : 036 029 004 degrees QTc Int : 444 ms SINUS TACHYCARDIA OTHERWISE NORMAL ECG NO PREVIOUS ECGS AVAILABLE Confirmed by PONCE PIERRE, NITZA ([id number]) on 08/21/2018 3:52:24 PM Referred By: Confirmed By:NITZA SERRA MD
[2018-08-21 18:59] LABS: ALBUMIN 3.8 g/dl (3.4-5.0); ALK PHOS 102 U/L (45-117); ANION GAP 12 MMOL/L (8-16); BILIRUBIN,TOTAL 0.8 mg/dL (0.2-1); BLOOD UREA NITROGEN 20 mg/dL (7-18); CALCIUM 8.8 mg/dL (8.5-10.1); CHLORIDE 106 mmol/L (98-107); CO2 24 mmol/L (21-32); CREATININE 1.1 mg/dL (0.55-1.3); GLUCOSE,RANDOM 117 mg/dL (74-106); POTASSIUM 4.4 mmol/L (3.5-5.1); SGOT/AST 37 U/L (15-37); SGPT/ALT 30 U/L (13-61); SODIUM 142 mmol/L (136-145); TOT PROT 6.9 g/dl (6.4-8.2)
--- NOTE | 2018-08-21 21:44 | PDOC ---
History of Present Illness - General Chief Complaint: Injury Stated Complaint: FALL Time Seen by Provider: 08/21/18 14:27 History Source: Patient, Family (sister in law) Exam Limitations: Other - History of Present Illness Initial Comments: 08/21/18 21:05 *Pt is poor historian Pt is a 58yo F with PMH of chronic pain, anxiety, L hip surgery 2012 BIBA for fall. Per EMS, a call was received by neighbor who heard a screaming and a bang. Per sister in law, pt had not responded to phone calls for over 48 hours. Pt states that she was in her apartment on the floor. She remembers going to sleep on the floor and trying to get onto the bed but couldn't so she stayed on the floor. She does not remember if she syncopized or hit her head. She is complaining of generalized body aches, mainly in the R and L ITB. PMD: [place] PMH: see hpi Meds: none Social: denies Allergies: nkda Past History - Past Medical History Allergies/Adverse Reactions: Allergies Allergy/AdvReac Type Severity Reaction Status Date / Time No Known Allergies Allergy Verified 07/30/18 12:13 Home Medications: Ambulatory Orders Cholecalciferol (Vitamin D3) [Vitamin D3 -] 1,000 unit PO DAILY 07/09/17 Cyanocobalamin [Vitamin B12 -] 1,000 mcg PO DAILY 07/09/17 Duloxetine HCl [Cymbalta] 30 mg PO DAILY 07/09/17 LORazepam [Ativan] 0.5 mg PO TID 07/09/17 Amitriptyline HCl [Elavil -] 25 mg PO HS #30 tablet 01/18/18 Pregabalin [Lyrica -] 100 mg PO TID #90 capsule MDD 3 01/18/18 Rosuvastatin [Crestor -] 5 mg PO HS tablet 01/18/18 Gabapentin 300 mg PO HS #30 capsule 07/30/18 Anemia: No Asthma: No Cancer: No Cardiac Disorders: No CVA: No COPD: No CHF: No DVT: No Dementia: No Diabetes: No GI Disorders: No Disorders: No HTN: No Hypercholesterolemia: Yes Liver Disease: No Psychiatric Problems: Yes (ANXIETY) Seizures: No Thyroid Disease: No - Surgical History Abdominal Surgery: No Appendectomy: No Cardiac Surgery: No Cholecystectomy: No Lung Surgery: No Neurologic Surgery: No Orthopedic Surgery: Yes (Left hip replacement surgery) - Suicide/Smoking/Psychosocial Hx Smoking History: Never smoked Have you smoked in the past 12 months: No Information on smoking cessation initiated: No Hx Alcohol Use: No Drug/Substance Use Hx: No Substance Use Type: None Hx Substance Use Treatment: No Review of Systems - Review of Systems Constitutional: Yes: Weakness. No: Chills, Fever, Malaise HEENTM: Yes: Other (dry mouth). No: Eye Pain, Double Vision, Tinnitus Respiratory: No: Cough, Shortness of Breath Cardiac (ROS): Yes: Syncope. No: Chest Pain, Lightheadedness, Palpitations ABD/GI: No: Constipated, Diarrhea, Nausea, Vomiting, Abdominal cramping : No: Burning, Dysuria Musculoskeletal: Yes: Joint Pain, Muscle Pain Integumentary: No: Symptoms Reported Neurological: Yes: Weakness ( R wrist s/p carpal tunnel surgery). No: Headache , Numbness, Tingling, Tremors *Physical Exam - Vital Signs Last Vital Signs Temp Pulse Resp BP Pulse Ox 100.4 F H 108 H 18 113/86 97 08/21/18 19:12 08/21/18 19:12 08/21/18 19:12 08/21/18 19:12 08/21/18 19:12 - Physical Exam General Appearance: Yes: Nourished, Appropriately Dressed, Mild Distress, Other (C-collar in place) HEENT: positive: EOMI, GODWIN, Pharynx Normal, Other (dry mucosal membranes). negative: Pale Conjunctivae, Scleral Icterus (R), Scleral Icterus (L), Pharyngeal Erythema, Nasal Congestion Neck: positive: Trachea midline, Supple. negative: Carotid bruit, Lymphadenopathy (R), Lymphadenopathy (L) Respiratory/Chest: positive: Lungs Clear, Normal Breath Sounds. negative: Crackles, Rales, Rhonchi, Stridor, Wheezing Cardiovascular: positive: Regular Rhythm, S1, S2, Tachycardia. negative: Edema , JVD, Murmur Vascular Pulses: Carotid (R): 2+, Carotid (L): 2+, Dorsalis-Pedis (R): 2+, Doralis-Pedis (L): 2+ Gastrointestinal/Abdominal: positive: Normal Bowel Sounds, Soft. negative: Protuberent, Guarding, Rebound Musculoskeletal: positive: Other (L and R thigh tenderness). negative: CVA Tenderness, Vertebral Tenderness Extremity: positive: Normal Capillary Refill, Pelvis Stable. negative: Coldness , Cyanosis, Swelling, Calf Tenderness Integumentary: positive: Normal Color, Dry, Warm, Other (erythema and scab on knees bilaterally). negative: Erythema, Jaundice, Petechiae, Rash, Swelling, Bruising Neurologic: positive: life manager II-XII NML intact, Fully Oriented, Alert, Normal Response, Motor Strength 5/5 (R finger grasp strength decreased (baseline per pt )). negative: Facial Droop, Numbness, Sensory Deficit, Confused, Disoriented Moderate Sedation - Procedure Monitoring Vital Signs: Procedure Monitoring Vital Signs Temperature 100.4 F H 08/21/18 19:12 Pulse Rate 108 H 08/21/18 19:12 Respiratory Rate 18 08/21/18 19:12 Blood Pressure 113/86 08/21/18 19:12 O2 Sat by Pulse Oximetry (%) 97 08/21/18 19:12 ED Treatment Course - LABORATORY CBC & Chemistry Diagram: 08/21/18 14:30 08/21/18 17:30 - ADDITIONAL ORDERS Additional order review: Laboratory Results 08/21/18 08/21/18 08/21/18 17:30 17:30 14:30 Sodium 142 Cancelled Potassium 4.4 Cancelled Chloride 106 Cancelled Carbon Dioxide 24 Cancelled Anion Gap 12 Cancelled BUN 20 H Cancelled Creatinine 1.1 Cancelled Creat Clearance w eGFR 50.84 Cancelled Random Glucose 117 H Cancelled Calcium 8.8 Cancelled Total Bilirubin 0.8 Cancelled AST 37 Cancelled ALT 30 Cancelled Alkaline Phosphatase 102 Cancelled Creatine Kinase 1068 H Creatine Kinase Index 0.4 CK-MB (CK-2) 4.8 H Troponin I < 0.02 0.02 Total Protein 6.9 Cancelled Albumin 3.8 Cancelled TSH 1.06 08/21/18 14:30 RBC 5.07 MCV 89.0 MCHC 34.8 RDW 14.7 MPV 8.4 Neutrophils % 70.2 D Lymphocytes % 22.3 D Monocytes % 6.3 Eosinophils % 0.8 Basophils % 0.4 - Medications Given in the ED: ED Medications Discontinued Medications Generic Name Dose Route Start Last Admin Trade Name Freq PRN Reason Stop Dose Admin Acetaminophen 1,000 mg 08/21/18 14:54 08/21/18 15:03 Ofirmev Injection - IVPB 08/21/18 14:55 1,000 mg ONCE ONE Administration Sodium Chloride 1,000 mls @ 1,000 mls/hr 08/21/18 14:54 08/21/18 15:02 Normal Saline - IV 08/21/18 15:53 1,000 mls/hr ASDIR STA Administration Sodium Chloride 1,000 mls @ 1,000 mls/hr 08/21/18 19:29 08/21/18 19:54 Normal Saline - IV 08/21/18 20:28 1,000 mls/hr ASDIR STA Administration Medical Decision Making - Medical Decision Making 08/22/18 00:15 Pt is a 58yo F with PMH of chronic pain, anxiety, L hip surgery 2013 BIBA for fall. Per EMS, a call was received by neighbor who heard a screaming and a bang. Per sister in law, pt had not responded to phone calls for over 48 hours. Vitals: tachycardia, normotensive, saturating well on RA, afebrile (oral temp ) Pt may or may not have had syncopal episode. tachycardia: infectious, dehydration, anemia, PE -Low suspicion for PE, pt does not have chest pain, does not feel SOB, syncope unclear. tachycardia better explained by dehydration or infection. -CT head and c-spine -rectal temp ordered -cbc cmp, ck, trop, tsh, ekg, cxr -Ua, Ucx -IV tylenol, IV fluids -Repeat vitals -Rectal temp 100.4, HR after 1L and Tylenol 108. Pt still complaining about pain. CT head and C spine negative for acute process and fracture. CT cspine shows disc herniation. No radiculopathy type symptoms expressed by pt. CBC shows Hgb 16. CK 1000. Negative trop, electrolytes wnl. EKG: sinus tachycardia, no signs of acute ischemia CXR: no signs of acute pathology Pt not urinating and refusing straight cath. Fever most likely reactive, low suspicion for infection. Talked to admitting team. Recommended one set of blood cultures, CRP, ESR, HIV, Hep C, LR @125mL/hr. admitted tele/obs *DC/Admit/Observation/Transfer Diagnosis at time of Disposition: Syncope Qualifiers: Syncope type: unspecified Qualified Code(s): R55 - Syncope and collapse - Discharge Dispostion Condition at time of disposition: Good Decision to Admit order: Yes - Referrals - Patient Instructions - Post Discharge Activity
--- NOTE | 2018-08-21 22:36 | HP ---
CHIEF COMPLAINT: Fall PCP: None HISTORY OF PRESENT ILLNESS: 58yo F with history of anxiety, HLD, and chronic pain syndrome who presents today s/p fall. Pt is a poor historian, continually needs redirection and is extremely anxious. From what can be gathered, the neighbour heard a loud noise in her apartment and called an ambulance. Pt reports that she slipped out of bed and did not lose consciousness. She reports this was around in 1:30pm today , however she continually changes the time it happened. Pt reports crawling on the floor and being unable to get up. Ambulance arrive and brought patient to the ER for further workup. 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 Pt was previously evaluated by psychiatry and neurology for her chronic pain syndrome with likely psychiatric component. No acute changes from her baseline at this point. Denies dizziness, lightheadedness, shortness of breath, f/c/n/v/diarrhea/ constipation. Recent Travel: Denies PAST MEDICAL HISTORY: Anxiety HLD Chronic pain syndrome PAST SURGICAL HISTORY: Social History: Smoking: Denies Alcohol: Denies Drugs: Denies Family History: Noncontributory Allergies No Known Allergies Allergy (Verified 07/30/18 12:13) HOME MEDICATIONS: Home Medications Medication Instructions Recorded Cholecalciferol (Vitamin D3) 1,000 unit PO DAILY 07/09/17 [Vitamin D3 -] Cyanocobalamin [Vitamin B12 -] 1,000 mcg PO DAILY 07/09/17 Duloxetine HCl [Cymbalta] 30 mg PO DAILY 07/09/17 LORazepam [Ativan] 0.5 mg PO TID 07/09/17 Amitriptyline HCl [Elavil -] 25 mg PO HS #30 tablet 01/18/18 Pregabalin [Lyrica -] 100 mg PO TID #90 capsule MDD 3 01/18/18 Rosuvastatin [Crestor -] 5 mg PO HS tablet 01/18/18 Gabapentin 300 mg PO HS #30 capsule 07/30/18 REVIEW OF SYSTEMS As per HPI PHYSICAL EXAMINATION Vital Signs - 24 hr 08/21/18 08/21/18 14:27 19:12 Temperature 97.6 F 100.4 F H Pulse Rate 119 H Pulse Rate [ 108 H Left Radial] Respiratory 16 18 Rate Blood Pressure 131/83 Blood Pressure 113/86 [Right Arm] O2 Sat by Pulse 98 97 Oximetry (%) GENERAL: NAD, awake, alert, and fully oriented HEENT: NC/AT, EOMI, ZAID, MMM, hirsutism noted NECK: No JVD, soft LUNGS: CTA bilaterally. No wheezes, and no crackles. No accessory muscle use. HEART: Tachycardic with regular rhythm, normal S1 and S2 without murmur ABDOMEN: Soft, nondistended, TTP diffusely, normoactive BS, no guarding, no masses appreciated. MUSCULOSKELETAL: No bony deformities or tenderness. No CVA tenderness. EXTREMITIES: 2+ DP pulses, No peripheral edema. NEUROLOGICAL: barrel raiser helper II-XII intact. Strength 5/5 throughout, sensation in lower extremities intact. Normal speech. Gait not observed PSYCHIATRIC: Anxious, fleeting thoughts and needing constant redirection. SKIN: Warm, dry, contusions/abrasions of b/l knees without any weeping fluid or drainage. Laboratory Results 08/21/18 08/21/18 14:30 17:30 WBC 9.1 RBC 5.07 Hgb 15.7 H Hct 45.1 MCV 89.0 MCH 30.9 MCHC 34.8 RDW 14.7 Plt Count 204 D MPV 8.4 Absolute Neuts (auto) 6.4 Neutrophils % 70.2 D Lymphocytes % 22.3 D Monocytes % 6.3 Eosinophils % 0.8 Basophils % 0.4 Nucleated RBC % 0 Sodium 142 Potassium 4.4 Chloride 106 Carbon Dioxide 24 Anion Gap 12 BUN 20 H Creatinine 1.1 Creat Clearance w eGFR 50.84 Random Glucose 117 H Calcium 8.8 Total Bilirubin 0.8 AST 37 ALT 30 Alkaline Phosphatase 102 Creatine Kinase 1068 Creatine Kinase Index 0.4 CK-MB (CK-2) 4.8 Troponin I < 0.02 Total Protein 6.9 Albumin 3.8 TSH ASSESSMENT/PLAN: Elevated CK Mechanical fall Anxiety Abdominal pain Low grade fevers HLD Complex regional pain syndrome --Elevated cK with risk of rhabdomyolysis --Will trend CK --LR@125cc/hr --Inputs and outputs to be monitored --Mechanical fall; not syncope --Physical therapy evaluation recommended --CT Head negative at this point --Continue home anxiety medications --Elavil 25mg qDaily --Cymbalt 30mg qDaily --Alprazolam 0.5mg TID PRN for breakthrough --Will obtain CT A/P noncontrast to survey due to abdominal pain and low grade fevers --Obtain UA when possible; pt has not urinated at this point and is refusing straight cath --CRP/ESR --Hold Crestor for now given diffuse discomfort and CK elevation FEN: Fluids: LR@125cc/hr Electrolytes: No abnormalities currently Nutrition: Cholesterol controlled diet PPX: DVT - Lovenox SQ daily GI - Not indicated Dispo: Observation; PT eval Case discussed with Dr. Breanna Feliz, DO - IM PGY-2 Visit type - Emergency Visit Emergency Visit: Yes ED Registration Date: 08/22/18 Care time: The patient presented to the Emergency Department on the above date and was hospitalized for further evaluation of their emergent condition. - New Patient This patient is new to me today: Yes Date on this admission: 08/22/18 - Critical Care Critical Care patient: No
[2018-08-21] MEDS: LACTATED RINGERS SOLUTION 1,000 ML/1,000 ML INFUS.BAG IV SCH (23:15)
--- NOTE | 2018-08-21 23:16 | PN ---
Teaching Attending Note Name of Resident: Rodolfo Feliz ATTENDING PHYSICIAN STATEMENT I saw and evaluated the patient. I reviewed the resident's note and discussed the case with the resident. I agree with the resident's findings and plan as documented. SUBJECTIVE: Seen and examined; please see resident note for further historical information. In summation, this is a 58 y/o CF presenting to the ER complaining of discomfort in her abdomen and throughout her body as well as with bruising on her BL LE due to a mechanical fall sustained this AM. She tells me that she had a mechanical fall at 1PM today and spent hours trying to get up but failing. She has pain thoughout her body and states that she has pain has been present for months; not related to her crestor. She has nonspecific abdominal pain that is not localizable. She was slightly febrile. Found to have elevated CK. She only has a PMH per her of HLD and Anxiety and takes crestor and ativan. No acute pathology on trauma survey. She is a somewhat poor historian. The 'tightness and burning' she describes throughout her body have previously been worked up by neurology; no changes and this was not the cause for ER visit. 10 sys ROS done and negative aside from HPI PMH and PSH reviewed FH asked and noncontributory Social hx reviewed Medication list reviewed; reconciliation pending. OBJECTIVE: VS, labs, imaging reviewed NAD, AAO, resting comfortably in bed [place], [place] AT EOMI PERRLA RRR to tachy (slight) s1/2 no mgr Lungs CTAB w/ sym exp Tender throughout to palpation with normal bowel sounds and no distention CN2-12 wnl, no fnd Bruising b/l LE around knees, no lacerations or cellulitis. Appears recent. CT head and C-spine reviewed; no acute pathology on either BUT 1x0.6cm sclerotic focus seen within te base of the L T1 transverse process probably representing bone island and less likely osteoblastic metastatic disease. Recommended comparing to prior studies and if none available additional eval using whole body radionucleide scan may be preformed. CBC unremarkable as is BMP. CK elevated at 108, CKMB 4.8, UA pending and she refused straight cath, ASSESSMENT AND PLAN: Patient presents with suspected syncope but to us she reveals that this is a mechanical fall; she iterates she fell from bed and was not dizzy, no prodromal sx, no LOC, no confusion or neuro sx or cardio/pulm sx. 1) Elevated CK post fall; suspected rhabdo -1000-range; trend CK, hydrate empirically. At risk for rhabdo. -Monitor Is and Os, monitor renal function. If continues to elevate we will up the rate of fluid andtreat for rhabdo. 2) Mechanical Fall -Less likely syncope given the history we obtained; EKG reviewed. -PT consult 3) Fever (low grade) -Unclear source; needs UA but is refusing straight cath and hasn't gone. Followup CT and UA (if available). Hemodynamics stable and not septic and no white count so not treating empirically. Will cover if clinically indicated or should a source become evident or she decline. Check ESR/CRP. 4) Anxiety -Reconcile and continue home medications 5) HLD -Hold crestor given muscle pains but this is chronic 6) Chronic muscle pains and tightness -Noted in prior neuro consult, unchanged. Continue her home medications. 7) Sclerotic Focus T1 -Prior studies should be compared; if none available bone scan (per radiology recs) FENA -LR @100 -PRN replete -Regular diet -Fall precautions, PT consult Full Code
[2018-08-21] MEDS ORDERED: LORazepam 0.5 MG TABLET PO PRN (23:17)
[2018-08-22 02:37] LABS: ANION GAP 6 MMOL/L (8-16); BLOOD UREA NITROGEN 21 mg/dL (7-18); CALCIUM 7.8 mg/dL (8.5-10.1); CHLORIDE 109 mmol/L (98-107); CO2 26 mmol/L (21-32); GLUCOSE,RANDOM 96 mg/dL (74-106); POTASSIUM 4.1 mmol/L (3.5-5.1); SODIUM 142 mmol/L (136-145)
[2018-08-22] MEDS ORDERED: CALCIUM (OYSTER SHELL) 500 MG TABLET (FP) PO ONE (02:46)
[2018-08-22 05:51] LABS: HEMATOCRIT 38.1 % (32.4-45.2); HEMOGLOBIN 13.2 GM/dL (10.7-15.3); MCHC 34.7 g/dl (32.0-36.0); MEAN CELL VOLUME 89.3 fl (80-96); MEAN PLT VOLUME 8.7 fl (7.5-11.1); PLATELET COUNT 162 K/MM3 (134-434); RBC 4.27 M/mm3 (3.60-5.2); RDW 14.6 % (11.6-15.6); WHITE BLOOD COUNT 6.7 K/mm3 (4.0-10.0)
--- NOTE | 2018-08-22 09:05 | PN ---
Physical Exam: SUBJECTIVE: Patient seen and examined. She complains of pain everywhere. OBJECTIVE: Vital Signs Period Temp Pulse Resp BP Sys/Mckeon Pulse Ox Last 24 Hr 97.6 F-100.4 F 100-119 16-20 108-131/70-86 95-99 GENERAL: The patient is awake, alert, and fully oriented, in no acute distress. LUNGS: Breath sounds equal, clear to auscultation bilaterally, no wheezes, no crackles, no accessory muscle use. HEART: Regular rhythm, tachycardic, S1, S2 without murmur, rub or gallop. ABDOMEN: Soft, nontender, nondistended, normoactive bowel sounds, no guarding, no rebound, no hepatosplenomegaly, no masses. EXTREMITIES: 2+ pulses, warm, well-perfused, no edema. Laboratory Results - last 24 hr 08/21/18 08/21/18 08/21/18 14:30 14:30 17:30 WBC 9.1 RBC 5.07 Hgb 15.7 H Hct 45.1 MCV 89.0 MCH 30.9 MCHC 34.8 RDW 14.7 Plt Count 204 D MPV 8.4 Absolute Neuts (auto) 6.4 Neutrophils % 70.2 D Lymphocytes % 22.3 D Monocytes % 6.3 Eosinophils % 0.8 Basophils % 0.4 Nucleated RBC % 0 ESR Sodium Cancelled 142 Potassium Cancelled 4.4 Chloride Cancelled 106 Carbon Dioxide Cancelled 24 Anion Gap Cancelled 12 BUN Cancelled 20 H Creatinine Cancelled 1.1 Creat Clearance w eGFR Cancelled 50.84 Random Glucose Cancelled 117 H Calcium Cancelled 8.8 Total Bilirubin Cancelled 0.8 AST Cancelled 37 ALT Cancelled 30 Alkaline Phosphatase Cancelled 102 Creatine Kinase Creatine Kinase Index CK-MB (CK-2) Troponin I 0.02 < 0.02 C-Reactive Protein Total Protein Cancelled 6.9 Albumin Cancelled 3.8 TSH 1.06 HIV 1&2 Antibody Screen HIV P24 Antigen 08/21/18 08/21/18 08/21/18 17:30 19:30 22:38 WBC RBC Hgb Hct MCV MCH MCHC RDW Plt Count MPV Absolute Neuts (auto) Neutrophils % Lymphocytes % Monocytes % Eosinophils % Basophils % Nucleated RBC % ESR 52 H Sodium Potassium Chloride Carbon Dioxide Anion Gap BUN Creatinine Creat Clearance w eGFR Random Glucose Calcium Total Bilirubin AST ALT Alkaline Phosphatase Creatine Kinase 1068 H 919 H Creatine Kinase Index 0.4 0.3 CK-MB (CK-2) 4.8 H 3.0 Troponin I C-Reactive Protein 5.3 H Total Protein Albumin TSH HIV 1&2 Antibody Screen HIV P24 Antigen 08/21/18 08/22/18 08/22/18 22:38 02:01 05:15 WBC 6.7 RBC 4.27 Hgb 13.2 Hct 38.1 D MCV 89.3 MCH 31.0 MCHC 34.7 RDW 14.6 Plt Count 162 D MPV 8.7 Absolute Neuts (auto) Neutrophils % Lymphocytes % Monocytes % Eosinophils % Basophils % Nucleated RBC % ESR Sodium 142 Potassium 4.1 Chloride 109 H Carbon Dioxide 26 Anion Gap 6 L BUN 21 H Creatinine 1.0 Creat Clearance w eGFR 56.75 Random Glucose 96 Calcium 7.8 L Total Bilirubin AST ALT Alkaline Phosphatase Creatine Kinase 743 H Creatine Kinase Index 0.3 CK-MB (CK-2) 2.3 Troponin I C-Reactive Protein Total Protein Albumin TSH HIV 1&2 Antibody Screen Negative HIV P24 Antigen Negative Active Medications Generic Name Dose Route Start Last Admin Trade Name Freq PRN Reason Stop Dose Admin Amitriptyline HCl 25 mg 08/22/18 22:00 Elavil - PO HS OLIVER Duloxetine HCl 30 mg 08/22/18 10:00 Cymbalta - PO DAILY OLIVER Gabapentin 300 mg 08/22/18 22:00 Neurontin - PO HS OLIVER Lactated Ringer's 1,000 ml in 1,000 mls @ 125 mls/hr 08/21/18 22:30 08/21/18 23:15 Lactated Ringers Solution IV 125 mls/hr ASDIR OLIVER Administration Lorazepam 0.5 mg 08/21/18 23:17 Ativan - PO TID PRN ANXIETY ASSESSMENT/PLAN: This is a 58 year old woman with a history of anxiety, hyperlipidemia, and chronic pain syndrome who presented to the ED after a fall. 1. Rhabdomyolysis - CK improving - Continue IV fluid 2. s/p fall - Physical therapy evaluation 3. SIRS (temp 100.4, tachycardia) - Patient had abdominal pain - CT pending - Check influenza A/B - Check UA - Continue IV fluid 4. Hyperlipidemia - Crestor held secondary to elevated CK 5. Anxiety - Continue Cymbalta, Elavil, Ativan as needed 6. Complex regional pain syndrome of RLE/chronic pain syndrome - Continue CymbalStephen stewartavil, Neurontin Visit type - Emergency Visit Emergency Visit: Yes ED Registration Date: 08/22/18 Care time: The patient presented to the Emergency Department on the above date and was hospitalized for further evaluation of their emergent condition. - New Patient This patient is new to me today: Yes Date on this admission: 08/22/18 - Critical Care Critical Care patient: No - Discharge Referral Referred to [facility] No
[2018-08-22] MEDS ORDERED: DULoxetine HCL 30 MG CAPSULE.DR (FP) PO ONE (09:08)
[2018-08-22] MEDS: DULoxetine HCL 30 MG CAPSULE.DR (FP) PO SCH ×2 (09:09→09:18)
[2018-08-22] MEDS: LACTATED RINGERS SOLUTION 1,000 ML/1,000 ML INFUS.BAG IV SCH (12:52)
[2018-08-22] MEDS ORDERED: ACETAMINOPHEN 325 MG TABLET (FP) PO PRN (17:01)
[2018-08-22] MEDS: oxyCODONE HCL 5 MG TABLET PO PRN (17:42)
[2018-08-22] MEDS ORDERED: GABAPENTIN 300 MG CAPSULE (FP) PO SCH (22:00)
[2018-08-22] MEDS ORDERED: ROSUVASTATIN CA 5 MG TABLET (FP) PO SCH (22:00)
[2018-08-22] MEDS ORDERED: AMITRIPTYLINE HCL 25 MG TABLET (FP) PO SCH (22:00)
[2018-08-23] MEDS: LACTATED RINGERS SOLUTION 1,000 ML/1,000 ML INFUS.BAG IV SCH ×2 (06:21→17:19)
[2018-08-23 08:32] LABS: BASO % 0.3 % (0-2.0); EOS % 2.6 % (0-4.5); HEMATOCRIT 32.7 % (32.4-45.2); HEMOGLOBIN 11.8 GM/dL (10.7-15.3); LYMPH % 44.7 % (8-40); MCH 32.7 pg (25.7-33.7); MEAN CELL VOLUME 90.9 fl (80-96); MEAN PLT VOLUME 8.7 fl (7.5-11.1); MONO % 6.9 % (3.8-10.2); NEUT % 45.5 % (42.8-82.8); PLATELET COUNT 134 K/MM3 (134-434); RDW 14.4 % (11.6-15.6); WHITE BLOOD COUNT 4.4 K/mm3 (4.0-10.0)
[2018-08-23 08:55] LABS: ANION GAP 6 MMOL/L (8-16); BLOOD UREA NITROGEN 12 mg/dL (7-18); CALCIUM 8.1 mg/dL (8.5-10.1); CHLORIDE 112 mmol/L (98-107); CO2 26 mmol/L (21-32); CREATININE 0.7 mg/dL (0.55-1.3); GLUCOSE,RANDOM 92 mg/dL (74-106); POTASSIUM 3.8 mmol/L (3.5-5.1); SODIUM 144 mmol/L (136-145)
[2018-08-23] MEDS ORDERED: CHOLECALCIFEROL (VITAMIN D3) 1,000 UNIT TABLET (FP) PO SCH (10:00)
[2018-08-23] MEDS ORDERED: CYANOCOBALAMIN 1,000 MCG TABLET (FP) PO SCH (10:00)
--- NOTE | 2018-08-23 11:00 | PN ---
Physical Exam: SUBJECTIVE: Patient seen and examined this AM. She is complaining of pain and tightness all over. OBJECTIVE: Vital Signs Period Temp Pulse Resp BP Sys/Mckeon Pulse Ox Last 24 Hr 97.2 F-98.2 F 69-95 17-20 107-118/62-78 98-99 GENERAL: A&O, no acute distress EYES: PERRL, no scleral icterus EARS, NOSE, THROAT: oropharynx clear without exudates. Moist mucous membranes. NECK: supple without lymphadenopathy LUNGS: CTA b/l, no crackles or wheezes HEART: Regular rate and rhythm, normal S1 and S2 without murmur ABDOMEN: Soft, nontender to palpation, normoactive bowel sounds MUSCULOSKELETAL: Tenderness to palpation of knee joints, R > L EXTREMITIES: warm, well-perfused. No peripheral edema. NEUROLOGICAL: Cranial nerves II-XII grossly intact. Normal speech. SKIN: Warm, dry, no rashes or lesions noted Laboratory Results - last 24 hr 08/22/18 08/22/18 08/23/18 15:00 18:00 08:00 WBC 4.4 RBC 3.60 Hgb 11.8 Hct 32.7 MCV 90.9 MCH 32.7 MCHC 36.0 RDW 14.4 Plt Count 134 MPV 8.7 Absolute Neuts (auto) 2.0 Neutrophils % 45.5 D Lymphocytes % 44.7 H D Monocytes % 6.9 Eosinophils % 2.6 D Basophils % 0.3 Nucleated RBC % 0 Sodium Potassium Chloride Carbon Dioxide Anion Gap BUN Creatinine Creat Clearance w eGFR Random Glucose Calcium Creatine Kinase Creatine Kinase Index CK-MB (CK-2) Vitamin B12 703 Influenza A (Rapid) Negative Influenza B (Rapid) Negative 08/23/18 08:00 WBC RBC Hgb Hct MCV MCH MCHC RDW Plt Count MPV Absolute Neuts (auto) Neutrophils % Lymphocytes % Monocytes % Eosinophils % Basophils % Nucleated RBC % Sodium 144 Potassium 3.8 Chloride 112 H Carbon Dioxide 26 Anion Gap 6 L BUN 12 Creatinine 0.7 Creat Clearance w eGFR > 60 Random Glucose 92 Calcium 8.1 L Creatine Kinase 245 H Creatine Kinase Index 0.4 CK-MB (CK-2) 1.1 Vitamin B12 Influenza A (Rapid) Influenza B (Rapid) Active Medications Generic Name Dose Route Start Last Admin Trade Name Freq PRN Reason Stop Dose Admin Acetaminophen 650 mg 08/22/18 17:01 Tylenol - PO Q4H PRN PAIN LEVEL 1-5 Amitriptyline HCl 25 mg 08/22/18 22:00 08/22/18 21:52 Elavil - PO 25 mg HS OLIVER Administration Cholecalciferol 1,000 unit 08/23/18 10:00 08/23/18 10:19 Vitamin D3 - PO 1,000 unit DAILY OLIVER Administration Lactated Ringer's 1,000 ml in 1,000 mls @ 125 mls/hr 08/21/18 22:30 08/23/18 06:21 Lactated Ringers Solution IV 125 mls/hr ASDIR OLIVER Administration Lorazepam 0.5 mg 08/21/18 23:17 Ativan - PO TID PRN ANXIETY Oxycodone HCl 5 mg 08/22/18 17:00 08/22/18 17:42 Roxicodone - PO 5 mg Q6H PRN Administration PAIN LEVEL 6-10 ASSESSMENT/PLAN: 58 year old woman with a history of anxiety, hyperlipidemia, and chronic pain syndrome who presented to the ED after a fall. Rhabdomyolysis -CK initially > 1000, improving, now 245 -LR @ 125 cc/hr -Monitor renal function and urinary output Mechanical Fall -Physical Therapy eval SIRS - resolved -tachycardic with 100.4 temp on admission - resolved -Flu negative -Abdominal CT negative -Pt has not yet given urine sample, refusing straight cath Hyperlipidemia -Hold home crestor with concern for rhabdo Anxiety -Elavil 25 mg PO HS -Ativan 0.5 mg PO TID PRN Complex regional pain syndrome -Pt states Neurontin/lyrica/cymbalta did not help her pain and that she is no longer taking them -Oxycodone 5 mg PO Q6 and Tylenol 650 mg PO Q4 as we do not have Hydrocodone DVT Prophylaxis -Lovenox 40 mg SQ Daily FEN -Fluids: LR @ 125 cc/hr -Electrolytes: No electrolyte abnormalities, BMP in AM -Nutrition: Cholesterol Controlled diet Disposition Med/Surg Visit type - Emergency Visit Emergency Visit: Yes ED Registration Date: 08/22/18 Care time: The patient presented to the Emergency Department on the above date and was hospitalized for further evaluation of their emergent condition. - New Patient This patient is new to me today: Yes Date on this admission: 08/23/18 - Critical Care Critical Care patient: No
[2018-08-23] MEDS: ENOXAPARIN NA (PORCINE) 40 MG/0.4 ML DISP.SYRIN SQ SCH (11:35)
[2018-08-23] MEDS ORDERED: ONDANSETRON 4 MG/2 ML VIAL IVPUSH ONE (11:38)
[2018-08-23] MEDS ORDERED: POLYETHYLENE GLYCOL 3350 119 GM BTL PO ONE (11:52)
[2018-08-23] MEDS: DOCUSATE SODIUM 100 MG CAPSULE (FP) PO SCH ×2 (13:20→22:11)
[2018-08-23] MEDS: CALCIUM CARBONATE 650 MG TABLET PO SCH ×2 (15:26→22:11)
--- NOTE | 2018-08-23 17:55 | PN ---
Teaching Attending Note Name of Resident: Selvin Noel ATTENDING PHYSICIAN STATEMENT I saw and evaluated the patient. I reviewed the resident's note and discussed the case with the resident. I agree with the resident's findings and plan as documented. SUBJECTIVE: Patient complains of pain and tightness all over. She also complains of weakness in her upper arms that causes he to have difficulty getting up from a chair. OBJECTIVE: Vital Signs Period Temp Pulse Resp BP Sys/Mckeon Pulse Ox Last 24 Hr 97.2 F-98.2 F 76-95 20-20 110-118/62-78 98 HEART: S1S2, RRR LUNGS: Clear ABDOMEN: Soft, non-tender, non-distended, normal BS EXTREMITIES: No edema Laboratory Results - last 24 hr 08/22/18 08/22/18 08/23/18 15:00 18:00 08:00 WBC 4.4 RBC 3.60 Hgb 11.8 Hct 32.7 MCV 90.9 MCH 32.7 MCHC 36.0 RDW 14.4 Plt Count 134 MPV 8.7 Absolute Neuts (auto) 2.0 Neutrophils % 45.5 D Lymphocytes % 44.7 H D Monocytes % 6.9 Eosinophils % 2.6 D Basophils % 0.3 Nucleated RBC % 0 Sodium Potassium Chloride Carbon Dioxide Anion Gap BUN Creatinine Creat Clearance w eGFR Random Glucose Calcium Creatine Kinase Creatine Kinase Index CK-MB (CK-2) Vitamin B12 703 Influenza A (Rapid) Negative Influenza B (Rapid) Negative 08/23/18 08:00 WBC RBC Hgb Hct MCV MCH MCHC RDW Plt Count MPV Absolute Neuts (auto) Neutrophils % Lymphocytes % Monocytes % Eosinophils % Basophils % Nucleated RBC % Sodium 144 Potassium 3.8 Chloride 112 H Carbon Dioxide 26 Anion Gap 6 L BUN 12 Creatinine 0.7 Creat Clearance w eGFR > 60 Random Glucose 92 Calcium 8.1 L Creatine Kinase 245 H Creatine Kinase Index 0.4 CK-MB (CK-2) 1.1 Vitamin B12 Influenza A (Rapid) Influenza B (Rapid) Current Medications Generic Name Dose Route Start Last Admin Trade Name Freq PRN Reason Stop Dose Admin Acetaminophen 650 mg 08/22/18 17:01 Tylenol - PO Q4H PRN PAIN LEVEL 1-5 Amitriptyline HCl 25 mg 08/22/18 22:00 08/22/18 21:52 Elavil - PO 25 mg HS OLIVER Administration Calcium Carbonate 650 mg 08/23/18 13:30 08/23/18 15:26 Calcium Carbonate - PO 650 mg BID OLIVER Administration Cholecalciferol 1,000 unit 08/23/18 10:00 08/23/18 10:19 Vitamin D3 - PO 1,000 unit DAILY OLIVER Administration Docusate Sodium 100 mg 08/23/18 13:15 08/23/18 13:20 Colace - PO 100 mg BID OLIVER Administration Enoxaparin Sodium 40 mg 08/23/18 10:45 08/23/18 11:35 Lovenox - SQ 40 mg DAILY OLIVER Administration Lactated Ringer's 1,000 ml in 1,000 mls @ 125 mls/hr 08/21/18 22:30 08/23/18 17:19 Lactated Ringers Solution IV 125 mls/hr ASDIR OLIVER Administration Lorazepam 0.5 mg 08/21/18 23:17 Ativan - PO TID PRN ANXIETY Oxycodone HCl 5 mg 08/22/18 17:00 08/22/18 17:42 Roxicodone - PO 5 mg Q6H PRN Administration PAIN LEVEL 6-10 ASSESSMENT AND PLAN: This is a 58 year old woman with a history of anxiety, hyperlipidemia, and chronic pain syndrome who presented to the ED after a fall. 1. Rhabdomyolysis - Improved - Discontinue IV fluid 2. s/p fall with myalgias and weakness - ESR is 52, C-RP 5.3 - PETTY, RF pending - Physical therapy evaluation 3. SIRS (temp 100.4, tachycardia) - Resolved - Patient had abdominal pain - CTAP shows right base pleural thickening with mild atelectasis, distended urinary bladder, left THR - Rapid flu negative - Check UA 4. Hyperlipidemia - Crestor held secondary to elevated CK 5. Anxiety - Patient reports that she has not been on Cymbalta - Continue Elavil, Ativan as needed 6. Complex regional pain syndrome of RLE/chronic pain syndrome - Patient reports she has not been on Cymbalta, Neurontin, Lyrica - Continue Elavil, oxycodone as needed
[2018-08-23] MEDS ORDERED: LACTATED RINGERS SOLUTION 1,000 ML/1,000 ML INFUS.BAG IV SCH (20:17)
[2018-08-23] MEDS: oxyCODONE HCL 5 MG TABLET PO PRN (21:04)
[2018-08-23] MEDS ORDERED: PT OWN MED DRAWER 7, Y5N ONE (21:30)
[2018-08-23] MEDS: MELATONIN 5 MG TABLETS PO PRN (22:11)
[2018-08-23] MEDS: AMITRIPTYLINE HCL 25 MG TABLET (FP) PO SCH (22:11)
[2018-08-23] MEDS: LORazepam 0.5 MG TABLET PO PRN (22:11)
--- NOTE | 2018-08-24 08:11 | PN ---
Teaching Attending Note Name of Resident: Selvin Noel ATTENDING PHYSICIAN STATEMENT I saw and evaluated the patient. I reviewed the resident's note and discussed the case with the resident. I agree with the resident's findings and plan as documented. SUBJECTIVE: OBJECTIVE: Vital Signs Temperature 97.8 F 08/24/18 05:00 Pulse Rate 73 08/24/18 05:00 Respiratory Rate 16 08/24/18 05:00 Blood Pressure 99/66 08/24/18 05:00 O2 Sat by Pulse Oximetry (%) 99 08/23/18 21:00 Middle aged f very anxious multiple complaints HEENT: Mm moist, no anemia NECK: No JVd No Bruit CHEST: CTA B/: CVS; s1S2 R no m/g.r ABD: No distention non tender Bs + EXT: trace edema, pulses +, scoliosis + [employer] SAL[employer] REPRESENTATIVE: AoX3 non focal LABS: CK 245 ESR 52 [employer] SPECIALIST 5.3 CBC, BMP 08/24/18 07:41 08/24/18 07:41 ASSESSMENT AND PLAN:58 year old woman with a history of anxiety, hyperlipidemia , and chronic pain syndrome who presented to the ED after a fall. MEDS: Active Medications Acetaminophen (Tylenol -) 650 mg PO Q4H PRN PRN Reason: PAIN LEVEL 1-5 Amitriptyline HCl (Elavil -) 25 mg PO HS [facility] Last Admin: 08/23/18 22:11 Dose: 25 mg Calcium Carbonate (Calcium Carbonate -) 650 mg PO BID [facility] Last Admin: 08/23/18 22:11 Dose: 650 mg Cholecalciferol (Vitamin D3 -) 1,000 unit PO DAILY [facility] Docusate Sodium (Colace -) 100 mg PO BID [facility] Last Admin: 08/23/18 22:11 Dose: 100 mg Enoxaparin Sodium (Lovenox -) 40 mg SQ DAILY [facility] Last Admin: 08/23/18 11:35 Dose: 40 mg Lorazepam (Ativan -) 0.5 mg PO Q8H PRN PRN Reason: ANXIETY Last Admin: 08/23/18 22:11 Dose: 0.5 mg Melatonin (Melatonin) 5 mg PO HS PRN PRN Reason: INSOMNIA Oxycodone HCl (Roxicodone -) 5 mg PO Q6H PRN PRN Reason: PAIN LEVEL 6-10 Last Admin: 08/23/18 21:04 Dose: 5 mg Patient has multiple somatic symptoms as out patient evaluted by Neurology, spine surgeon and rhematologis, c/o body tighness, joints swelling over night , back pain, neck pain labs remained stable CK trended 245 PETTY RA are pending Plan; Encourage Po Hydration FU Pending Result (can be F/U as out patient) PT evaluation; Disposition as per PT in put. Discussed with the team. Problem List - Problems (1) Fall Code(s): W19.XXXA - UNSPECIFIED FALL, INITIAL ENCOUNTER (2) Complex regional pain syndrome i of right lower limb Code(s): G90.521 - COMPLEX REGIONAL PAIN SYNDROME I OF RIGHT LOWER LIMB (3) Anxiety Code(s): F41.9 - ANXIETY DISORDER, UNSPECIFIED (4) Chronic pain Code(s): G89.29 - OTHER CHRONIC PAIN (5) Rhabdomyolysis Code(s): M62.82 - RHABDOMYOLYSIS
[2018-08-24 08:56] LABS: HEMATOCRIT 34.2 % (32.4-45.2); HEMOGLOBIN 11.8 GM/dL (10.7-15.3); MCH 31.3 pg (25.7-33.7); MCHC 34.6 g/dl (32.0-36.0); MEAN CELL VOLUME 90.3 fl (80-96); MEAN PLT VOLUME 8.9 fl (7.5-11.1); PLATELET COUNT 145 K/MM3 (134-434); RBC 3.79 M/mm3 (3.60-5.2); RDW 14.4 % (11.6-15.6); WHITE BLOOD COUNT 4.7 K/mm3 (4.0-10.0)
[2018-08-24 09:22] LABS: ANION GAP 6 MMOL/L (8-16); BLOOD UREA NITROGEN 9 mg/dL (7-18); CALCIUM 8.4 mg/dL (8.5-10.1); CHLORIDE 107 mmol/L (98-107); CO2 29 mmol/L (21-32); CREATININE 0.8 mg/dL (0.55-1.3); GLUCOSE,RANDOM 89 mg/dL (74-106); MAGNESIUM 1.9 mg/dL (1.8-2.4); PHOSPHOROUS 4.1 mg/dL (2.5-4.9); POTASSIUM 4.2 mmol/L (3.5-5.1); SODIUM 143 mmol/L (136-145)
[2018-08-24] MEDS: ENOXAPARIN NA (PORCINE) 40 MG/0.4 ML DISP.SYRIN SQ SCH (10:34)
[2018-08-24] MEDS: CHOLECALCIFEROL (VITAMIN D3) 1,000 UNIT TABLET (FP) PO SCH (10:35)
[2018-08-24] MEDS: CALCIUM CARBONATE 650 MG TABLET PO SCH ×2 (10:35→21:37)
[2018-08-24] MEDS: DOCUSATE SODIUM 100 MG CAPSULE (FP) PO SCH ×2 (10:35→21:37)
[2018-08-24] MEDS: oxyCODONE HCL 5 MG TABLET PO PRN ×2 (11:54→21:41)
--- NOTE | 2018-08-24 16:30 | PN ---
Physical Exam: SUBJECTIVE: Patient seen and examined this AM. She is complaining of pain and stiffness everywhere. Pt did not tolerate PT yesterday, however up and walking around room today, discussed with pt to work with physical therapy and that there is no requirement for her to be in the hospital at this time. Expressed the importance of outpatient follow up with her primary. OBJECTIVE: Vital Signs Period Temp Pulse Resp BP Sys/Mckeon Pulse Ox Last 24 Hr 97.5 F-98.4 F 73-98 16-20 98-118/64-80 99 GENERAL: A&O, anxious EYES: PERRL, no scleral icterus EARS, NOSE, THROAT: oropharynx clear without exudates. Moist mucous membranes. NECK: supple without lymphadenopathy LUNGS: CTA b/l, no crackles or wheezes HEART: Regular rate and rhythm, normal S1 and S2 without murmur ABDOMEN: Soft, nontender to palpation, normoactive bowel sounds MUSCULOSKELETAL: Tenderness to palpation of knee joints, R > L EXTREMITIES: warm, well-perfused. No peripheral edema. NEUROLOGICAL: Cranial nerves II-XII grossly intact. Normal speech. SKIN: Warm, dry, no rashes or lesions noted Laboratory Results - last 24 hr 08/22/18 08/24/18 08/24/18 18:00 07:41 07:41 WBC 4.7 RBC 3.79 Hgb 11.8 Hct 34.2 MCV 90.3 MCH 31.3 MCHC 34.6 RDW 14.4 Plt Count 145 MPV 8.9 Sodium 143 Potassium 4.2 Chloride 107 Carbon Dioxide 29 Anion Gap 6 L BUN 9 Creatinine 0.8 Creat Clearance w eGFR > 60 Random Glucose 89 Calcium 8.4 L Phosphorus 4.1 Magnesium 1.9 Rheumatoid Arth Biomark 11.5 Active Medications Generic Name Dose Route Start Last Admin Trade Name Freq PRN Reason Stop Dose Admin Acetaminophen 650 mg 08/22/18 17:01 Tylenol - PO Q4H PRN PAIN LEVEL 1-5 Amitriptyline HCl 25 mg 08/23/18 22:00 08/23/18 22:11 Elavil - PO 25 mg HS OLIVER Administration Calcium Carbonate 650 mg 08/23/18 13:30 08/24/18 10:35 Calcium Carbonate - PO 650 mg BID OLIVER Administration Cholecalciferol 1,000 unit 08/24/18 10:00 08/24/18 10:35 Vitamin D3 - PO 1,000 unit DAILY OLIVER Administration Docusate Sodium 100 mg 08/23/18 13:15 08/24/18 10:35 Colace - PO Not Given BID OLIVER Enoxaparin Sodium 40 mg 08/23/18 10:45 08/24/18 10:34 Lovenox - SQ 40 mg DAILY [facility]IVER Administration Lorazepam 0.5 mg 08/23/18 20:17 08/23/18 22:11 Ativan - PO 0.5 mg Q8H PRN Administration ANXIETY Melatonin 5 mg 08/23/18 18:11 Melatonin PO HS PRN INSOMNIA Oxycodone HCl 5 mg 08/22/18 17:00 08/24/18 11:54 Roxicodone - PO 5 mg Q6H PRN Administration PAIN LEVEL 6-10 ASSESSMENT/PLAN: 58 year old woman with a history of anxiety, hyperlipidemia, and chronic pain syndrome who presented to the ED after a fall. Mechanical Fall -Physical Therapy eval -Pt will require SNF placement for short term rehab -Stable for dc pending placement Rhabdomyolysis - resolved -CK initially > 1000, improving, now 245 -LR @ 125 cc/hr -Monitor renal function and urinary output SIRS - resolved -tachycardic with 100.4 temp on admission - resolved -Flu negative -Abdominal CT negative -Pt has not yet given urine sample, refusing straight cath Hyperlipidemia -Hold home crestor with concern for rhabdo Anxiety -Elavil 25 mg PO HS -Ativan 0.5 mg PO TID PRN Complex regional pain syndrome -Pt states Neurontin/lyrica/cymbalta did not help her pain and that she is no longer taking them -Oxycodone 5 mg PO Q6 and Tylenol 650 mg PO Q4 as we do not have Hydrocodone DVT Prophylaxis -Lovenox 40 mg SQ Daily FEN -Fluids: none -Electrolytes: No electrolyte abnormalities, BMP in AM -Nutrition: Cholesterol Controlled diet Disposition Med/Surg, dc pending SNF placement Visit type - Emergency Visit Emergency Visit: Yes ED Registration Date: 08/22/18 Care time: The patient presented to the Emergency Department on the above date and was hospitalized for further evaluation of their emergent condition. - New Patient This patient is new to me today: No - Critical Care Critical Care patient: No
[2018-08-24] MEDS ORDERED: ONDANSETRON 4 MG/2 ML VIAL IVPUSH PRN (17:32)
[2018-08-24] MEDS: LORazepam 0.5 MG TABLET PO PRN (17:50)
[2018-08-24] MEDS ORDERED: PT OWN MED DRAWER 7, Y5N ONE (19:24)
[2018-08-24 19:28] LABS: URINE APPEARANCE CLEAR; URINE BILIRUBIN NEGATIVE (<2.0 mg/dL); URINE COLOR COLORLESS; URINE GLUCOSE (UA) NEGATIVE (NEGATIVE); URINE KETONE NEGATIVE (NEGATIVE); URINE LEUK ESTERASE NEGATIVE (NEGATIVE); URINE NITRITE NEGATIVE (NEGATIVE); URINE PROTEIN NEGATIVE (NEGATIVE); URINE UROBILINOGEN NEGATIVE mg/dL (0.2-1.0)
[2018-08-24] MEDS: MELATONIN 5 MG TABLETS PO PRN (21:37)
[2018-08-24] MEDS: AMITRIPTYLINE HCL 25 MG TABLET (FP) PO SCH (21:37)
[2018-08-25] MEDS: oxyCODONE HCL 5 MG TABLET PO PRN ×2 (06:33→15:59)
[2018-08-25] MEDS: CALCIUM CARBONATE 650 MG TABLET PO SCH (10:37)
[2018-08-25] MEDS: ENOXAPARIN NA (PORCINE) 40 MG/0.4 ML DISP.SYRIN SQ SCH (10:37)
[2018-08-25] MEDS: CHOLECALCIFEROL (VITAMIN D3) 1,000 UNIT TABLET (FP) PO SCH (10:37)
[2018-08-25] MEDS: DOCUSATE SODIUM 100 MG CAPSULE (FP) PO SCH (10:37)
[2018-08-25] MEDS: LORazepam 0.5 MG TABLET PO PRN (13:54)
[2018-08-25 15:20] VITALS: BP 118/75; PULSE 76; TEMP 98.3
--- NOTE | 2018-08-25 15:28 | DS ---
Physical Exam: SUBJECTIVE: Patient seen and examined this AM. She still complains of pain all over and some swelling in her legs and feet. OBJECTIVE: Vital Signs Period Temp Pulse Resp BP Sys/Mckeon Pulse Ox Last 24 Hr 98.2 F-98.5 F 71-82 18-20 113-140/61-77 97 PHYSICAL EXAM GENERAL: A&O, anxious EYES: PERRL, no scleral icterus EARS, NOSE, THROAT: oropharynx clear without exudates. Moist mucous membranes. NECK: supple without lymphadenopathy LUNGS: CTA b/l, no crackles or wheezes HEART: Regular rate and rhythm, normal S1 and S2 without murmur ABDOMEN: Soft, nontender to palpation, normoactive bowel sounds MUSCULOSKELETAL: Tenderness to palpation of knee joints, R > L EXTREMITIES: warm, well-perfused. No peripheral edema. NEUROLOGICAL: Cranial nerves II-XII grossly intact. Normal speech. SKIN: Warm, dry, no rashes or lesions noted LABS Laboratory Results - last 24 hr 08/21/18 08/22/18 08/24/18 22:38 18:00 18:53 Urine Color Colorless Urine Appearance Clear Urine pH 7.0 D Ur Specific [place] 1.003 L Urine Protein Negative Urine Glucose (UA) Negative Urine Ketones Negative Urine Blood Negative Urine Nitrite Negative Urine Bilirubin Negative Urine Urobilinogen Negative Ur Leukocyte Esterase Negative PETTY Screen Negative HCV Quantitation Hcv not detected HCV RNA log copies/mL [facility] HOSPITAL COURSE: Date of Admission:08/22/18 Date of Discharge: 08/25/18 HPI On Admission: 58yo F with history of anxiety, HLD, and chronic pain syndrome who presents today s/p fall. Pt is a poor historian, continually needs redirection and is extremely anxious. From what can be gathered, the neighbour heard a loud noise in her apartment and called an ambulance. Pt reports that she slipped out of bed and did not lose consciousness. She reports this was around in 1:30pm today , however she continually changes the time it happened. Pt reports crawling on the floor and being unable to get up. Ambulance arrive and brought patient to the ER for further workup. 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 Pt was previously evaluated by psychiatry and neurology for her chronic pain syndrome with likely psychiatric component. No acute changes from her baseline at this point. Denies dizziness, lightheadedness, shortness of breath, f/c/n/v/diarrhea/ constipation. Hospital Course: Imaging studies were negative for acute fracture or bleeding. Pt complaining of pain and burning all over with muscle tightness. PETTY, RF, HCV were all negative. Of note she did possibly have rhabdo on admission with CK elevated > 1000, with rapid resolution of CK down to 200s overnight. Her pain was somewhat controlled on her home medications when she was willing to take them. Her anxiety was controlled with her home ativan. She was seen by physical therapy who recommended that she would need short term rehab placement. Minutes to complete discharge: 35 Discharge Summary Reason For Visit: SYNCOPE Current Active Problems Fall (Acute) Rhabdomyolysis (Acute) Syncope (Acute) Condition: Stable - Instructions Diet, Activity, Other Instructions: You were admitted for chronic pain and muscle tightness in addition to a fall. Imaging was performed which did not reveal any fractures or concerning findings. Your pain is likely chronic and should be followed by your primary care physician and a setter machine or neurologist. At this time you are medically safe for discharge with close follow up by your primary care physician. You had some difficulty walking and being steady on your feet even with assistance so it was recommended you go to a short term rehab facility. You should continue your home medications as they are prescribed. You should follow up with your primary care physician within one week. Your primary care physician may choose to refer you to a setter machine/ neurologist/orthopedic surgeon If you have any concerning symptoms at home or continued pain you should follow up with your primary care physician. Referrals: Mauro Stahl MD [Staff Physician] - Gregg Osman DO [Staff Physician] - Ghassan Kline MD [Primary Care Provider] - Disposition: CARE HOME FACILITY - Home Medications Comprehensive Discharge Medication List: Ambulatory Orders Cholecalciferol (Vitamin D3) [Vitamin D3 -] 1,000 unit PO DAILY 07/09/17 LORazepam [Ativan] 0.5 mg PO TID 07/09/17 Amitriptyline HCl [Elavil -] 25 mg PO HS #30 tablet 01/18/18 Rosuvastatin [Crestor -] 5 mg PO HS tablet 01/18/18 Calcium Carbonate [Calcium] 600 mg PO DAILY 08/22/18 Hydrocodone/Acetaminophen [[place] 5-325 Tablet] 2 each PO TID PRN MDD 6 08/22/18 This patient is new to me today: No Emergency Visit: Yes ED Registration Date: 08/22/18 Care time: The patient presented to the Emergency Department on the above date and was hospitalized for further evaluation of their emergent condition. Critical Care patient: No - Discharge Referral Referred to [facility] Med P.C.: No
[2018-08-25] MEDS ORDERED: BACITRACIN 15 GM TUBE TOPICAL OINTMENT TP SCH (15:30)
--- NOTE | 2018-08-25 15:46 | PN ---
Teaching Attending Note Name of Resident: Selvin Noel ATTENDING PHYSICIAN STATEMENT I saw and evaluated the patient. I reviewed the resident's note and discussed the case with the resident. I agree with the resident's findings and plan as documented. SUBJECTIVE: Feels well. No complaints. OBJECTIVE: Afebrile, Hemodynamically Stable. Last Vital Signs Temp Pulse Resp BP Pulse Ox 98.3 F 76 21 H 118/75 97 08/25/18 14:00 08/25/18 14:00 08/25/18 14:00 08/25/18 14:00 08/24/18 21:00 HEENT - Atraumatic, Normocephalic Heart - S1, S2, RRR Lungs - clear to auscultation, no crackles/wheeze. Abdomen - soft, non-tender. Bowel Sounds normal. Extremities - no calf tenderness. Laboratory Results - last 24 hr 08/21/18 08/22/18 08/24/18 22:38 18:00 18:53 Urine Color Colorless Urine Appearance Clear Urine pH 7.0 D Ur Specific [employer] 1.003 L Urine Protein Negative Urine Glucose (UA) Negative Urine Ketones Negative Urine Blood Negative Urine Nitrite Negative Urine Bilirubin Negative Urine Urobilinogen Negative Ur Leukocyte Esterase Negative PETTY Screen Negative HCV Quantitation Hcv not detected HCV RNA log copies/mL TNP Current Medications Generic Name Dose Route Start Last Admin Trade Name Monsterq PRN Reason Stop Dose Admin Acetaminophen 650 mg 08/22/18 17:01 Tylenol - PO Q4H PRN PAIN LEVEL 1-5 Amitriptyline HCl 25 mg 08/23/18 22:00 08/24/18 21:37 Elavil - PO 25 mg HS OLIVER Administration Bacitracin 1 applic 08/25/18 15:30 Bacitracin - TP DAILY OLIVER Calcium Carbonate 650 mg 08/23/18 13:30 08/25/18 10:37 Calcium Carbonate - PO 650 mg BID OLIVER Administration Cholecalciferol 1,000 unit 08/24/18 10:00 08/25/18 10:37 Vitamin D3 - PO 1,000 unit DAILY OLIVER Administration Docusate Sodium 100 mg 08/23/18 13:15 08/25/18 10:37 Colace - PO 100 mg BID OLIVER Administration Enoxaparin Sodium 40 mg 08/23/18 10:45 08/25/18 10:37 Lovenox - SQ 40 mg DAILY OLIVER Administration Lorazepam 0.5 mg 08/23/18 20:17 08/25/18 13:54 Ativan - PO 0.5 mg Q8H PRN Administration ANXIETY Melatonin 5 mg 08/23/18 18:11 08/24/18 21:37 Melatonin PO 5 mg HS PRN Administration INSOMNIA Ondansetron HCl 4 mg 08/24/18 17:32 08/24/18 18:06 Zofran Injection IVPUSH 4 mg Q8H PRN Administration NAUSEA Oxycodone HCl 5 mg 08/22/18 17:00 08/25/18 06:33 Roxicodone - PO 5 mg Q6H PRN Administration PAIN LEVEL 6-10 ASSESSMENT AND PLAN: 58 year old female with history of anxiety, hyperlipidemia, and chronic pain syndrome who presented to the ED after a fall. 1. Acute Rhabdomyolysis - resolved with IV hydration. 2. Myalgias and weakness resulting in fall, possibly sec to Rhabdo ESR 52 PETTY/RF neg Because of reported proximal weakness and mild elevation in ESR, will refeer to Rheumatology as out-patient. 3. SIRS (temp 100.4, tachycardia), etiology unclear, resolved. CXR - no infiltrate. CT A/P neg. UA neg. No infective symptoms. 4. Hyperlipidemia - can resume Statin every other day on discharge with repeat Lipid panel and CPK in 3-4 weeks 5. Anxiety - Continue Elavil, Ativan as needed. 6. Complex regional pain syndrome of RLE/chronic pain syndrome - Continue Elavil , oxycodone as needed. DVT Px - Lovenox SQ Medically Stable for discharge to Rehab
== END 2018-08-25 18:34 | DRG 558 ==
LOC: JER 14:21 → JERBED 21:45 → OBSVTOIN 08-22 07:26 → J6S 08-22 13:51
PROVIDERS: ADMIT Internal Medicine
DX: M62.82 Rhabdomyolysis (principal); R65.10 Systemic inflammatory response syndrome (SIRS) of non-infectious origin without acute organ dysfunction; J98.11 Atelectasis; G90.521 Complex regional pain syndrome I of right lower limb; F41.9 Anxiety disorder, unspecified; M79.10 Myalgia, unspecified site; E78.5 Hyperlipidemia, unspecified; R55 Syncope and collapse
CPT/HCPCS: 36415; 70450-TC; 71045-TC-FY; 72125-TC; 74176-TC; 80048; 80053; 81003; 82550; 82553; 82607; 83735; 84100; 84443; 84484; 85025; 85027; 85651; 86038; 86140; 86431; 87040; 87389; 87522; 87804; 93005; 93010; 97116-GP; 97161-GP; 99285-25; G0378; J0131; J7030

== ENCOUNTER 2018-09-12 12:52 | Observation (INO) | payer OTHER ==
[2018-09-12] MEDS ORDERED: ACETAMINOPHEN 325 MG TABLET (FP) PO ONE (14:12)
[2018-09-12] MEDS ORDERED: KETOROLAC TROMETHAMINE 15 MG/ML VIAL IVPUSH ONE (14:12)
[2018-09-12] MEDS ORDERED: LORazepam 1 MG TABLET PO ONE (14:13)
--- NOTE | 2018-09-12 14:13 | PDOC ---
History of Present Illness - History of Present Illness Initial Comments: 09/12/18 16:11 The patient is a 58 year old female, with a significant past medical history of anxiety, hyperlipidemia, and chronic pain syndrome, who presents to the emergency department with 1 day of chest pain. The patient states the chest pain began yesterday while at rest described as a tightness in her muscles and burning up to her throat/neck. The patient states the pain is similar to her chronic pain in her abdomen, back, groin and lower extremities. The patient states she called her GRADUATE ENGINEER Michael Clemons with the Dr Macedo group who advised her to come to the ED for evaluation. The patient states she takes [place] daily for her chronic pain. The patient also reports taking Ativan this morning for the pain with mild relief. The patient endorses 2 days of dysuria, but no hematuria , urgency or frequency. Of note, the patient had a recent CT abdomen/pelvis on which was unremarkable. Denies fever, chills, SOB, palpitation, dizziness, weakness, N, V, D, bowel problems, leg swelling, No sick contacts or travel. No new changes in medications. Past Medical History: Anxiety, hyperlipidemia, and chronic pain syndrome Social history: Lives with family. No smoking. No alcohol. No illicit drugs. Surgical history: Hip replacement PMD: Dr Billy Colby ROS: Constitutional: no fevers or chills. HEENT: no headache or dizziness. No congestion. No visual/hearing disturbances. CVS: (+) Chest pain. No syncope. Resp: no sob. No cough. Gastrointestinal: (+) Abdominal pain. No nausea or vomiting. Genitourinary: (+) Dysuria. No hematuria. MUSCULOSKELETAL: (+) Chronic neck, back and groin pain. SKIN: no redness or skin changes, no discharge, no rash. No wounds. Hematologic: no easy bruising/bleeding. NEUROLOGIC: No headache, dizziness, LOC or altered mental status. No weakness, numbness or tingling. Allergic/Immunologic: no allergies All other systems reviewed and negative, or as documented in HPI. PE: General: Well appearing, awake and alert, NAD. HEENT: NCAT, PERRL, EOMI, clear conjunctiva, anicteric, moist mucus membranes, clear oropharynx, no oral lesions.. Neck: neck supple, FROM Resp: CTAB, normal and even respirations, no respiratory distress CVS: RRR, no murmurs, 2+ peripheral pulses throughout, no peripheral edema Abdomen: soft, NTND, no peritoneal signs. Obese, but nondistended, no palp masses or hernia defects. Back: nontender, normal inspection and ROM MSK: no edema, TA x4, ROM intact. No clubbing or cyanosis. normal bulk and tone. Extremities: no calf tenderness Neuro: alert, oriented appropriately; no focal neurologic deficits, ambulatory, gait stable. Skin: warm and well perfused, cap refill <2 sec, normal color <Duane Young - Last Filed: 09/12/18 17:17> - General History Source: Patient Exam Limitations: No Limitations <Nereyda Domingo - Last Filed: 09/12/18 22:23> - General Chief Complaint: Pain, Acute Stated Complaint: STOMACH PAIN/TIGHNESS IN CHEST Time Seen by Provider: 09/12/18 13:59 Past History <Duane Young - Last Filed: 09/12/18 17:17> - Past Medical History Anemia: No Asthma: No Cancer: No Cardiac Disorders: No CVA: No COPD: No CHF: No DVT: No Dementia: No Diabetes: No GI Disorders: No Disorders: No HTN: No Hypercholesterolemia: Yes Liver Disease: No Psychiatric Problems: Yes (ANXIETY) Seizures: No Thyroid Disease: No - Surgical History Abdominal Surgery: No Appendectomy: No Cardiac Surgery: No Cholecystectomy: No Lung Surgery: No Neurologic Surgery: No Orthopedic Surgery: Yes (Left hip replacement surgery) - Suicide/Smoking/Psychosocial Hx Smoking History: Never smoked Have you smoked in the past 12 months: No Information on smoking cessation initiated: No Hx Alcohol Use: No Drug/Substance Use Hx: No Substance Use Type: None Hx Substance Use Treatment: No <Nereyda Domingo - Last Filed: 09/12/18 22:23> - Past Medical History Allergies/Adverse Reactions: Allergies Allergy/AdvReac Type Severity Reaction Status Date / Time No Known Allergies Allergy Verified 09/12/18 13:05 Home Medications: Ambulatory Orders Cholecalciferol (Vitamin D3) [Vitamin D3 -] 1,000 unit PO DAILY 07/09/17 LORazepam [Ativan] 0.5 mg PO TID 07/09/17 Amitriptyline HCl [Elavil -] 25 mg PO HS #30 tablet 01/18/18 Calcium Carbonate [Calcium] 600 mg PO DAILY 08/22/18 Hydrocodone/Acetaminophen [[place] 5-325 Tablet] 2 each PO TID PRN MDD 6 08/22/18 Bacitracin - [Bacitracin Topical Ointment -] 1 applic TP DAILY tube 08/25/18 Rosuvastatin [Crestor -] 5 mg PO Q2D #0 tablet 08/25/18 *Physical Exam - Vital Signs Last Vital Signs Temp Pulse Resp BP Pulse Ox 98.1 F 107 H 16 113/83 100 09/12/18 13:03 09/12/18 13:03 09/12/18 13:03 09/12/18 13:03 09/12/18 13:03 <Duane Young - Last Filed: 09/12/18 17:17> - Vital Signs Last Vital Signs Temp Pulse Resp BP Pulse Ox 98.1 F 107 H 16 113/83 100 09/12/18 13:03 09/12/18 13:03 09/12/18 13:03 09/12/18 13:03 09/12/18 13:03 <Nereyda Domingo - Last Filed: 09/12/18 22:23> Moderate Sedation - Procedure Monitoring Vital Signs: Procedure Monitoring Vital Signs Temperature 98.1 F 09/12/18 13:03 Pulse Rate 107 H 09/12/18 13:03 Respiratory Rate 16 09/12/18 13:03 Blood Pressure 113/83 09/12/18 13:03 O2 Sat by Pulse Oximetry (%) 100 09/12/18 13:03 <Duane Young - Last Filed: 09/12/18 17:17> - Procedure Monitoring Vital Signs: Procedure Monitoring Vital Signs Temperature 98.1 F 09/12/18 13:03 Pulse Rate 107 H 09/12/18 13:03 Respiratory Rate 16 09/12/18 13:03 Blood Pressure 113/83 09/12/18 13:03 O2 Sat by Pulse Oximetry (%) 100 09/12/18 13:03 <Nereyda Domingo - Last Filed: 09/12/18 22:23> Heart Score/ECG Review - History History: Slightly suspicious - Electrocardiogram EKG: Normal - Age Age: 45-65 - Risk Factors Risk Factors Heart Score: Yes Hx Hypercholesterolemia Based on the list above the patient has:: 1-2 risk factors - Troponin Troponin: </= normal limit - Score Heart Score - Total: 2 - ECG Impressions Normal ECG: Yes Comment:: 09/12/18 17:52 EKG sinus tachycardia, no interval abnormalities, narrow QRS, ST and T wave segments and morphology normal. Nonspecific T wave abnormalities <Nereyda Domingo - Last Filed: 09/12/18 22:23> ED Treatment Course - LABORATORY CBC & Chemistry Diagram: 09/12/18 15:45 09/12/18 15:45 - ADDITIONAL ORDERS Additional order review: Laboratory Results 09/12/18 15:45 Lactic Acid 1.2 09/12/18 15:45 RBC 4.26 MCV 91.0 MCHC 34.6 RDW 14.7 MPV 8.5 Neutrophils % 48.0 Lymphocytes % 44.2 H Monocytes % 6.5 Eosinophils % 0.8 Basophils % 0.5 - Medications Given in the ED: ED Medications Discontinued Medications Generic Name Dose Route Start Last Admin Trade Name Chanel PRN Reason Stop Dose Admin Acetaminophen 975 mg 09/12/18 14:12 09/12/18 15:49 Tylenol - PO 09/12/18 14:13 975 mg ONCE ONE Administration Ketorolac Tromethamine 15 mg 09/12/18 14:12 09/12/18 15:49 Toradol Injection - IVPUSH 09/12/18 14:13 15 mg ONCE ONE Administration Lorazepam 1 mg 09/12/18 14:13 09/12/18 15:49 Ativan - PO 09/12/18 14:14 1 mg ONCE ONE Administration <Duane Young - Last Filed: 09/12/18 17:17> - LABORATORY CBC & Chemistry Diagram: 09/12/18 15:45 09/12/18 15:45 - RADIOLOGY Radiology Studies Ordered: Category Date Time Status CHEST PA & LAT [RAD] Stat Radiology 09/12/18 13:21 Ordered <Nereyda Domingo - Last Filed: 09/12/18 22:23> Medical Decision Making - Medical Decision Making 09/12/18 17:50 I, Nereyda Domingo MD, attest that this document has been prepared under my direction and personally reviewed by me in its entirety. I further attest, that it accurately reflects all work, treatment, procedures and medical decision -making performed by me. See HPI for details DDx. ACS, angina, arrhythmia, electrolyte/metabolic derangements, infection, anxiety, chronic pain exacerbation, myalgias. Vital signs reviewed, normotensive, but no fever, mild tachy likely 2/2 pain. Prior notes reviewed, including admissions, discharges and consultations. laboratory results and imaging reviewed, basic labs and lytes wnl UA pending CXR_no acute pathology, no effusion or consolidation, normal cardiac silhouette Cardiac panel_trop neg. trend serial EKG/trop. EKG sinus tachycardia, no interval abnormalities, narrow QRS, ST and T wave segments and morphology normal. Nonspecific T wave abnormalities ED course: given analgesia, toradol/tylenol, IVF and ativan (which she takes for anxiety as well) doubt PE or dissection. doubt angina/chest pain. most of pain is diffuse/all over body, chronic in nature and reproducible.. admit obs for chest pain eval, pain control and SW eval for placement - spoke with ALETA Dockery - with admission, can arrange for short term rehab then transition to [facility], just not through the ED. pt unable to care for herself, so safety concerns, especially with last admission and rhabdo/syncope, does have some risk factors/fall risk - also confirmed, with Dr Macedo, never saw patient, nor has pt made appts to see. so will admit to hospitalist service. - pt to be admitted observation for pain, chest pain, r/o ACS and medical management of acute on chronic pain and safety concerns/SW eval for placement. 09/12/18 17:52 09/12/18 17:55 09/12/18 18:59 09/12/18 22:22 09/12/18 22:23 <Nereyda Domingo - Last Filed: 09/12/18 22:23> *DC/Admit/Observation/Transfer - Attestations Scribe Attestion: 09/12/18 16:13 Documentation prepared by Duane Young, acting as director medical economics for Nereyda Domingo MD. <Duane Young - Last Filed: 09/12/18 17:17> - Discharge Dispostion Decision to Admit order: Yes Decision to Admit order Date/Time: 09/12/18 17:50 Decision to Admit Order Category Date Time Status Decision to Admit to Hospital Routine Admission 09/12/18 17:45 Active <Nereyda Domingo - Last Filed: 09/12/18 22:23> Diagnosis at time of Disposition: Total body pain Chronic pain Qualifiers: Chronic pain type: other chronic pain Qualified Code(s): G89.29 - Other chronic pain Chest pain Qualifiers: Chest pain type: unspecified Qualified Code(s): R07.9 - Chest pain, unspecified - Discharge Dispostion Condition at time of disposition: Stable
[2018-09-12] MEDS ORDERED: ACETAMINOPHEN 325 MG TABLET (FP) ONE ×2 (15:16→23:40)
[2018-09-12] MEDS ORDERED: KETOROLAC TROMETHAMINE 15 MG/ML VIAL ONE (15:16)
[2018-09-12] MEDS ORDERED: LORazepam 0.5 MG TABLET ONE (15:18)
[2018-09-12 15:53] LABS: BASO % 0.5 % (0-2.0); EOS % 0.8 % (0-4.5); HEMATOCRIT 38.8 % (32.4-45.2); HEMOGLOBIN 13.4 GM/dL (10.7-15.3); LYMPH % 44.2 % (8-40); MCH 31.5 pg (25.7-33.7); MCHC 34.6 g/dl (32.0-36.0); MEAN PLT VOLUME 8.5 fl (7.5-11.1); MONO % 6.5 % (3.8-10.2); PLATELET COUNT 193 K/MM3 (134-434); RBC 4.26 M/mm3 (3.60-5.2); RDW 14.7 % (11.6-15.6); WHITE BLOOD COUNT 6.1 K/mm3 (4.0-10.0)
[2018-09-12] MEDS ORDERED: SODIUM CHLORIDE 0.9% 500 ML INFUS.BAG IV ONE (16:06)
[2018-09-12 16:26] LABS: ALBUMIN 3.6 g/dl (3.4-5.0); ALK PHOS 96 U/L (45-117); ANION GAP 6 MMOL/L (8-16); BILIRUBIN,TOTAL 0.3 mg/dL (0.2-1); BLOOD UREA NITROGEN 14 mg/dL (7-18); CALCIUM 8.6 mg/dL (8.5-10.1); CHLORIDE 105 mmol/L (98-107); CO2 29 mmol/L (21-32); CREATININE 0.7 mg/dL (0.55-1.3); GLUCOSE,RANDOM 99 mg/dL (74-106); POTASSIUM 4.4 mmol/L (3.5-5.1); SGOT/AST 13 U/L (15-37); SGPT/ALT 31 U/L (13-61); SODIUM 139 mmol/L (136-145); TOT PROT 6.7 g/dl (6.4-8.2)
[2018-09-12 17:46] LABS: URINE APPEARANCE CLEAR; URINE BILIRUBIN NEGATIVE (<2.0 mg/dL); URINE COLOR LTYELLOW; URINE GLUCOSE (UA) NEGATIVE (NEGATIVE); URINE KETONE NEGATIVE (NEGATIVE); URINE LEUK ESTERASE 2+ (NEGATIVE); URINE NITRITE NEGATIVE (NEGATIVE); URINE PROTEIN NEGATIVE (NEGATIVE); URINE UROBILINOGEN NEGATIVE mg/dL (0.2-1.0)
[2018-09-12 17:54] LABS: EPI CELLS RARE /HPF (FEW)
--- NOTE | 2018-09-12 18:52 | HP ---
CHIEF COMPLAINT: pain PCP: HISTORY OF PRESENT ILLNESS: Patient is a 58 y/o female with a history of anxiety, HLD, and chronic pain who presents with pain. She states she has had the pain for month it is diffuse. The pain is constant and everything makes it worse and nothing makes it better. She rates the pain as 10/10. She sees a pain specialtist but it has not been helping. She states she gets diaphoretic with the pain, she feels dizzy, and her eyes are blurry. She denies fever or chills. She states she also has pain in her abdomen and she thinks the right side is jutting out more then the left side. She sometimes is constipated. She typically lives alone but does not feel comfortable living alone anymore with her pain. she owuld like ot live in a facility. Patient denies recent sick contacts or any travel. ER course was notable for: (1) tylenol (2) (3) Recent Travel: PAST MEDICAL HISTORY: anxiety, HLD, and chronic pain PAST SURGICAL HISTORY: Social History: Smoking: denies Alcohol: denies Drugs: Family History: Allergies No Known Allergies Allergy (Verified 09/12/18 13:05) HOME MEDICATIONS: Home Medications Medication Instructions Recorded Cholecalciferol (Vitamin D3) 1,000 unit PO DAILY 07/09/17 [Vitamin D3 -] LORazepam [Ativan] 0.5 mg PO TID 07/09/17 Amitriptyline HCl [Elavil -] 25 mg PO HS #30 tablet 01/18/18 Calcium Carbonate [Calcium] 600 mg PO DAILY 08/22/18 Hydrocodone/Acetaminophen [[place] 2 each PO TID PRN MDD 6 08/22/18 5-325 Tablet] Bacitracin - [Bacitracin Topical 1 applic TP DAILY tube 08/25/18 Ointment -] Rosuvastatin [Crestor -] 5 mg PO Q2D #0 tablet 08/25/18 REVIEW OF SYSTEMS CONSTITUTIONAL: Absent: fever, chills, diaphoresis, generalized weakness, malaise, loss of appetite, weight change HEENT: Absent: rhinorrhea, nasal congestion, throat pain, throat swelling, difficulty swallowing, mouth swelling, ear pain, eye pain, visual changes CARDIOVASCULAR: chest pain, palpitations, irregular heart rate, Absent: syncope, lightheadedness, peripheral edema RESPIRATORY: Absent: cough, shortness of breath, dyspnea with exertion, orthopnea, wheezing, stridor, hemoptysis GASTROINTESTINAL: Absent: abdominal pain, abdominal distension, nausea, vomiting, diarrhea, constipation, melena, hematochezia GENITOURINARY: Absent: dysuria, frequency, urgency, hesitancy, hematuria, flank pain, genital pain MUSCULOSKELETAL: Absent: myalgia, arthralgia, joint swelling, back pain, neck pain SKIN: Absent: rash, itching, pallor HEMATOLOGIC/IMMUNOLOGIC: Absent: easy bleeding, easy bruising, lymphadenopathy, frequent infections ENDOCRINE: Absent: unexplained weight gain, unexplained weight loss, heat intolerance, cold intolerance NEUROLOGIC: Absent: headache, focal weakness or paresthesias, dizziness, unsteady gait, seizure, mental status changes, bladder or bowel incontinence PSYCHIATRIC: Absent: anxiety, depression, suicidal or homicidal ideation, hallucinations. PHYSICAL EXAMINATION Vital Signs Temperature 98.1 F 09/12/18 13:03 Pulse Rate 107 H 09/12/18 13:03 Respiratory Rate 16 09/12/18 13:03 Blood Pressure 113/83 09/12/18 13:03 O2 Sat by Pulse Oximetry (%) 100 09/12/18 13:03 GENERAL: Awake, alert, and fully oriented, in no acute distress. HEAD: Normal with no signs of trauma. EYES: Pupils equal, round and reactive to light, extraocular movements intact, NECK: Normal range of motion, supple without lymphadenopathy, JVD, or masses. LUNGS: Breath sounds equal, clear to auscultation bilaterally. HEART: Regular rate and rhythm, normal S1 and S2 without murmur, rub or gallop. ABDOMEN: Soft, nontender, not distended, normoactive bowel sounds, MUSCULOSKELETAL: Normal range of motion at all joints.gait evaluated and normal , 5/5 strength in upper and lower extremities, tenderness to diffuse palpation, ROM of neck LOWER EXTREMITIES: 2+ pulses, warm, well-perfused. No calf tenderness. No peripheral edema. NEUROLOGICAL: Cranial nerves II-XII intact. Normal speech. Normal gait. SKIN: Warm, dry, normal turgor, no rashes or lesions noted, normal capillary refill. CBCD WBC 6.1 K/mm3 (4.0-10.0) 09/12/18 15:45 RBC 4.26 M/mm3 (3.60-5.2) 09/12/18 15:45 Hgb 13.4 GM/dL (10.7-15.3) 09/12/18 15:45 Hct 38.8 % (32.4-45.2) 09/12/18 15:45 MCV 91.0 fl (80-96) 09/12/18 15:45 MCHC 34.6 g/dl (32.0-36.0) 09/12/18 15:45 RDW 14.7 % (11.6-15.6) 09/12/18 15:45 Plt Count 193 K/MM3 (134-434) D 09/12/18 15:45 MPV 8.5 fl (7.5-11.1) 09/12/18 15:45 CMP Sodium 139 mmol/L (136-145) 09/12/18 15:45 Potassium 4.4 mmol/L (3.5-5.1) 09/12/18 15:45 Chloride 105 mmol/L (98-107) 09/12/18 15:45 Carbon Dioxide 29 mmol/L (21-32) 09/12/18 15:45 Anion Gap 6 MMOL/L (8-16) L 09/12/18 15:45 BUN 14 mg/dL (7-18) 09/12/18 15:45 Creatinine 0.7 mg/dL (0.55-1.3) 09/12/18 15:45 Creat Clearance w eGFR > 60 (>60) 09/12/18 15:45 Random Glucose 99 mg/dL (74-106) 09/12/18 15:45 Calcium 8.6 mg/dL (8.5-10.1) 09/12/18 15:45 Total Bilirubin 0.3 mg/dL (0.2-1) 09/12/18 15:45 AST 13 U/L (15-37) L 09/12/18 15:45 ALT 31 U/L (13-61) 09/12/18 15:45 Alkaline Phosphatase 96 U/L (45-117) 09/12/18 15:45 Total Protein 6.7 g/dl (6.4-8.2) 09/12/18 15:45 Albumin 3.6 g/dl (3.4-5.0) 09/12/18 15:45 CARDIAC ENZYMES Troponin I < 0.02 ng/ml (0.00-0.05) 09/12/18 15:45 ASSESSMENT/PLAN: Patient is a 58 y/o female with a history of anxiety, HLD, and chronic pain who presents with pain. #R/O ACS - troponin > 0.02, follow up serial troponins - f/u excercise stress test in the morning, patient able to ambulate - cardio consult Dr. Christianson - aspirin 325 mg - ekg without changes # pain management - percocet 5 mg TID prn ( home dose) - conitnue amitriptyline - diffuse pain - consider contacting pain management #HLD - continue rosuvastatin FEN - NPO after midnight for stress test in morning - NS @ 42 - f/u morning labs Dispo: f/u with social work for placement * home medications not reconciled Visit type - Emergency Visit Emergency Visit: Yes ED Registration Date: 09/12/18 Care time: The patient presented to the Emergency Department on the above date and was hospitalized for further evaluation of their emergent condition. - New Patient This patient is new to me today: Yes Date on this admission: 09/12/18 - Critical Care Critical Care patient: No
[2018-09-12] MEDS ORDERED: ASPIRIN 325 MG TABLET PO ONE (19:01)
[2018-09-12] MEDS ORDERED: ASPIRIN 81 MG CHEWABLE TABLETS ONE (19:17)
[2018-09-12] MEDS: oxyCODONE HCL 5 MG TABLET PO PRN (19:26)
[2018-09-12] MEDS ORDERED: oxyCODONE HCL 5 MG TABLET ONE (19:27)
[2018-09-12] MEDS ORDERED: SODIUM CHLORIDE 1,000 ML IV SCH (19:30)
[2018-09-12] MEDS ORDERED: POLYETHYLENE GLYCOL 3350 119 GM BTL PO ONE (21:15)
--- NOTE | 2018-09-12 21:15 | PN ---
Teaching Attending Note Name of Resident: Lucila Ewing ATTENDING PHYSICIAN STATEMENT I saw and evaluated the patient. I reviewed the resident's note and discussed the case with the resident. I agree with the resident's findings and plan as documented. SUBJECTIVE: 58 year old female with Anxiety, HLD, Chronic Pain Syndrome ( chronically on [place]), s/p L THR, presents with burning CP radiating up to her neck and across to her back with abdominal distention and sweats. Denies palpitations/SOB/cough/sputum/nausea/vomiting/diarrhea/melena/hematochezia. No fever/chills. No dysuria/hematuria. Complains of "musculoskeletal tightness" in her legs, hips, back, neck, head, requesting evaluation by an orthopedic surgeon. Recent fall 2 weeks ago with subsequent hospitalization and short rehab stay. OBJECTIVE: Afebrile, Hemodynamically Stable. Anxious ++. Pressured speech. Last Vital Signs Temp Pulse Resp BP Pulse Ox 98.1 F 84 18 122/80 100 09/12/18 19:44 09/12/18 19:44 09/12/18 19:44 09/12/18 19:44 09/12/18 19:44 HEENT- Atraumatic, Normocephalic Neuro - AAO x 3. Tone/Power normal all 4 extremities Heart - S1, S2, RRR Lungs - clear to auscultation, no crackles/wheeze Abdomen - Mild distension. Non-tender. Bowel Sounds normal. Extremities - no edema. No calf tenderness. MS - No joint swelling/tenderness. Good ROM about all joints. No muscular deformity or abnormality. Laboratory Results - last 24 hr 09/12/18 09/12/18 09/12/18 15:34 15:45 15:45 WBC 6.1 RBC 4.26 Hgb 13.4 Hct 38.8 MCV 91.0 MCH 31.5 MCHC 34.6 RDW 14.7 Plt Count 193 D MPV 8.5 Absolute Neuts (auto) 2.9 Neutrophils % 48.0 Lymphocytes % 44.2 H Monocytes % 6.5 Eosinophils % 0.8 Basophils % 0.5 Nucleated RBC % 0 Sodium 139 Potassium 4.4 Chloride 105 Carbon Dioxide 29 Anion Gap 6 L BUN 14 Creatinine 0.7 Creat Clearance w eGFR > 60 Random Glucose 99 Lactic Acid Calcium 8.6 Total Bilirubin 0.3 AST 13 L ALT 31 Alkaline Phosphatase 96 Troponin I < 0.02 Total Protein 6.7 Albumin 3.6 Lipase 212 Urine Color Urine Appearance Urine pH Ur Specific [place] Urine Protein Urine Glucose (UA) Urine Ketones Urine Blood Urine Nitrite Urine Bilirubin Urine Urobilinogen Ur Leukocyte Esterase Urine WBC (Auto) Urine RBC (Auto) Ur Epithelial Cells 09/12/18 09/12/18 15:45 17:30 WBC RBC Hgb Hct MCV MCH MCHC RDW Plt Count MPV Absolute Neuts (auto) Neutrophils % Lymphocytes % Monocytes % Eosinophils % Basophils % Nucleated RBC % Sodium Potassium Chloride Carbon Dioxide Anion Gap BUN Creatinine Creat Clearance w eGFR Random Glucose Lactic Acid 1.2 Calcium Total Bilirubin AST ALT Alkaline Phosphatase Troponin I Total Protein Albumin Lipase Urine Color Ltyellow Urine Appearance Clear Urine pH 7.0 Ur Specific [place] 1.015 Urine Protein Negative Urine Glucose (UA) Negative Urine Ketones Negative Urine Blood Negative Urine Nitrite Negative Urine Bilirubin Negative Urine Urobilinogen Negative Ur Leukocyte Esterase 2+ H Urine WBC (Auto) 10 Urine RBC (Auto) 1 Ur Epithelial Cells Rare Current Medications Generic Name Dose Route Start Last Admin Trade Name Freq PRN Reason Stop Dose Admin Acetaminophen 325 mg 09/12/18 19:23 Tylenol - PO Q8H PRN PAIN LEVEL 7 - 10 Amitriptyline HCl 25 mg 09/12/18 22:00 Elavil - PO HS [facility] Calcium Carbonate 650 mg 09/13/18 10:00 Calcium Carbonate - PO DAILY [facility] Sodium Chloride 1,000 mls @ 42 mls/hr 09/12/18 19:30 09/12/18 19:24 Normal Saline - IV 42 mls/hr ASDIR OLIVER Administration Oxycodone HCl 5 mg 09/12/18 19:23 09/12/18 19:26 Roxicodone - PO 5 mg Q8H PRN Administration PAIN LEVEL 7 - 10 Pantoprazole Sodium 40 mg 09/12/18 21:15 Protonix - PO DAILY [facility] Polyethylene Glycol 17 gm 09/12/18 21:15 Miralax (For Daily Use) - PO 09/12/18 21:16 ONCE ONE Rosuvastatin Calcium 5 mg 09/14/18 22:00 Crestor - PO Q2D@2200 [facility] Home Medications Medication Instructions Recorded Cholecalciferol (Vitamin D3) 1,000 unit PO DAILY 07/09/17 [Vitamin D3 -] LORazepam [Ativan] 0.5 mg PO TID 07/09/17 Amitriptyline HCl [Elavil -] 25 mg PO HS #30 tablet 01/18/18 Calcium Carbonate [Calcium] 600 mg PO DAILY 08/22/18 Hydrocodone/Acetaminophen [[place] 2 each PO TID PRN MDD 6 08/22/18 5-325 Tablet] Bacitracin - [Bacitracin Topical 1 applic TP DAILY tube 08/25/18 Ointment -] Rosuvastatin [Crestor -] 5 mg PO Q2D #0 tablet 08/25/18 ASSESSMENT AND PLAN: 58 year old female with Anxiety, HLD, Chronic Pain Syndrome (chronically on [place]), s/p L THR, presents with burning CP radiating up to her neck and across to her back with abdominal distention and sweats. Denies palpitations/SOB/cough/ sputum/nausea/vomiting/diarrhea/melena/hematochezia. No fever/chills. No dysuria /hematuria. Complains of "musculoskeletal tightness" in her legs, hips, back, neck, head, requesting evaluation by an orthopedic surgeon. Recent fall 2 weeks ago with subsequent hospitalization and short rehab stay. 1. Atypical Chest Pain - cardiac versus GERD TropI neg, ECG - no acute changes Serial TropI measurements and Exercise Stress Test in AM as patent was admitted to exclude ACS. Given Aspirin. Continue Crestor. Will also give trial of PPI in the event she is experiencing dyspepsia. 2. Generalized MS pain and "tightness" refractory to [place] and Flexeril s/p L THR - no joint swelling or tenderness. Patient requesting Ortho eval as she believes her posture and gait to be abnormally affected by her MS ailments. Ortho consulted for eval and further recommendations 3. Diffuse abdominal discomfort and distension Lipase [address] A/P 08/22 - No acute intra-abdominal process. Abdominal US pending. Urine Cx pending. 4. History of Anxiety/Depression Patient exhibiting intense anxiety with pressured speech and some evidence of possible Somatization Continue Ativan and Amitriptyline. Consider Psych eval in AM. DVT Px - Lovenox SQ
[2018-09-12] MEDS ORDERED: PANTOPRAZOLE 40 MG TABLET (FP) ONE (23:06)
[2018-09-12] MEDS ORDERED: AMITRIPTYLINE HCL 25 MG TABLET (FP) ONE (23:06)
[2018-09-12] MEDS: PANTOPRAZOLE 40 MG TABLET (FP) PO SCH (23:14)
[2018-09-12] MEDS: ACETAMINOPHEN 325 MG TABLET (FP) PO PRN (23:37)
[2018-09-12] MEDS: AMITRIPTYLINE HCL 25 MG TABLET (FP) PO SCH (23:37)
[2018-09-13] MEDS: oxyCODONE HCL 5 MG TABLET PO PRN ×2 (06:01→15:08)
[2018-09-13] MEDS ORDERED: oxyCODONE HCL 5 MG TABLET ONE (06:01)
[2018-09-13] MEDS: CALCIUM CARBONATE 650 MG TABLET PO SCH (09:21)
[2018-09-13] MEDS: ENOXAPARIN NA (PORCINE) 40 MG/0.4 ML DISP.SYRIN SQ SCH (09:21)
[2018-09-13] MEDS: PANTOPRAZOLE 40 MG TABLET (FP) PO SCH (09:21)
--- NOTE | 2018-09-13 11:29 | CON.CARD ---
Cardiology Consult (text) - Consultation Consultation Note: Cardiology ER SERVICE coverage for Meghan IMP: Atypical CP History of Hyperlipidemia REC: 1. Serial enzymes 2. Echo for EF assessment 3. Lexiscan MPI prior to discharge 4. Further evaluation of nonspecific abdominal pain as per PMD Full consult dictated.
[2018-09-13] MEDS ORDERED: [UNRECOGNIZED DRUG - OTHER] PO PRN (12:02)
[2018-09-13] MEDS ORDERED: ACETAMINOPHEN PO PRN (12:02)
[2018-09-13] MEDS ORDERED: HYDROCODONE PO PRN (12:02)
--- NOTE | 2018-09-13 12:02 | CONS ---
CARDIOLOGY CONSULTATION DATE OF CONSULTATION: 09/13/[address] Christianson; the consultation is requested by Dr. Jerardo Downs for chest pain. HISTORY OF PRESENT ILLNESS: The patient is a 58-year-old female with past medical history of anxiety, hyperlipidemia, chronic pain syndrome, who presented to the ER with multiple complaints including throat and upper chest tightness which occurs at rest. It is not exertional; there is no associated nausea or shortness of breath. She does describe excessive diaphoresis which occurs on occasion. She describes the tightness which began 1 day prior to admission in the muscles of her upper chest and includes burning up to her throat, neck and right clavicle. She also describes a similar pain diffusely throughout her abdomen, particularly on the left side, and is particularly concerned about what she describes as a protuberant abdomen. She denies fevers or chills, diarrhea, nausea or vomiting. Patient reportedly had a CT scan of the abdomen and pelvis, August 22, 2018, which was unremarkable. PAST MEDICAL HISTORY: Is as above. ALLERGIES: She has no known drug allergies. CURRENT MEDICATIONS: Include Tylenol 325 p.o. q.8 p.r.n., amitriptyline 25 mg p.o. nightly, calcium carbonate 650 mg p.o. daily, Lovenox 40 mg subcutaneous daily, oxycodone 5 mg p.o. q.8 p.r.n., pantoprazole 40 mg p.o. daily, Crestor 5 mg p.o. daily. FAMILY HISTORY: Negative for early CAD or sudden cardiac . SOCIAL HISTORY: Nonsmoker. PHYSICAL EXAMINATION: Vital Signs: Afebrile, temperature 98.2, pulse 73, blood pressure 125/73, O2 saturation 99-100 on room air. Eyes: She is anicteric. Neck: Carotid pulses 2+. No bruits. No JVD. Heart: S1-2, regular. No murmurs, rubs or gallops. Chest: Clear bilaterally. No wheezing, rales or rhonchi. Abdomen: Soft. Nontender. No rebound or guarding. Extremities: No edema. DIAGNOSTIC DATA: Her 12-lead ECG showed normal sinus rhythm with no acute ST changes. Her chest x-ray showed no acute pathology. Ultrasound of the abdomen was performed and is currently pending. Labs: CBC: White count 6.1, hemoglobin 13.4, platelets 193. Basic metabolic panel was normal. CK negative, troponin negative x2. Lipase is negative. Urinalysis showed 2+ leukocyte esterase, but was otherwise generally unremarkable. IMPRESSION: 1. Atypical chest pain. 2. History of hyperlipidemia. RECOMMENDATIONS: 1. Telemetry. 2. Serial cardiac enzymes. 3. Echo for EF assessment. 4. Plan for a nuclear stress test in the a.m. Patient cannot walk on treadmill due to chronic pain. Will obtain a Lexiscan nuclear stress test. 5. Further workup of diffuse abdominal pain/hip pain and chronic pain as per PMD. Dr. Spencer dictating in coverage for Dr. Christianson. LUTHER SPENCER M.D. KIERSTEN/[id number]
--- NOTE | 2018-09-13 12:56 | EKG ---
Test Reason : Blood Pressure : / mmHG Vent. Rate : 086 BPM Atrial Rate : 086 BPM P-R Int : 132 ms QRS Dur : 080 ms QT Int : 342 ms P-R-T Axes : 041 056 034 degrees QTc Int : 409 ms NORMAL SINUS RHYTHM POOR R WAVE PROGRESSION Confirmed by LUTHER SPENCER MD ([id number]) on 09/13/2018 12:56:07 PM Referred By: Confirmed By:LUTHER SPENCER MD
[2018-09-13] MEDS ORDERED: LORazepam 0.5 MG TABLET ONE (13:39)
[2018-09-13] MEDS ORDERED: ASPIRIN 81 MG CHEWABLE TABLETS ONE (13:39)
[2018-09-13] MEDS: LORazepam 0.5 MG TABLET PO SCH ×2 (13:42→22:56)
[2018-09-13] MEDS: ASPIRIN COATED 81 MG TABLET.EC PO SCH (13:42)
--- NOTE | 2018-09-13 14:01 | PN ---
Progress Note (short form) - Note Progress Note: SUBJECTIVE: Still complains of generalized muscular tightness, aches, abdominal distension, burning in neck and face. No nausea/vomiting/diarrhea/fever/chills. No cough/sputum/hemoptysis. OBJECTIVE: Afebrile, Hemodynamically Stable. Anxious ++. Pressured speech. Last Vital Signs Temp Pulse Resp BP Pulse Ox 98.1 F 79 16 137/80 98 09/13/18 13:04 09/13/18 13:04 09/13/18 13:04 09/13/18 13:04 09/13/18 13:04 HEENT- Atraumatic, Normocephalic. No pharyngeal erythema/exudate Neuro - AAO x 3. Tone/Power normal all 4 extremities Heart - S1, S2, RRR Lungs - clear to auscultation, no crackles/wheeze Abdomen - Mild distension. Non-tender. Bowel Sounds normal. Extremities - no edema. No calf tenderness. MS - No joint swelling/tenderness. Good ROM about all joints. No muscular deformity or abnormality. Laboratory Results - last 24 hr 09/12/18 09/12/18 09/12/18 15:34 15:45 15:45 WBC 6.1 RBC 4.26 Hgb 13.4 Hct 38.8 MCV 91.0 MCH 31.5 MCHC 34.6 RDW 14.7 Plt Count 193 D MPV 8.5 Absolute Neuts (auto) 2.9 Neutrophils % 48.0 Lymphocytes % 44.2 H Monocytes % 6.5 Eosinophils % 0.8 Basophils % 0.5 Nucleated RBC % 0 Sodium 139 Potassium 4.4 Chloride 105 Carbon Dioxide 29 Anion Gap 6 L BUN 14 Creatinine 0.7 Creat Clearance w eGFR > 60 Random Glucose 99 Lactic Acid Calcium 8.6 Total Bilirubin 0.3 AST 13 L ALT 31 Alkaline Phosphatase 96 Troponin I < 0.02 Total Protein 6.7 Albumin 3.6 Lipase 212 Urine Color Urine Appearance Urine pH Ur Specific [place] Urine Protein Urine Glucose (UA) Urine Ketones Urine Blood Urine Nitrite Urine Bilirubin Urine Urobilinogen Ur Leukocyte Esterase Urine WBC (Auto) Urine RBC (Auto) Ur Epithelial Cells 09/12/18 09/12/18 09/13/18 15:45 17:30 01:14 WBC RBC Hgb Hct MCV MCH MCHC RDW Plt Count MPV Absolute Neuts (auto) Neutrophils % Lymphocytes % Monocytes % Eosinophils % Basophils % Nucleated RBC % Sodium Potassium Chloride Carbon Dioxide Anion Gap BUN Creatinine Creat Clearance w eGFR Random Glucose Lactic Acid 1.2 Calcium Total Bilirubin AST ALT Alkaline Phosphatase Troponin I < 0.02 Total Protein Albumin Lipase Urine Color Ltyellow Urine Appearance Clear Urine pH 7.0 Ur Specific [place] 1.015 Urine Protein Negative Urine Glucose (UA) Negative Urine Ketones Negative Urine Blood Negative Urine Nitrite Negative Urine Bilirubin Negative Urine Urobilinogen Negative Ur Leukocyte Esterase 2+ H Urine WBC (Auto) 10 Urine RBC (Auto) 1 Ur Epithelial Cells Rare Current Medications Generic Name Dose Route Start Last Admin Trade Name Freq PRN Reason Stop Dose Admin Acetaminophen 325 mg 09/12/18 19:23 09/12/18 23:37 Tylenol - PO 325 mg Q8H PRN Administration PAIN LEVEL 7 - 10 Amitriptyline HCl 25 mg 09/12/18 22:00 09/12/18 23:37 Elavil - PO 25 mg HS [facility] Administration Aspirin 81 mg 09/13/18 12:00 09/13/18 13:42 Ecotrin - PO 81 mg DAILY [facility] Administration Calcium Carbonate 650 mg 09/13/18 10:00 09/13/18 09:21 Calcium Carbonate - PO 650 mg DAILY [facility] Administration Cholecalciferol 1,000 unit 09/13/18 12:15 Vitamin D3 - PO DAILY [facility] Enoxaparin Sodium 40 mg 09/13/18 10:00 09/13/18 09:21 Lovenox - SQ Not Given DAILY [facility] Sodium Chloride 1,000 mls @ 42 mls/hr 09/12/18 19:30 09/12/18 19:24 Normal Saline - IV 42 mls/hr ASDIR [facility] Administration Lorazepam 0.5 mg 09/13/18 14:00 09/13/18 13:42 Ativan - PO 0.5 mg TID [facility] Administration Non-Formulary Medication 2 each 09/13/18 12:02 Hydrocodone/Acetaminophen [[place] 5-325 Tablet] PO TID PRN BACK PAIN Oxycodone HCl 5 mg 09/12/18 19:23 09/13/18 06:01 Roxicodone - PO 5 mg Q8H PRN Administration PAIN LEVEL 7 - 10 Pantoprazole Sodium 40 mg 09/12/18 21:15 09/13/18 09:21 Protonix - PO 40 mg DAILY [facility] Administration Rosuvastatin Calcium 5 mg 09/14/18 22:00 Crestor - PO Q2D@2200 [facility] ASSESSMENT AND PLAN: 58 year old female with Anxiety, HLD, Chronic Pain Syndrome (chronically on [place]), s/p L THR, presents with burning CP radiating up to her neck and across to her back with abdominal distention and sweats. Denies palpitations/SOB/cough/ sputum/nausea/vomiting/diarrhea/melena/hematochezia. No fever/chills. No dysuria /hematuria. Complains of "musculoskeletal tightness" in her legs, hips, back, neck, head, requesting evaluation by an orthopedic surgeon and outside dealer sales representative. Recent fall 2 weeks ago with subsequent hospitalization and short rehab stay. 1. Atypical Chest Pain - cardiac versus GERD TropI neg, ECG - no acute changes Serial TropI measurements negative. Evaluated by Cardiology - for [place] Lexiscan in AM to exclude ACS. Given Aspirin. Continue Crestor pending CPK result. Will also give trial of PPI in the event she is experiencing dyspepsia. Patient requesting GI consult for abdominal distension and possible dyspeptic symptoms. 2. Generalized MS pain and "tightness" refractory to [place] and Flexeril s/p L THR - no joint swelling or tenderness. Patient requesting Ortho eval as she believes her posture and gait to be abnormally affected by her MS ailments. Ortho consulted for eval and further recommendations. CPK pending. 3. Diffuse abdominal discomfort and mild distension Lipase [address] A/P 08/22 - No acute intra-abdominal process. Abdominal US report pending Urine Cx pending. GI consulted. 4. History of Anxiety/Depression Patient exhibiting intense anxiety with pressured speech and some evidence of possible Somatization Continue Ativan and Amitriptyline. Consider Psych eval in AM. DVT Px - Lovenox SQ Visit type - Emergency Visit Emergency Visit: Yes ED Registration Date: 09/12/18 Care time: The patient presented to the Emergency Department on the above date and was hospitalized for further evaluation of their emergent condition. - New Patient This patient is new to me today: No - Critical Care Critical Care patient: No - Discharge Referral Referred to [facility] Med P.C.: No
[2018-09-13 14:27] VITALS: BMI 29.3
[2018-09-13] MEDS: CHOLECALCIFEROL (VITAMIN D3) 1,000 UNIT TABLET (FP) PO SCH (15:08)
[2018-09-13] MEDS ORDERED: PT OWN MED DRAWER 7, Y5N ONE (15:14)
[2018-09-13] MEDS: POLYETHYLENE GLYCOL 3350 119 GM BTL PO PRN (18:00)
--- NOTE | 2018-09-13 19:08 | CON.GI ---
Consult Consult Specialty:: covering for Dr Stahl - History of Present Illness History of Present Illness: 58 y/o F with history chronic pain syndrome, vertebral arthritis was admitted because of throat pain and chest pain. She is presently undergoing cardiac work up in am. She also complains of abdominal pbloating ,consitpation and vagua abdominal pain. Catscna done without contrast last July 2018 was normal. SHe taking opiods chronically. Ahe denies rectal bleeding, melena and unexplained weight loss. 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) Cardio/Vascular: Yes: Hyperlipdemia Psych: Yes: Anxiety, Bipolar Musculoskeletal: Yes: Osteoarthritis, Other (left hip replacement) - Past Surgical History Past Surgical History: Yes: Joint Replacement - Alcohol/Substance Use Hx Alcohol Use: No History of Substance Use: reports: None - Smoking History Smoking history: Never smoked Have you smoked in the past 12 months: No - Social History Usual Living Arrangement: Other (lives with sister in apartment with 2 flights to enter) ADL: Family Assistance History of Recent Travel: No Home Medications - Allergies Allergies/Adverse Reactions: Allergies Allergy/AdvReac Type Severity Reaction Status Date / Time No Known Allergies Allergy Verified 09/12/18 13:05 - Home Medications Home Medications: Ambulatory Orders Cholecalciferol (Vitamin D3) [Vitamin D3 -] 1,000 unit PO DAILY 07/09/17 LORazepam [Ativan] 0.5 mg PO TID 07/09/17 Amitriptyline HCl [Elavil -] 25 mg PO HS #30 tablet 01/18/18 Calcium Carbonate [Calcium] 600 mg PO DAILY 08/22/18 Hydrocodone/Acetaminophen [[place] 5-325 Tablet] 2 each PO TID PRN MDD 6 08/22/18 Bacitracin - [Bacitracin Topical Ointment -] 1 applic TP DAILY tube 08/25/18 Rosuvastatin [Crestor -] 5 mg PO Q2D #0 tablet 08/25/18 Review of Systems - Review of Systems HENT: denies: Difficult Swallowing Cardiovascular: reports: Chest Pain Respiratory: denies: Exercise Intolerance Gastrointestinal: reports: Abdominal Pain, Bloating, Constipation. denies: Diarrhea, Dysphagia, Indigestion, Vomiting, Vomiting Blood Physical Exam-GI Vital Signs: Vital Signs Temperature 98.1 F 09/13/18 17:05 Pulse Rate 81 09/13/18 17:05 Respiratory Rate 18 09/13/18 17:05 Blood Pressure 116/65 09/13/18 17:05 O2 Sat by Pulse Oximetry (%) 97 09/13/18 14:00 Constitutional: Yes: Well Nourished Eyes: Yes: Conjunctiva Clear HENT: Yes: Atraumatic Neck: Yes: Supple Cardiovascular: Yes: Regular Rate and Rhythm Respiratory: Yes: CTA Bilaterally Gastrointestinal Inspection: Yes: Distention ...Auscultate: Yes: Normoactive Bowel Sounds ...Palpate: Yes: Soft. No: Firm/Rigid, Guarding, Hepatomegaly, Mass, Pulsatile Mass, Splenomegaly, Tenderness ...Percussion: Yes: Tympanitic Labs: CBC, BMP 09/12/18 15:45 09/12/18 15:45 Home Medications Medication Instructions Recorded Cholecalciferol (Vitamin D3) 1,000 unit PO DAILY 07/09/17 [Vitamin D3 -] LORazepam [Ativan] 0.5 mg PO TID 07/09/17 Amitriptyline HCl [Elavil -] 25 mg PO HS #30 tablet 01/18/18 Calcium Carbonate [Calcium] 600 mg PO DAILY 08/22/18 Hydrocodone/Acetaminophen [[place] 2 each PO TID PRN MDD 6 08/22/18 5-325 Tablet] Bacitracin - [Bacitracin Topical 1 applic TP DAILY tube 08/25/18 Ointment -] Rosuvastatin [Crestor -] 5 mg PO Q2D #0 tablet 08/25/18 Active Medications Generic Name Dose Route Start Last Admin Trade Name Freq PRN Reason Stop Dose Admin Acetaminophen 325 mg 09/12/18 19:23 09/12/18 23:37 Tylenol - PO 325 mg Q8H PRN Administration PAIN LEVEL 7 - 10 Amitriptyline HCl 25 mg 09/12/18 22:00 09/12/18 23:37 Elavil - PO 25 mg HS [facility] Administration Aspirin 81 mg 09/13/18 12:00 09/13/18 13:42 Ecotrin - PO 81 mg DAILY [facility] Administration Calcium Carbonate 650 mg 09/13/18 10:00 09/13/18 09:21 Calcium Carbonate - PO 650 mg DAILY [facility] Administration Cholecalciferol 1,000 unit 09/13/18 12:15 02/17/19 15:08 Vitamin D3 - PO 1,000 unit DAILY [facility] Administration Enoxaparin Sodium 40 mg 09/13/18 10:00 09/13/18 09:21 Lovenox - SQ Not Given DAILY [facility] Lorazepam 0.5 mg 09/13/18 14:00 09/13/18 13:42 Ativan - PO 0.5 mg TID [facility] Administration Oxycodone HCl 5 mg 09/12/18 19:23 09/13/18 15:08 Roxicodone - PO 5 mg Q8H PRN Administration PAIN LEVEL 7 - 10 Pantoprazole Sodium 40 mg 09/12/18 21:15 09/13/18 09:21 Protonix - PO 40 mg DAILY [place] Administration Polyethylene Glycol 17 gm 09/13/18 18:47 09/13/18 18:00 Miralax (For Daily Use) - PO 17 gm DAILY PRN Administration CONSTIPATION Rosuvastatin Calcium 5 mg 09/14/18 22:00 Crestor - PO Q2D@2200 [facility] Problem List - Problems (1) Therapeutic opioid induced constipation Assessment/Plan: R> Relistor 12 mg daily FUA r/o fecal impaction will need colonoscopy even as an outpatient Dr Stahl will resume care of the patient in am Code(s): K59.03 - DRUG INDUCED CONSTIPATION; T40.2X5A - ADVERSE EFFECT OF OTHER OPIOIDS, INITIAL ENCOUNTER
[2018-09-13] MEDS: AMITRIPTYLINE HCL 25 MG TABLET (FP) PO SCH (21:52)
[2018-09-13] MEDS: Methylnaltrexone Bromide 12 MG/0.6 ML KIT SQ SCH (21:52)
[2018-09-13] MEDS: ACETAMINOPHEN 325 MG TABLET (FP) PO PRN (21:53)
[2018-09-14] MEDS: oxyCODONE HCL 5 MG TABLET PO PRN ×3 (03:33→22:16)
[2018-09-14] MEDS: LORazepam 0.5 MG TABLET PO SCH ×4 (05:26→21:37)
[2018-09-14] MEDS ORDERED: REGADENOSON 0.4 MG/5 ML PRE-FILLED SYRINGE IVPUSH ONE ×2 (10:16→11:45)
--- NOTE | 2018-09-14 12:02 | PN ---
Progress Note, Physician Chief Complaint: Cardiology for Dr. Franklin History of Present Illness: 58 y/o F with history chronic pain syndrome, vertebral arthritis was admitted because of chronic neck pain and chest pain, non-exertional worse with positional changes and movement. Declined MIBI ordererd previously. - Current Medication List Current Medications: Active Medications Acetaminophen (Tylenol -) 325 mg PO Q8H PRN PRN Reason: PAIN LEVEL 7 - 10 Last Admin: 09/13/18 21:53 Dose: 325 mg Amitriptyline HCl (Elavil -) 25 mg PO HS [facility] Last Admin: 09/13/18 21:52 Dose: 25 mg Aspirin (Ecotrin -) 81 mg PO DAILY [facility] Last Admin: 09/13/18 13:42 Dose: 81 mg Calcium Carbonate (Calcium Carbonate -) 650 mg PO DAILY [facility] Last Admin: 09/13/18 09:21 Dose: 650 mg Cholecalciferol (Vitamin D3 -) 1,000 unit PO DAILY [facility] Last Admin: 09/13/18 15:08 Dose: 1,000 unit Enoxaparin Sodium (Lovenox -) 40 mg SQ DAILY [facility] Last Admin: 09/13/18 09:21 Dose: Not Given Lorazepam (Ativan -) 0.5 mg PO TID [facility] Last Admin: 09/14/18 09:17 Dose: 0.5 mg Methylnaltrexone [place] (Relistor -) 12 mg SQ DAILY [facility] Last Admin: 09/13/18 21:52 Dose: 12 mg Oxycodone HCl (Roxicodone -) 5 mg PO Q8H PRN PRN Reason: PAIN LEVEL 7 - 10 Last Admin: 09/14/18 03:33 Dose: 5 mg Pantoprazole Sodium (Protonix -) 40 mg PO DAILY [facility] Last Admin: 09/13/18 09:21 Dose: 40 mg Polyethylene Glycol (Miralax (For Daily Use) -) 17 gm PO DAILY PRN PRN Reason: CONSTIPATION Last Admin: 09/13/18 18:00 Dose: 17 gm Rosuvastatin Calcium (Crestor -) 5 mg PO Q2D@2200 [facility] - Objective Vital Signs: Vital Signs Temperature 97.9 F 09/14/18 09:00 Pulse Rate 77 09/14/18 09:00 Respiratory Rate 18 09/14/18 09:00 Blood Pressure 120/80 09/14/18 09:00 O2 Sat by Pulse Oximetry (%) 98 09/14/18 05:56 Constitutional: Yes: No Distress, Calm Neck: Yes: Supple Cardiovascular: Yes: Regular Rate and Rhythm Respiratory: Yes: Regular, CTA Bilaterally Gastrointestinal: Yes: Normal Bowel Sounds, Soft Edema: No Labs: CBC, BMP 09/12/18 15:45 09/12/18 15:45 Problem List - Problems (1) Atypical chest pain Code(s): R07.89 - OTHER CHEST PAIN (2) Therapeutic opioid induced constipation Code(s): K59.03 - DRUG INDUCED CONSTIPATION; T40.2X5A - ADVERSE EFFECT OF OTHER OPIOIDS, INITIAL ENCOUNTER (3) Total body pain Code(s): R52 - PAIN, UNSPECIFIED Assessment/Plan IMP: Atypical CP suspect musculoskeletal etiology Hyperlipidemia Opioid-induced constipation REC: 1. Ruled out for [place] 2. Echo for EF assessment 3. Patient declined Lexiscan MPI 4. FUA r/o fecal impaction, will need colonoscopy as an outpatient
--- NOTE | 2018-09-14 12:16 | PN ---
Progress Note (short form) - Note Progress Note: patient is not Dr rice or Dr mortensen patient should be under the hospitalist service
[2018-09-14] MEDS: Methylnaltrexone Bromide 12 MG/0.6 ML KIT SQ SCH (12:23)
[2018-09-14] MEDS: ASPIRIN COATED 81 MG TABLET.EC PO SCH (12:23)
[2018-09-14] MEDS: ENOXAPARIN NA (PORCINE) 40 MG/0.4 ML DISP.SYRIN SQ SCH (12:23)
[2018-09-14] MEDS: CALCIUM CARBONATE 650 MG TABLET PO SCH (12:23)
[2018-09-14] MEDS: PANTOPRAZOLE 40 MG TABLET (FP) PO SCH (12:23)
[2018-09-14] MEDS: CHOLECALCIFEROL (VITAMIN D3) 1,000 UNIT TABLET (FP) PO SCH (12:24)
[2018-09-14] MEDS: POLYETHYLENE GLYCOL 3350 119 GM BTL PO PRN (12:24)
--- NOTE | 2018-09-14 12:24 | ECHO ---
Name: ANNETTE MARQUES Exam:Adult Echocardiogram Study Date: 09/14/2018 11:14 AM Age: 58 yrs Reason For Study: CHEST PAIN Height: 60 in Weight: 150 lb BSA: 1.7 m2 MMode/2D Measurements & Calculations IVSd: 0.81 cm Ao root diam: 2.3 cm LVIDd: 4.2 cm LA dimension: 3.0 cm LVIDs: 3.0 cm LVPWd: 0.80 cm EDV(Teich): 80.6 ml TAPSE: 1.6 cm ESV(Teich): 36.2 ml Doppler Measurements & Calculations MV E max ko: 39.5 cm/sec Ao V2 max: 119.5 cm/sec MV A max ko: 64.2 cm/sec Ao max P.7 mmHg MV E/A: 0.62 MV dec time: 0.21 sec LV V1 max P.1 mmHg TR max ko: 103.0 cm/sec LV V1 max: 72.9 cm/sec TR max P.2 mmHg Med Peak E' Ko: 3.2 cm/sec Med E/e': 12.3 Lat Peak E' Ko: 4.9 cm/sec Lat E/e': 8.1 Procedure A complete two-dimensional transthoracic echocardiogram was performed (2D, M-mode, Doppler and color flow Doppler). Left Ventricle The left ventricle is normal in size. Left ventricular systolic function is normal. Ejection Fraction = 55- 60%. Grade I diastolic dysfunction, (abnormal relaxation pattern). Ratio E/E'= 12. No regional wall m otion abnormalities noted. Right Ventricle The right ventricle is normal size. RV systolic TDI is 10 cm/s. The right ventricular systolic functi on is normal. Atria The left atrial size is normal. Right atrial size is normal. Mitral Valve The mitral valve is normal in structure and function. There is no mitral regurgitation noted. Tricuspid Valve The tricuspid valve is normal in structure and function. No tricuspid regurgitation. Aortic Valve The aortic valve is normal in structure and function. No aortic regurgitation is present. Pulmonic Valve The pulmonic valve is not well visualized. Great Vessels The aortic root is normal size. Pericardium/Pleura There is no pericardial effusion. Interpretation Summary The left ventricle is normal in size. Left ventricular systolic function is normal. No regional wall motion abnormalities noted. Ejection Fraction = 55-60%. Grade I diastolic dysfunction, (abnormal relaxation pattern). Ratio E/E'= 12 The right ventricular systolic function is normal. The left atrial size is normal. Right atrial size is normal. No significant valvular regurgitations There is no pericardial effusion. Previous study is not available for comparison Dandre Kirkland MD 09/14/2018 12:23 PM
--- NOTE | 2018-09-14 19:28 | PN ---
Progress Note (short form) - Note Progress Note: SUBJECTIVE: Still complains of generalized muscular tightness, aches, abdominal distension, burning in neck and face. No nausea/vomiting/diarrhea/fever/chills. Occassional constipation for which she takes Miralax. No cough/sputum/ hemoptysis. OBJECTIVE: Afebrile, Hemodynamically Stable. Anxious ++. Last Vital Signs Temp Pulse Resp BP Pulse Ox 98.7 F 91 H 18 135/71 98 09/14/18 14:00 09/14/18 14:00 09/14/18 14:00 09/14/18 14:00 09/14/18 14:00 HEENT- Atraumatic, Normocephalic. No pharyngeal erythema/exudate Neuro - AAO x 3. Tone/Power normal all 4 extremities Heart - S1, S2, RRR Lungs - clear to auscultation, no crackles/wheeze Abdomen - Mild distension. Non-tender. Bowel Sounds normal. Extremities - no edema. No calf tenderness. MS - No joint swelling/tenderness. Good ROM about all joints. No muscular deformity or abnormality. Current Medications Generic Name Dose Route Start Last Admin Trade Name Freq PRN Reason Stop Dose Admin Acetaminophen 325 mg 09/12/18 19:23 09/13/18 21:53 Tylenol - PO 325 mg Q8H PRN Administration PAIN LEVEL 7 - 10 Amitriptyline HCl 25 mg 09/12/18 22:00 09/13/18 21:52 Elavil - PO 25 mg HS [place] Administration Aspirin 81 mg 09/13/18 12:00 09/14/18 12:23 Ecotrin - PO 81 mg DAILY [facility] Administration Calcium Carbonate 650 mg 09/13/18 10:00 09/14/18 12:23 Calcium Carbonate - PO 650 mg DAILY [facility] Administration Cholecalciferol 1,000 unit 09/13/18 12:15 09/14/18 12:24 Vitamin D3 - PO 1,000 unit DAILY [facility] Administration Enoxaparin Sodium 40 mg 09/13/18 10:00 09/14/18 12:23 Lovenox - SQ 40 mg DAILY [facility] Administration Lorazepam 0.5 mg 09/13/18 14:00 09/14/18 15:02 Ativan - PO Not Given TID [facility] Methylnaltrexone [place] 12 mg 09/13/18 19:15 09/14/18 12:23 Relistor - SQ Not Given DAILY [facility] Oxycodone HCl 5 mg 09/12/18 19:23 09/14/18 13:54 Roxicodone - PO 5 mg Q8H PRN Administration PAIN LEVEL 7 - 10 Pantoprazole Sodium 40 mg 09/12/18 21:15 09/14/18 12:23 Protonix - PO 40 mg DAILY [facility] Administration Polyethylene Glycol 17 gm 09/13/18 18:47 09/14/18 12:24 Miralax (For Daily Use) - PO 17 gm DAILY PRN Administration CONSTIPATION Rosuvastatin Calcium 5 mg 09/14/18 22:00 Crestor - PO Q2D@2200 [facility] ASSESSMENT AND PLAN: 58 year old female with Anxiety, HLD, Chronic Pain Syndrome (chronically on [place]), s/p L THR, presents with burning CP radiating up to her neck and across to her back with abdominal distention and sweats. Denies palpitations/SOB/cough/ sputum/nausea/vomiting/diarrhea/melena/hematochezia. No fever/chills. No dysuria /hematuria. 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 Recent fall 2 weeks ago with subsequent hospitalization and short rehab stay. 1. Atypical Chest Pain - cardiac versus GERD TropI neg, ECG - no acute changes Serial TropI measurements negative. Evaluated by Cardiology recommended NM Lexiscan, which patient refused. Echo performed - showed grade 1 diastolic dysfunction. Currently on trial of PPI for possible GERD GI evaluated and recommended Relistor for constipation and colonoscopy as out- patient. 2. Generalized MS pain and "tightness" refractory to [place] and Flexeril s/p L THR - no joint swelling or tenderness. Patient requesting Ortho eval as she believes her posture and gait to be abnormally affected by her MS ailments - Dr. Santos agrees to see 09/15/18. CPK normal. 3. Diffuse abdominal discomfort and mild distension Lipase [address] A/P 08/22 - No acute intra-abdominal process. Abdominal US - no acute findings. Urine Cx negative GI consulted. 4. History of Anxiety/Depression Patient exhibiting intense anxiety with pressured speech and some evidence of possible Somatization Continue Ativan and Amitriptyline. Psychiatry consulted for Psych medication optimization. DVT Px - Lovenox SQ Dispo - patient demanding Rehab placement despite independent mobility - PT and SW consulted. Visit type - Emergency Visit Emergency Visit: Yes ED Registration Date: 09/12/18 Care time: The patient presented to the Emergency Department on the above date and was hospitalized for further evaluation of their emergent condition. - New Patient This patient is new to me today: No - Critical Care Critical Care patient: No - Discharge Referral Referred to [facility] Med P.C.: No
--- NOTE | 2018-09-14 21:27 | PN ---
Progress Note (short form) - Note Progress Note: Consult dictated. No need for orthopedic intervention at this time. Continue with pain management. Consider storage engineer consultation as outpatient.
[2018-09-14] MEDS: AMITRIPTYLINE HCL 25 MG TABLET (FP) PO SCH (21:37)
--- NOTE | 2018-09-14 21:49 | CONS ---
DATE OF CONSULTATION: 09/14/2018 CHIEF COMPLAINT: Body pain. HISTORY OF PRESENT ILLNESS: This is a 58-year-old female who has previously been evaluated in the office for diffuse joint pains. She has been evaluated by a brand specialist as well as Pain Management. She states today that she has pain in both shoulders, in the neck, in the midback, in the low back, in the abdomen, in both hips as well as both knees and she states that both ankles hurt as well. She notes that her ankles turn in. She notes that she walks leaning to the side. She states that everything feels like it is burning. She states that nothing helps. PAST MEDICAL HISTORY: Significant for anxiety, hyperlipidemia, chronic pain. PAST SURGICAL HISTORY: Significant for total hip replacement on the left. SOCIAL HISTORY: She denies alcohol, tobacco, or illicit drug use. ALLERGIES: Patient denies. MEDICATIONS: Vitamin D, Ativan, Elavil, calcium, hydrocodone, Crestor. REVIEW OF SYSTEMS: Negative for any fever, chills, nausea, vomiting, or night sweats. PHYSICAL EXAMINATION: General: This is a well-appearing female in no acute distress. She is alert and oriented x3. She is seen ambulating comfortably in her room. She speaks with somewhat pressured speech and circles around to the same topics over and over. Musculoskeletal: She shows full range of motion of both shoulders without any obvious discomfort. She has good strength throughout the rotator cuff on both sides. She has an intact distal neurovascular examination in both upper extremities. She has comfortable range of motion of both hips. There is slightly better rotation on the left than on the right. She has no pain with rotation of the joints. She has no tenderness over the knees and no swelling. Her ankles reveal no tenderness, no swelling. The distal neurovascular examination is intact in the lower extremities as well. ASSESSMENT: A 58-year-old female with diffuse bodyaches. PLAN: I discussed today's findings with the patient. Compared to her last evaluation in the office, there have been no significant interval changes. Her body pains are diffuse and unlikely to be caused by a particular joint or musculoskeletal issue. She does have a history of some diffuse degenerative changes; however, none that would explain the severe pain that she is in, which is unrelenting and unresponsive to treatment. We did discuss one option for her as an outpatient is to see an independent producer to rule out any metal allergy to her hip as a potential source; however, this is of relatively low probability. I believe her best option is to consider either further pain management or, perhaps, further anxiety management to help with management of her pain. She can follow up as an outpatient. SVETLANA GONZALES M.D. [id number]
[2018-09-14] MEDS ORDERED: ROSUVASTATIN CA 5 MG TABLET (FP) PO SCH (22:00)
[2018-09-14] MEDS: ACETAMINOPHEN 325 MG TABLET (FP) PO PRN (22:16)
[2018-09-14] MEDS ORDERED: RANITIDINE HCL 150 MG TABLET (FP) PO ONE (23:00)
[2018-09-15] MEDS: LORazepam 0.5 MG TABLET PO SCH ×2 (06:00→14:00)
[2018-09-15] MEDS: ACETAMINOPHEN 325 MG TABLET (FP) PO PRN ×2 (06:00→16:04)
[2018-09-15] MEDS: oxyCODONE HCL 5 MG TABLET PO PRN ×2 (06:02→16:03)
[2018-09-15] MEDS ORDERED: PT OWN MED DRAWER 7, Y5N ONE ×3 (08:31→10:36)
[2018-09-15] MEDS ORDERED: SODIUM PHOSPHATE/NA BIPHOS 133 ML ENEMA PR ONE (09:00)
[2018-09-15] MEDS ORDERED: POLYETHYLENE GLYCOL 3350 119 GM BTL PO SCH (10:00)
[2018-09-15] MEDS: PANTOPRAZOLE 40 MG TABLET (FP) PO SCH (10:41)
[2018-09-15] MEDS: CHOLECALCIFEROL (VITAMIN D3) 1,000 UNIT TABLET (FP) PO SCH (10:41)
[2018-09-15] MEDS: CALCIUM CARBONATE 650 MG TABLET PO SCH (10:41)
[2018-09-15] MEDS: ASPIRIN COATED 81 MG TABLET.EC PO SCH (10:41)
[2018-09-15] MEDS: ENOXAPARIN NA (PORCINE) 40 MG/0.4 ML DISP.SYRIN SQ SCH ×2 (10:44→10:47)
[2018-09-15] MEDS: Methylnaltrexone Bromide 12 MG/0.6 ML KIT SQ SCH (11:30)
--- NOTE | 2018-09-15 12:13 | PN ---
Teaching Attending Note Name of Resident: Lucila Ewing ATTENDING PHYSICIAN STATEMENT I saw and evaluated the patient. I reviewed the resident's note and discussed the case with the resident. I agree with the resident's findings and plan as documented. SUBJECTIVE:many very vague complaints. most of them seem chronic. denies CP, SOB , fever, chills OBJECTIVE: Last Vital Signs Temp Pulse Resp BP Pulse Ox 97.7 F 68 18 119/79 98 09/15/18 06:00 09/15/18 06:00 09/15/18 06:00 09/15/18 06:00 09/15/18 06:00 General NAD, anxious CV S1 S2 RRR no murmur/rub/gallop MSK diffuse muscle aches ASSESSMENT AND PLAN: 58 year old female with Anxiety, HLD, Chronic Pain Syndrome (chronically on [place]), s/p L THR, presents with burning CP radiating up to her neck and across to her back with abdominal distention and sweats. Denies palpitations/SOB/cough/ sputum/nausea/vomiting/diarrhea/melena/hematochezia. No fever/chills. No dysuria /hematuria. Complains of "musculoskeletal tightness" in her legs, hips, back, neck, head, requesting evaluation by an orthopedic surgeon and manufacturing engineer. Recent fall 2 weeks ago with subsequent hospitalization and short rehab stay. 1. Atypical Chest Pain - cardiac versus GERD. cardiax enzymes neg. seen by cardio and recommended NMST however pt refused. echo done and results noted. on PPI trial to see if that helps 2. Generalized pains-seems diffuse and not related to 1 location. focused on her hip since the surgery and her spine. had MRI done several months ago and saw ortho who recommended surgery which she refused. had a 2nd opinion who recommended PT which she started several weeks ago. saw one here who recommended nothing to do at this time. walked 100ft with PT. would recommend continuing with PT as outpatient for diffuse body aches 3. constipation- liekly opiate induced. given relistor x1. refused subsequent doses. will give enema. encourages po water intake and fiber. aggressive bowel regimen. saw by Gi and recommends colonoscopy as outpatient 4. anxiety- on ativaln and elavil. would recommend f/u with psychiatrist for further monitoring on her medications. pt is not threat to herself or others 5. d/c home today. encouraged her to f/u with her PMD for her vague symptoms for further testing.
--- NOTE | 2018-09-15 12:20 | DS ---
Physical Exam: SUBJECTIVE: Patient seen and complains of diffuse pain. Patient complains of every part of her hurting all the time. She requests to see more specialist. OBJECTIVE: Vital Signs Temperature 97.6 F 09/15/18 10:00 Pulse Rate 87 09/15/18 10:00 Respiratory Rate 18 09/15/18 10:00 Blood Pressure 126/80 09/15/18 10:00 O2 Sat by Pulse Oximetry (%) 98 09/15/18 10:00 PHYSICAL EXAM GENERAL: The patient is awake, alert, and fully oriented, in no acute distress. HEAD: Normal with no signs of trauma. EYES: PERRL, extraocular movements intact, LUNGS: Breath sounds equal, clear to auscultation bilaterally, HEART: Regular rate and rhythm, S1, S2 ABDOMEN: Soft, nontender, nondistended, normoactive bowel sounds, EXTREMITIES: 2+ pulses, warm, well-perfused, no edema. Scar on left hip from previous surgery PSYCH: Normal mood, normal affect. SKIN: Warm, dry, normal turgor, no rashes or lesions noted. LABS HOSPITAL COURSE: Date of Admission:09/12/18 Patient admitted for chest pain. Patient had one negative trop, refused the second trop, refused echo, and stress test. Patient also complains of abd pain, with negative ultrasound. Seen by GI who treated constipation, with out patient follow up for colonoscopy. Patient examined by ortho for hip pain. Discussed patient can follow up as an outpatient. CXR: no acute chest pathology ABD US: no intraperitoneal fluid, CBD .4 cm ABD Xray: constipation, clear lung bases, left hip repair, pelvic calcification Date of Discharge: 09/15/18 Minutes to complete discharge: 40 Discharge Summary Reason For Visit: CHRONIC PAIN Current Active Problems Chest pain (Chronic) Therapeutic opioid induced constipation (Chronic) Total body pain (Chronic) Condition: Stable - Instructions Diet, Activity, Other Instructions: You were admitted to the hospital for chest pain. We monitored your heart and found it is functioning properly. You were evaluated by Orthopedics for the pain in your right hip, back, and other muscles and bones. Tests showed that there was nothing that required hospital intervention. You will most benefit from physical therapy for at least 3 months. Please make an appointment with Dr. Bland or other orthopedic surgeon to follow up with pain in your hip and chronic pain while undergoing physical therapy You were evaluated by Dr. Zarco for constipation. He started you on a medication to help, please make an appointment with Dr. Head to follow up with a colonoscopy to be done in his offices. If you have concerns with your anxiety, Dr. Santillan's office (a psychiatrist) will be able to help To treat the Constipation please take: Senna 1 capsule by mouth once a day Colace 1 capsule by mouth once a day Miralax 17 grams by mouth once a day Please continue to take all of your other home medications as prescribed. Please make an appointment to follow up with your primary care physician within one week. Return to the Emergency Department if you have fever, chills, diarrhea, or shortness of breath. Referrals: Vishal Santillan MD [Staff Physician] - Regis Head DO [Staff Physician] - (follow up colonoscopy) Dar Little MD [Staff Physician] - Miguel Zarco MD [Staff Physician] - Billy Colby MD [Primary Care Provider] - [facility]position: [facility] - Home Medications Comprehensive Discharge Medication List: Ambulatory Orders LORazepam [Ativan] 0.5 mg PO TID 07/09/17 Hydrocodone/Acetaminophen [[place] 5-325 Tablet] 2 each PO TID PRN MDD 6 08/22/18 Amitriptyline HCl [Elavil -] 25 mg PO HS #0 tablet 09/15/18 Calcium Carbonate - 650 mg PO DAILY tablet 09/15/18 Cholecalciferol (Vitamin D3) [Vitamin D3 -] 1,000 unit PO DAILY tab 09/15/18 Docusate Sodium [Colace] 100 mg PO DAILY #1 capsule 09/15/18 Pantoprazole Sodium [Protonix -] 40 mg PO DAILY tablet.ec 09/15/18 Polyethylene Glycol 3350 [Miralax 119 gm Btl -] 17 gm PO DAILY PRN #1 bottle Rosuvastatin [Crestor -] 5 mg PO Q2D@2200 tablet 09/15/18 Sennosides [Senna] 2 tab PO DAILY #1 tablet 09/15/18 This patient is new to me today: No Emergency Visit: No Critical Care patient: No - Discharge Referral Referred to [facility] Med [facility].C[facility] No
[2018-09-15 14:59] VITALS: BP 136/76; PULSE 88; TEMP 97.9
--- NOTE | 2018-09-15 18:10 | PN ---
Progress Note (short form) - Note Progress Note: please follow up with Dr Gordillo as this is a service case Problem List - Problems (1) Therapeutic opioid induced constipation Code(s): K59.03 - DRUG INDUCED CONSTIPATION; T40.2X5A - ADVERSE EFFECT OF OTHER OPIOIDS, INITIAL ENCOUNTER
== END 2018-09-15 18:59 ==
LOC: JER 12:52 → JERBED 17:45 → J4S 09-13 13:50
PROVIDERS: ATTEND Internal Medicine
PROC: 3E0333Z Introduction of Anti-inflammatory into Peripheral Vein, Percutaneous Approach (ICD-10-PCS; principal; 2018-09-12)
PROC: 3E0337Z Introduction of Electrolytic and Water Balance Substance into Peripheral Vein, Percutaneous Approach (ICD-10-PCS; 2018-09-12)
DX: R07.89 Other chest pain (principal); E78.5 Hyperlipidemia, unspecified; F41.9 Anxiety disorder, unspecified; G89.4 Chronic pain syndrome; Z96.642 Presence of left artificial hip joint; M79.10 Myalgia, unspecified site; R14.0 Abdominal distension (gaseous); K59.03 Drug induced constipation; T40.2X5A Adverse effect of other opioids, initial encounter; Y92.89 Other specified places as the place of occurrence of the external cause
CPT/HCPCS: 36415; 71046-TC-FY; 74019-TC-FY; 76705-TC; 80053; 81003; 81015; 82550; 83605; 83690; 84484; 85025; 87086; 93005; 93010; 93306-TC; 96374; 97116-GP; 97161-GP; 99285-25; G0378; J7030

== ENCOUNTER 2018-10-08 11:53 | Emergency (ER) | payer OTHER ==
[2018-10-08 12:16] VITALS: BP 135/84; PULSE 120; TEMP 98.2; BMI 29.2
[2018-10-08] MEDS ORDERED: ONDANSETRON *ODT* 4 MG TABLET SL ONE (15:03)
[2018-10-08] MEDS ORDERED: ONDANSETRON *ODT* 4 MG TABLET ONE (15:13)
--- NOTE | 2018-10-08 15:52 | PDOC ---
History of Present Illness <TeenaEthan - Last Filed: 10/08/18 17:15> - General History Source: Patient Exam Limitations: Clinical Condition - History of Present Illness Initial Comments: 10/08/18 15:46 Patient with history of opiate Dependent and chronic body pains present with complaint of diffuse body pain which she describes as cramping pain all over her body and vaginal pain. Patient has been seen in the past for same symptoms with no findings. Patient being seen by pain management who discharge patient from care . Patient reported nausea but no vomiting. Patient reported she took excess Vicodin medication today and wants to be checked. Patient loud and screaming at staff and request that she needs to have full workup with blood work before she leaves and would not leave until full workup with blood and imaging is done on her. Timing/Duration: getting worse <Jhony Rojas - Last Filed: 10/10/18 12:50> - General Chief Complaint: Pain Stated Complaint: BODY ACHES/ABD PAIN Time Seen by Provider: 10/08/18 14:36 Past History <TeenaEthan - Last Filed: 10/08/18 17:15> - Past Medical History Anemia: No Asthma: No Cancer: No Cardiac Disorders: No CVA: No COPD: No CHF: No DVT: No Dementia: No Diabetes: No GI Disorders: No Disorders: No HTN: No Hypercholesterolemia: Yes Liver Disease: No Psychiatric Problems: Yes (ANXIETY) Seizures: No Thyroid Disease: No - Surgical History Abdominal Surgery: No Appendectomy: No Cardiac Surgery: No Cholecystectomy: No Lung Surgery: No Neurologic Surgery: No Orthopedic Surgery: Yes (Left hip replacement surgery) - Immunization History Immunization Up to Date: Yes - Suicide/Smoking/Psychosocial Hx Smoking History: Former smoker Have you smoked in the past 12 months: No If you are a former smoker, when did you quit?: 40 YRS AGO Information on smoking cessation initiated: No Hx Alcohol Use: No Drug/Substance Use Hx: No Substance Use Type: None Hx Substance Use Treatment: No <Jhony Rojas - Last Filed: 10/10/18 12:50> - Past Medical History Allergies/Adverse Reactions: Allergies Allergy/AdvReac Type Severity Reaction Status Date / Time No Known Allergies Allergy Verified 10/08/18 12:16 Home Medications: Ambulatory Orders LORazepam [Ativan] 0.5 mg PO TID 07/09/17 Hydrocodone/Acetaminophen [[place] 5-325 Tablet] 2 each PO TID PRN MDD 6 08/22/18 Amitriptyline HCl [Elavil -] 25 mg PO HS #0 tablet 09/15/18 Calcium Carbonate - 650 mg PO DAILY tablet 09/15/18 Cholecalciferol (Vitamin D3) [Vitamin D3 -] 1,000 unit PO DAILY tab 09/15/18 Docusate Sodium [Colace] 100 mg PO DAILY #1 capsule 09/15/18 Pantoprazole Sodium [Protonix -] 40 mg PO DAILY tablet.ec 09/15/18 Polyethylene Glycol 3350 [Miralax 119 gm Btl -] 17 gm PO DAILY PRN #1 bottle Rosuvastatin [Crestor -] 5 mg PO Q2D@2200 tablet 09/15/18 Sennosides [Senna] 2 tab PO DAILY #1 tablet 09/15/18 Review of Systems - Review of Systems Able to Perform ROS?: Yes Is the patient limited Portuguese proficient: No Constitutional: Yes: Fever HEENTM: No: Symptoms Reported Respiratory: No: Symptoms reported Cardiac (ROS): No: Symptoms Reported ABD/GI: Yes: Nausea. No: Symptoms Reported, Constipated, Diarrhea, Vomiting, Abdominal cramping Musculoskeletal: Yes: See HPI, Muscle Pain All Other Systems: Reviewed and Negative <Jhony Rojas - Last Filed: 10/10/18 12:50> *Physical Exam - Vital Signs Last Vital Signs Temp Pulse Resp BP Pulse Ox 98.2 F 120 H 19 135/84 97 10/08/18 12:08 10/08/18 12:08 10/08/18 12:08 10/08/18 12:08 10/08/18 12:08 <Ethan Dickinson - Last Filed: 10/08/18 17:15> - Vital Signs Last Vital Signs Temp Pulse Resp BP Pulse Ox 98.2 F 120 H 19 135/84 97 10/08/18 12:08 10/08/18 12:08 10/08/18 12:08 10/08/18 12:08 10/08/18 12:08 - Physical Exam Comments: 10/08/18 15:50 GENERAL: [The patient is awake, alert, and fully oriented, in no acute distress. ] HEAD: [Normal with no signs of trauma.] EYES: [Pupils equal, round and reactive to light, extraocular movements intact, sclera anicteric, conjunctiva clear.] ENT: [Ears normal, nares patent, oropharynx clear without exudates. Moist mucous membranes.] NECK: [Normal range of motion, supple without lymphadenopathy, JVD, or masses.] LUNGS: [Breath sounds equal, clear to auscultation bilaterally. No wheezes, and no crackles.] HEART: [Regular rate and rhythm, normal S1 and S2 without murmur, rub or gallop. ] ABDOMEN: [Soft, nontender, normoactive bowel sounds. No guarding, no rebound. No masses.] EXTREMITIES: [Normal range of motion, no edema. No clubbing or cyanosis. No cords, erythema, or tenderness.] NEUROLOGICAL: [Cranial nerves II through XII grossly intact. Normal speech, normal gait.] PSYCH: [Normal mood, normal affect.] SKIN: [Warm, Dry, normal turgor, no rashes or lesions noted.] General Appearance: Yes: Nourished, Appropriately Dressed. No: Apparent Distress <Jhony Rojas - Last Filed: 10/10/18 12:50> Moderate Sedation - Procedure Monitoring Vital Signs: Procedure Monitoring Vital Signs Temperature 98.2 F 10/08/18 12:08 Pulse Rate 120 H 10/08/18 12:08 Respiratory Rate 10/08/18 12:08 Blood Pressure 135/84 10/08/18 12:08 O2 Sat by Pulse Oximetry (%) 97 10/08/18 12:08 <Ethan Dickinson - Last Filed: 10/08/18 17:15> - Procedure Monitoring Vital Signs: Procedure Monitoring Vital Signs Temperature 98.2 F 10/08/18 12:08 Pulse Rate 120 H 10/08/18 12:08 Respiratory Rate 10/08/18 12:08 Blood Pressure 135/84 10/08/18 12:08 O2 Sat by Pulse Oximetry (%) 97 10/08/18 12:08 <Jhony Rojas - Last Filed: 10/10/18 12:50> ED Treatment Course - ADDITIONAL ORDERS Additional order review: Laboratory Results 10/08/18 10/08/18 15:49 15:49 Urine Color Yellow Urine Appearance Clear Urine pH 5.0 D Ur Specific [place] 1.026 Urine Protein Negative Urine Glucose (UA) Negative Urine Ketones Negative Urine Blood Negative Urine Nitrite Negative Urine Bilirubin Negative Urine Urobilinogen Negative Ur Leukocyte Esterase 2+ H Urine WBC (Auto) 5 Urine RBC (Auto) 1 Urine Mucus Rare Opiates Screen Positive A* Methadone Screen Negative Barbiturate Screen Negative Phencyclidine Screen Negative Ur Amphetamines Screen Negative MDMA (Ecstasy) Screen Negative Benzodiazepines Screen Negative Cocaine Screen Negative U Marijuana (THC) Screen Negative - Medications Given in the ED: ED Medications Discontinued Medications Generic Name Dose Route Start Last Admin Trade Name Freq PRN Reason Stop Dose Admin Ondansetron HCl 4 mg 10/08/18 15:03 10/08/18 15:14 Zofran Odt - SL 10/08/18 15:04 4 mg ONCE ONE Administration <Ethan Dickinson - Last Filed: 10/08/18 17:15> - LABORATORY CBC & Chemistry Diagram: 10/08/18 17:10 - Medications Given in the ED: ED Medications Discontinued Medications Generic Name Dose Route Start Last Admin Trade Name Freq PRN Reason Stop Dose Admin Ondansetron HCl 4 mg 10/08/18 15:03 10/08/18 15:14 Zofran Odt - SL 10/08/18 15:04 4 mg ONCE ONE Administration <Jhony Rojas - Last Filed: 10/10/18 12:50> Medical Decision Making - Medical Decision Making 10/08/18 15:51 Patient with history of complaint of chronic body pains on pain management present with complaint of diffuse body pains and vaginal pain. Patient took Vicodin at home and reported she took excess than prescribed. Patient complaining of whole body pains despite no visible deformity or swelling on exam..UA and urine tox labs done. Patient be discharged home to follow PCP if no significant findings on lab. 10/08/18 17:06 Utox shows positive opiates. UA with no significant findings. Chemistry lab unremarkable with normal LFTs and low serum acetaminophen level. Patient is stable for discharge for follow-up with PCP and pain management <Jhony Rojas - Last Filed: 10/10/18 12:50> *DC/Admit/Observation/Transfer <Ethan Dickinson - Last Filed: 10/08/18 17:15> - Discharge Dispostion Decision to Admit order: No <Jhony Rojas - Last Filed: 10/10/18 12:50> Diagnosis at time of Disposition: Total body pain, Opioid abuse - Discharge Dispostion Disposition: HOME Condition at time of disposition: Stable - Referrals Referrals: Billy Colby MD [Primary Care Provider] - Charmaine Whitfield MD [Staff Physician] - - Patient Instructions Additional Instructions: Follow-up with PCP and pain management for body pains. Issue of body pains is chronic and need follow-up on outpatient. Make appointment with PCP for follow- up. Consider calling Dr. Whitfield for an appointment for additional opinions regarding pain management. - Post Discharge Activity
[2018-10-08 16:12] LABS: URINE APPEARANCE CLEAR; URINE BILIRUBIN NEGATIVE (<2.0 mg/dL); URINE COLOR YELLOW; URINE GLUCOSE (UA) NEGATIVE (NEGATIVE); URINE KETONE NEGATIVE (NEGATIVE); URINE LEUK ESTERASE 2+ (NEGATIVE); URINE NITRITE NEGATIVE (NEGATIVE); URINE PROTEIN NEGATIVE (NEGATIVE); URINE UROBILINOGEN NEGATIVE mg/dL (0.2-1.0)
[2018-10-08 16:18] LABS: URINE MUCUS RARE
[2018-10-08 16:45] LABS: COCAINE, UR NEGATIVE ng/ml (CUTOFF=300); METHADONE, UR NEGATIVE ng/ml (CUTOFF=300); PHENCYCLIDINE,URINE NEGATIVE ng/ml (CUTOFF=25); URINE AMPHETAMINES NEGATIVE ng/ml (CUTOFF=500); URINE BARBITURATES NEGATIVE ng/ml (CUTOFF=200); URINE BENZODIAZEPINES NEGATIVE ng/ml (CUTOFF=200)
[2018-10-08 16:47] LABS: OPIATES, URI POSITIVE ng/ml (CUTOFF=300)
[2018-10-08 19:06] LABS: ALBUMIN 4.3 g/dl (3.4-5.0); ALK PHOS 97 U/L (45-117); ANION GAP 7 MMOL/L (8-16); BILIRUBIN,TOTAL 0.4 mg/dL (0.2-1); BLOOD UREA NITROGEN 21 mg/dL (7-18); CALCIUM 9.8 mg/dL (8.5-10.1); CHLORIDE 104 mmol/L (98-107); CO2 27 mmol/L (21-32); GLUCOSE,RANDOM 121 mg/dL (74-106); POTASSIUM 3.4 mmol/L (3.5-5.1); SGOT/AST 23 U/L (15-37); SGPT/ALT 41 U/L (13-61); SODIUM 139 mmol/L (136-145); TOT PROT 7.7 g/dl (6.4-8.2)
== END 2018-10-08 17:21 | disposition home or self-care (01) ==
LOC: JERFT 11:53
DX: R52 Pain, unspecified (principal); F11.10 Opioid abuse, uncomplicated; F41.9 Anxiety disorder, unspecified; E78.00 Pure hypercholesterolemia, unspecified
CPT/HCPCS: 36415; 80053; 80307; 81003; 81015; 87086; 99281-25; Q0162

== ENCOUNTER 2018-12-17 12:26 | Emergency (ER) | payer OTHER ==
[2018-12-17 12:56] VITALS: BMI 29.2
--- NOTE | 2018-12-17 13:45 | PDOC ---
History of Present Illness - General Chief Complaint: Psychiatric Stated Complaint: ANXIETY Time Seen by Provider: 12/17/18 13:45 History Source: Patient Exam Limitations: No Limitations - History of Present Illness Initial Comments: 12/17/18 13:49 58 year old female, with a significant past medical history of anxiety, hyperlipidemia, and chronic pain syndrome, somatization disorder and personality disorder who presents after she told her home aids that she had not eaten for 3 days, continued taking pills including vicodin and now had abdominal pain. The patient reports that she cannot move and she has pain/ burning primarily in her vaginal area. She is able to ambulate and walk at bedside. PCP: Billy oClby Denies SI, HI, visual or auditory hallucinations. Past History - Past Medical History Allergies/Adverse Reactions: Allergies Allergy/AdvReac Type Severity Reaction Status Date / Time No Known Allergies Allergy Verified 10/08/18 12:16 Home Medications: Ambulatory Orders LORazepam [Ativan] 0.5 mg PO TID 07/09/17 Hydrocodone/Acetaminophen [[place] 5-325 Tablet] 2 each PO TID PRN MDD 6 08/22/18 Amitriptyline HCl [Elavil -] 25 mg PO HS #0 tablet 09/15/18 Calcium Carbonate - 650 mg PO DAILY tablet 09/15/18 Cholecalciferol (Vitamin D3) [Vitamin D3 -] 1,000 unit PO DAILY tab 09/15/18 Docusate Sodium [Colace] 100 mg PO DAILY #1 capsule 09/15/18 Pantoprazole Sodium [Protonix -] 40 mg PO DAILY tablet.ec 09/15/18 Polyethylene Glycol 3350 [Miralax 119 gm Btl -] 17 gm PO DAILY PRN #1 bottle Rosuvastatin [Crestor -] 5 mg PO Q2D@2200 tablet 09/15/18 Sennosides [Senna] 2 tab PO DAILY #1 tablet 09/15/18 Anemia: No Asthma: No Cancer: No Cardiac Disorders: No CVA: No COPD: No CHF: No DVT: No Dementia: No Diabetes: No GI Disorders: No Disorders: No HTN: No Hypercholesterolemia: Yes Liver Disease: No Psychiatric Problems: Yes (ANXIETY) Seizures: No Thyroid Disease: No - Surgical History Abdominal Surgery: No Appendectomy: No Cardiac Surgery: No Cholecystectomy: No Lung Surgery: No Neurologic Surgery: No Orthopedic Surgery: Yes (Left hip replacement surgery) - Immunization History Immunization Up to Date: Yes - Suicide/Smoking/Psychosocial Hx Smoking History: Unknown if ever smoked Have you smoked in the past 12 months: No If you are a former smoker, when did you quit?: 40 YRS AGO Hx Alcohol Use: No Drug/Substance Use Hx: No Substance Use Type: None Hx Substance Use Treatment: No *Physical Exam - Vital Signs Last Vital Signs Temp Pulse Resp BP Pulse Ox 91 H 26 H 127/61 98 12/17/18 12:47 12/17/18 12:47 12/17/18 12:47 12/17/18 12:47 - Physical Exam Comments: 12/17/18 14:28 GENERAL: Awake, alert, and fully oriented, repeatedly yelling "I can't move" HEAD: No signs of trauma, normocephalic, atraumatic EYES: EOMI, sclera anicteric, conjunctiva clear ENT: oropharynx clear without exudates. Moist mucosa NECK: Normal ROM, supple LUNGS: No distress, speaks full sentences, clear to auscultation bilaterally HEART: Regular rate and rhythm, normal S1 and S2, no murmurs, rubs or gallops, peripheral pulses normal and equal bilaterally. ABDOMEN: Soft, + slight epigastric tender, normoactive bowel sounds. No guarding, no rebound. No masses EXTREMITIES : Normal inspection, Normal range of motion, no edema. No clubbing or cyanosis. NEUROLOGICAL: Cranial nerves II through XII grossly intact. Normal speech, no focal sensorimotor deficits SKIN: Warm, Dry, normal turgor, no rashes or lesions noted ED Treatment Course - LABORATORY CBC & Chemistry Diagram: 12/17/18 14:10 12/17/18 14:10 Medical Decision Making - Medical Decision Making 12/17/18 14:25 58 year old female, with a significant past medical history of anxiety, hyperlipidemia, and chronic pain syndrome, somatization disorder and personality disorder who presents after she told her home aids that she had not eaten for 3 days, continued taking pills including vicodin and now had abdominal pain. The patient reports that she cannot move and she has pain/ burning primarily in her vaginal area. She is able to ambulate and walk at bedside. ED Course: ddx ibnlt: pancreatitis vs ibs vs gastritis vs GERD vs cholecystisi vs cholelithaissi Patient will need psych evaluation as she is acutely anxious and unable to maintain appropriate conversation cbc, cmp, ekg, cxr, ua, utox, salycilate, acetominophen levels, utox will consult Dr. Santillan, psych Patient complains of abdominal pain but refuses CT scan labs wnl 12/17/18 15:[address] Santillan who will come see patient at 1800 12/17/18 16:09 Spoke with [facility] residents who reveiwed chart and noted the patient was seen here on 12/14/18 for vicodin overdose and had a negative workup and was sicharged home. The patient on reassessment expresses that she is not able to care for herself at home, her step sister moved out and she is not able to cook, clean, take her regular medications. 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 Discussed case with case workers who feel that she will likely be a candidate for placement in SNF due to inability to conduct ADLs 2/2 psychological disorders. 12/17/18 17:02 Patient agitated in the hallway dose ativan 1 po 12/17/18 18:10 [place] at bedside, evaluated patient. Patient does not need inaptient admission at this time. Will discharge home with follow up with home health service which she already plugged into. 12/17/18 18:26 Reassessment patient continued to complain about abdominal pain and wants to be admitted despite being medically cleared will order CT AP although patient initially refused, she does not have indication for admissions at this time and if she would like to stay overnight as she has requested, she well need further workup including urine and CT AP. if imaging negative pt can d/c home *DC/Admit/Observation/Transfer Diagnosis at time of Disposition: Anxiety, Unspecified abdominal pain - Discharge Dispostion Disposition: HOME Condition at time of disposition: Stable Decision to Admit order: No - Referrals - Patient Instructions Printed Discharge Instructions: DI for Abdominal Pain-Adult, DI for Anxiety -- Adult Additional Instructions: You were seen in the ED for complaints of diffuse abdominal pain and chronic burning in neck and vagina. In the ED you were evaluated with labwork but refused CT imaging and urine. Your results were unremarkable There does not appear to be an acute need for immediate hospitalization. You are advised to follow up with your Primary Care Physician within 1 week. Continue taking medications as prescribed. Follow up with your home aids. Return to the ED immediately if you experience hallucinations, suicidal or homicidal ideation, chest pain, shortness of breath or loss of consciousness. - Post Discharge Activity
[2018-12-17 14:30] LABS: BASO % 0.3 % (0-2.0); EOS % 0.4 % (0-4.5); HEMATOCRIT 45.6 % (32.4-45.2); HEMOGLOBIN 15.2 GM/dL (10.7-15.3); LYMPH % 30.6 % (8-40); MCH 29.8 pg (25.7-33.7); MCHC 33.2 g/dl (32.0-36.0); MEAN CELL VOLUME 89.8 fl (80-96); MEAN PLT VOLUME 8.5 fl (7.5-11.1); MONO % 7.3 % (3.8-10.2); NEUT % 61.4 % (42.8-82.8); PLATELET COUNT 222 K/MM3 (134-434); RBC 5.08 M/mm3 (3.60-5.2); RDW 14.3 % (11.6-15.6); WHITE BLOOD COUNT 7.9 K/mm3 (4.0-10.0)
[2018-12-17 14:47] LABS: ALBUMIN 3.9 g/dl (3.4-5.0); ALK PHOS 81 U/L (45-117); ANION GAP 9 MMOL/L (8-16); BILIRUBIN,TOTAL 0.4 mg/dL (0.2-1); BLOOD UREA NITROGEN 12 mg/dL (7-18); CALCIUM 9.5 mg/dL (8.5-10.1); CHLORIDE 107 mmol/L (98-107); CO2 26 mmol/L (21-32); CREATININE 0.7 mg/dL (0.55-1.3); GLUCOSE,RANDOM 105 mg/dL (74-106); POTASSIUM 3.4 mmol/L (3.5-5.1); SGOT/AST 10 U/L (15-37); SGPT/ALT 21 U/L (13-61); SODIUM 142 mmol/L (136-145)
[2018-12-17 15:32] LABS: LIPASE 203 U/L (73-393)
--- NOTE | 2018-12-17 15:52 | PDOC ---
Documentation entered by Marija Rasheed SCRIBE, acting as scribe for Sheri Todd MD. Sheri Todd MD: This documentation has been prepared by the ginaibe, Marija Rasheed SCRIBE, under my direction and personally reviewed by me in its entirety. I confirm that the documentation accurately reflects all work, treatment, procedures, and medical decision making performed by me. Attending Attestation - Resident Resident Name: Sophie Choi - ED Attending Attestation I have performed the following: I have examined & evaluated the patient, The case was reviewed & discussed with the resident, I agree w/resident's findings & plan, Exceptions are as noted - HPI HPI: 12/17/18 15:10 VERY POOR HISTORIAN 12/17/18 15:45 The patient is a 58-year-old female with a past medical history significant for anxiety, HLD, and chronic pain (on Vicodin) presents to the emergency department via EMS with abdominal pain and decrease appetite. The patient told her caseworkers that shes been having abdominal pain, and hasnt been eating. Care workers called EMS and sent the patient to the ER for evaluation. The patient reports she is unable to move, states its an internal feeling. The patient reports an additional complaint of vaginal pulling, a single episode of brownish emesis, and diarrhea. The patient reports secondary to the symptoms , and she is unable to do her ADLs. Allergies: NLDA PCP: Billy Colby ([facility]). - Physicial Exam PE: GENERAL: The patient is in no acute distress. patient is loud. ENT: Ears normal, nares patent, oropharynx clear without exudates. Moist mucous membranes. NECK: Normal range of motion, supple, no nuchal rigidity LUNGS: Breath sounds equal, clear to auscultation bilaterally. No wheezes, and no crackles. HEART: Regular rate and rhythm, normal S1 and S2 without murmur, rub or gallop. ABDOMEN: Soft, nontender. No guarding, no rebound. No masses palpable. EXTREMITIES: Normal range of motion, no edema. NEUROLOGICAL: awake, alert. Moving all extremities. Normal speech. No focal neurological deficits. SKIN: Warm, Dry, normal turgor, no rashes or lesions noted. 12/17/18 15:46 - Medical Decision Making 12/17/18 14:[address] Santillan at [phone], left a voicemail, waiting for a call back. 12/17/18 15:[address] Santillan, he will see the patient at 6:00 pm. 12/17/18 15:12 Pt is awake and alert Pt is screaming about being 12/17/18 15:48 Laboratory Tests 12/17/18 12/17/18 14:10 14:10 WBC 7.9 Hgb 15.2 Hct 45.6 H D Plt Count 222 BUN 12 Creatinine 0.7 Lipase 203 Salicylates < 1.7 L Acetaminophen < 2.0 L EKG - NSR rate of 95 bpm, axis nml, intervals nml, no st elevation or depression , t waves upright Pt reports that she has been to [facility] multiple times Is s/p CT abd and Xray C spine and lumbar spine Pt tells me that she can no longer care for herself, she would like to be admitted to a nursing facility Call placed to [facility] to confirm imaging findings Pt was seen at [facility] for s drug over dose (Vicodin) 12/17/18 15:52 12/17/18 17:26 Call placed to hospitalist Dr Banks has reviewed this chart If patient does not have a medical indication for admission, she can not be admitted I have explained that this patient can not care for herself at home, spoke with case management who stated pt could be placed but will need to be admitted Per Dr. Banks, this is not an indication for admission Awaiting Dr Santillan evaluation Pt agitated, given Ativan 1mg po
--- NOTE | 2018-12-17 16:13 | EKG ---
Test Reason : Blood Pressure : / mmHG Vent. Rate : 095 BPM Atrial Rate : 095 BPM P-R Int : 142 ms QRS Dur : 078 ms QT Int : 348 ms P-R-T Axes : 045 055 033 degrees QTc Int : 437 ms NORMAL SINUS RHYTHM POSSIBLE LEFT ATRIAL ENLARGEMENT CANNOT RULE OUT ANTERIOR INFARCT , AGE UNDETERMINED ABNORMAL ECG WHEN COMPARED WITH ECG OF 12-SEP-2018 13:19, NO SIGNIFICANT CHANGE WAS FOUND Confirmed by LOWELL PIERRE, YOGI ([id number]) on 12/17/2018 4:12:36 PM Referred By: Confirmed By:YOGI ETEINNE MD
[2018-12-17] MEDS ORDERED: ONDANSETRON *ODT* 4 MG TABLET SL ONE (17:00)
[2018-12-17] MEDS ORDERED: LORazepam 1 MG TABLET PO ONE (17:02)
[2018-12-17] MEDS ORDERED: ONDANSETRON *ODT* 4 MG TABLET ONE (17:02)
[2018-12-17] MEDS ORDERED: LORazepam 0.5 MG TABLET ONE (17:19)
--- NOTE | 2018-12-17 18:15 | CON.PSY ---
Psychiatry Consult Chief Complaint: I am not a Psych patient. I have a lot of Pain. . No body wants to help me. I have pain all over. patient tends to abuse Vicodins. Symptoms: reports: Restlessness - Previous Psychiatric Treatment Outpatient: More than 6 mos ago Inpatient: None - Previous Substance Abuse Treatment Outpatient: None Inpatient: None - Reason for Previous Treatment Reason for Previous Treatment: Conduct Disorder, Drug Abuse - Allergies Allergies: Allergies Allergy/AdvReac Type Severity Reaction Status Date / Time No Known Allergies Allergy Verified 10/08/18 12:16 - Current Living Status Usual Living Arrangement: Alone - Current Mental Status Evaluation Appearance: Well Groomed Attitude: Cooperative - Affect Affect: Expansive Appropriateness: Appropriate to Content - Mood Mood: Irritable - Speech/Language Expressive: Coherent - Psychomotor Activity Psychomotor Activity: Hyperactive - Thought Process Thought Process: Intact - Thought Content Hallucinations: Absent Delusions: Absent - Self Perception Self Perception: No Impairment - Cognition Attention: Alert Orientation: Time Memory, Immediate Recall: Intact Memory, Short Term: 3/3 Memory, Remote with Promptin/3 - Concentration Serial Sevens Intact: Yes Simple Calculations Intact: Yes - Abstraction Proverb Interpretation: Intact Judgement: Minimally Impaired - Insight Insight: Intact - Impulse Control Impulse Control: Minimally Impaired - Suicidal Ideation Suicidal Ideation: No - Homicidal Ideation Homicidal Ideation: No Assessment/Plan 1) Patient is not Psychotic or delusional at this time. 2) Prescription drug abuse. 3) Patient has the Mental Capacity to make decisions at5 this time. 4) Discharge home when medically clear.
--- NOTE | 2018-12-17 19:24 | PDOC ---
*Physical Exam - Vital Signs Last Vital Signs Temp Pulse Resp BP Pulse Ox 91 H 26 H 127/61 98 12/17/18 12:47 12/17/18 12:47 12/17/18 12:47 12/17/18 12:47 ED Treatment Course - LABORATORY CBC & Chemistry Diagram: 12/17/18 14:10 12/17/18 14:10 - ADDITIONAL ORDERS Additional order review: Laboratory Results 12/17/18 14:10 Sodium 142 Potassium 3.4 L Chloride 107 Carbon Dioxide 26 Anion Gap 9 BUN 12 Creatinine 0.7 Est GFR (CKD-EPI)AfAm 109.91 Est GFR (CKD-EPI)NonAf 94.84 Random Glucose 105 Calcium 9.5 Total Bilirubin 0.4 AST 10 L ALT 21 Alkaline Phosphatase 81 Total Protein 7.0 Albumin 3.9 Lipase 203 Salicylates < 1.7 L Acetaminophen < 2.0 L 12/17/18 14:10 RBC 5.08 MCV 89.8 MCHC 33.2 RDW 14.3 MPV 8.5 Neutrophils % 61.4 D Lymphocytes % 30.6 D Monocytes % 7.3 Eosinophils % 0.4 Basophils % 0.3 - Medications Given in the ED: ED Medications Discontinued Medications Generic Name Dose Route Start Last Admin Trade Name Freq PRN Reason Stop Dose Admin Lorazepam 1 mg 12/17/18 17:02 12/17/18 17:25 Ativan - PO 12/17/18 17:03 1 mg ONCE ONE Administration Ondansetron HCl 4 mg 12/17/18 17:00 12/17/18 17:04 Zofran Odt - SL 12/17/18 17:01 4 mg ONCE ONE Administration Medical Decision Making - Medical Decision Making 58 year old female, with a significant past medical history of anxiety, hyperlipidemia, and chronic pain syndrome, somatization disorder and personality disorder who presents after she told her home aids that she had not eaten for 3 days, continued taking pills including vicodin and now had abdominal pain. Pending CT report 12/17/18 19:23 CTAP: "Sequential axial images were obtained from the domes of the diaphragm through the symphysis pubis. The study is limited without the use of any contrast material. The lung bases are clear. The liver, spleen, pancreas, adrenal glands and kidneys demonstrate no significant abnormalities. The gallbladder is clear. There is no evidence of intra-abdominal or retroperitoneal lymphadenopathy or fluid collections. There is no evidence of pneumoperitoneum, bowel obstruction or intra-abdominal abscess. There is no CT evidence of acute appendicitis or diverticulitis. Examination of the pelvis demonstrates no evidence of pelvic masses, fluid collections or lymphadenopathy. There is no evidence of acute bony pathology. The patient is S/ P total left hip replacement. IMPRESSION: No evidence of acute pathology within the abdomen or pelvis. Please see above discussion. " As patient has been medically cleared, plan to discharge 12/17/18 20:10 *DC/Admit/Observation/Transfer Diagnosis at time of Disposition: Anxiety, Unspecified abdominal pain - Discharge Dispostion Disposition: HOME Condition at time of disposition: Stable - Referrals - Patient Instructions Printed Discharge Instructions: DI for Abdominal Pain-Adult, DI for Anxiety -- Adult Additional Instructions: You were seen in the ED for complaints of diffuse abdominal pain and chronic burning in neck and vagina. In the ED you were evaluated with labwork but refused to give a urine sample. Your results were unremarkable The CT report was within normal limits. There does not appear to be an acute need for immediate hospitalization. You are advised to follow up with your Primary Care Physician within 1 week. You workup is not complete until you do so. Continue taking medications as prescribed. Follow up with your home aids. Return to the ED immediately if you experience hallucinations, suicidal or homicidal ideation, chest pain, shortness of breath or loss of consciousness. - Post Discharge Activity
[2018-12-17 20:37] VITALS: BP 135/80; PULSE 80; TEMP 98.3
== END 2018-12-17 20:37 | disposition home or self-care (01) ==
LOC: JER 12:26
DX: R10.13 Epigastric pain (principal); F41.9 Anxiety disorder, unspecified; F60.89 Other specific personality disorders; E78.5 Hyperlipidemia, unspecified; G89.4 Chronic pain syndrome; F45.9 Somatoform disorder, unspecified
CPT/HCPCS: 36415; 74176-TC; 80053; 80307; 83690; 85025; 93005; 93010; 99283-25; Q0162

== ENCOUNTER 2019-03-18 15:29 | Inpatient (IN) | payer OTHER ==
[2019-03-18 15:44] VITALS: BMI 29.2
--- NOTE | 2019-03-18 15:49 | PDOC ---
Rapid Medical Evaluation Time Seen by Provider: 03/18/19 15:40 Medical Evaluation: Allergies Allergy/AdvReac Type Severity Reaction Status Date / Time No Known Allergies Allergy Verified 03/18/19 15:41 Vital Signs Temp Pulse Resp BP Pulse Ox 97.8 F 84 16 132/84 95 03/18/19 15:41 03/18/19 15:41 03/18/19 15:41 03/18/19 15:41 03/18/19 15:41 03/18/19 15:43 Pt c/o: generalized pain to hips and legs, sent by dr ambrosio for ?sx and rehab Pt on brief exam: vss, pt sitting in wheelchair, very anxious and moving around in wheelchair Pt ordered for: none. consult placed to dr ambrosio Pt to proceed to the ED 03/18/19 15:49 Discharge Disposition - Diagnosis Total body pain - Referrals Referrals: ON STAFF,NOT [Primary Care Provider] - - Patient Instructions - Post Discharge Activity
[2019-03-18 19:29] LABS: ALBUMIN 4.1 g/dl (3.4-5.0); BILIRUBIN,TOTAL 0.3 mg/dL (0.2-1); BLOOD UREA NITROGEN 15.7 mg/dL (7-18); CALCIUM 9.6 mg/dL (8.5-10.1); CREATININE 0.8 mg/dL (0.55-1.3); POTASSIUM 4.2 mmol/L (3.5-5.1); TOT PROT 7.3 g/dl (6.4-8.2)
[2019-03-18 19:42] LABS: BASO % 0.1 % (0-2.0); EOS % 0.6 % (0-4.5); HEMATOCRIT 44.8 % (32.4-45.2); HEMOGLOBIN 14.8 GM/dL (10.7-15.3); LYMPH % 29.5 % (8-40); MCH 29.1 pg (25.7-33.7); MCHC 32.9 g/dl (32.0-36.0); MEAN CELL VOLUME 88.3 fl (80-96); MEAN PLT VOLUME 9.3 fl (7.5-11.1); MONO % 6.1 % (3.8-10.2); NEUT % 63.7 % (42.8-82.8); PLATELET COUNT 214 K/MM3 (134-434); RBC 5.07 M/mm3 (3.60-5.2); RDW 14.6 % (11.6-15.6); WHITE BLOOD COUNT 8.7 K/mm3 (4.0-10.0)
--- NOTE | 2019-03-18 20:12 | PDOC ---
Documentation entered by Marija Rasheed SCRIBE, acting as scribe for Graciela Fang MD. Graciela Fang MD: This documentation has been prepared by the Wili bryant Lincy, SCRIBE, under my direction and personally reviewed by me in its entirety. I confirm that the documentation accurately reflects all work, treatment, procedures, and medical decision making performed by me. History of Present Illness - General Chief Complaint: Pain Stated Complaint: SENT BY FOR ADMITANCE Time Seen by Provider: 03/18/19 15:40 History Source: Patient, Care Provider Exam Limitations: No Limitations - History of Present Illness Initial Comments: 03/18/19 18:51 The patient is a 59-year-old female with a past medical history significant for s/p L. hip surgery (6 years ago), and chronic pain was sent to the emergency department by Dr. Quevedo for evaluation for chronic pain. The patient reports following up with Dr. Quevedo earlier, who referred the patient to the ER for admission and further management for the pain. The patient reports shes had generalized pain all over her body, states its pulling, burning and tightening in quality. The patient reports she is unable to function secondary to the pain. Allergies: NKDA Past History - Past Medical History Allergies/Adverse Reactions: Allergies Allergy/AdvReac Type Severity Reaction Status Date / Time No Known Allergies Allergy Verified 03/18/19 15:41 Home Medications: Ambulatory Orders LORazepam [Ativan] 0.5 mg PO TID 07/09/17 Hydrocodone/Acetaminophen [[place] 5-325 Tablet] 2 each PO TID PRN MDD 6 08/22/18 Amitriptyline HCl [Elavil -] 25 mg PO HS #0 tablet 09/15/18 Calcium Carbonate - 650 mg PO DAILY tablet 09/15/18 Cholecalciferol (Vitamin D3) [Vitamin D3 -] 1,000 unit PO DAILY tab 09/15/18 Docusate Sodium [Colace] 100 mg PO DAILY #1 capsule 09/15/18 Pantoprazole Sodium [Protonix -] 40 mg PO DAILY tablet.ec 09/15/18 Polyethylene Glycol 3350 [Miralax 119 gm Btl -] 17 gm PO DAILY PRN #1 bottle Rosuvastatin [Crestor -] 5 mg PO Q2D@2200 tablet 09/15/18 Sennosides [Senna] 2 tab PO DAILY #1 tablet 09/15/18 Anemia: No Asthma: No Cancer: No Cardiac Disorders: No CVA: No COPD: No CHF: No DVT: No Dementia: No Diabetes: No GI Disorders: No Disorders: No HTN: No Hypercholesterolemia: Yes Liver Disease: No Psychiatric Problems: Yes (ANXIETY) Seizures: No Thyroid Disease: No - Surgical History Abdominal Surgery: No Appendectomy: No Cardiac Surgery: No Cholecystectomy: No Lung Surgery: No Neurologic Surgery: No Orthopedic Surgery: Yes (Left hip replacement surgery) - Immunization History Immunization Up to Date: Yes - Suicide/Smoking/Psychosocial Hx Smoking History: Never smoked Have you smoked in the past 12 months: No If you are a former smoker, when did you quit?: 40 YRS AGO Information on smoking cessation initiated: No Hx Alcohol Use: No Drug/Substance Use Hx: No Substance Use Type: None Hx Substance Use Treatment: No Review of Systems - Review of Systems Able to Perform ROS?: Yes Comments:: 03/18/19 18:53 GENERAL/CONSTITUTIONAL: +generalized pain. No fever or chills. HEAD, EYES, EARS, NOSE AND THROAT: No change in vision. No ear pain or discharge. No sore throat. CARDIOVASCULAR: No chest pain or shortness of breath. RESPIRATORY: No cough, wheezing, or hemoptysis. GASTROINTESTINAL: No nausea, vomiting, diarrhea or constipation. GENITOURINARY: No dysuria, frequency, or change in urination. MUSCULOSKELETAL: +hip pain. No neck or back pain. SKIN: No rash NEUROLOGIC: No headache, vertigo, loss of consciousness, or change in strength/ sensation. ENDOCRINE: No increased thirst. No abnormal weight change. HEMATOLOGIC/LYMPHATIC: No anemia, easy bleeding, or history of blood clots. ALLERGIC/IMMUNOLOGIC: No hives or skin allergy. *Physical Exam - Vital Signs Last Vital Signs Temp Pulse Resp BP Pulse Ox 97.8 F 84 16 132/84 95 03/18/19 15:41 03/18/19 15:41 03/18/19 15:41 03/18/19 15:41 03/18/19 15:41 - Physical Exam Comments: 03/18/19 18:52 GENERAL: Awake, alert, and fully oriented, in no acute distress LUNGS: Breath sounds equal, clear to auscultation bilaterally. No wheezes, and no crackles HEART: Regular rate and rhythm, normal S1 and S2, no murmurs, rubs or gallops ABDOMEN: Soft, nontender, normoactive bowel sounds. No guarding, no rebound. No masses NEUROLOGICAL: Normal mood and affect. Cranial nerves grossly intact. SKIN: Warm, Dry, normal turgor, no rashes or lesions noted. ED Treatment Course - LABORATORY CBC & Chemistry Diagram: 03/18/19 18:30 03/18/19 18:30 - ADDITIONAL ORDERS Additional order review: Laboratory Results 03/18/19 18:30 Sodium 142 Potassium 4.2 Chloride 106 Carbon Dioxide 29 Anion Gap 7 L BUN 15.7 Creatinine 0.8 Est GFR (CKD-EPI)AfAm 92.87 Est GFR (CKD-EPI)NonAf 80.13 Random Glucose 108 H Calcium 9.6 Total Bilirubin 0.3 AST 16 ALT 23 Alkaline Phosphatase 95 Total Protein 7.3 Albumin 4.1 - RADIOLOGY Radiology Studies Ordered: Category Date Time Status CHEST PA & LAT [RAD] Stat Radiology 03/18/19 18:23 Completed Medical Decision Making - Medical Decision Making 03/18/19 20:02 Pt presents to the ED after sent in for direct admission for acute exacerbation of her chronic pain. Patient was sent in by Dr. Lewis and accepted by Dr. Neff for admission. PAteint denies complaints other than chronic pain. As per the patient, she was sent in for rehab placement to prepare her for surgery since she is unable to carry out her adls at home. *DC/Admit/Observation/Transfer Diagnosis at time of Disposition: Total body pain - Referrals - Patient Instructions - Post Discharge Activity
--- NOTE | 2019-03-18 20:15 | HP ---
Admitting History and Physical - Admission Chief Complaint: geenralized pain History of Present Illness: 59-year-old female with a past medical history significant for s/p L. hip surgery (6 years ago), and chronic pain was sent to the emergency department by Dr. Quevedo for evaluation for chronic pain. The patient reports following up with Dr. Quevedo earlier, who referred the patient to the ER for admission and further management for the pain. denies palpitations, nausea, vomiting, diarrhea History Source: Patient Limitations to Obtaining History: No Limitations - Past Medical History [employer]: Yes: Other (chronic pain) Cardiovascular: Yes: Hyperlipdemia Psych: Yes: Anxiety, Bipolar Musculoskeletal: Yes: Osteoarthritis, Other (left hip replacement) - Past Surgical History Past Surgical History: Yes: Joint Replacement - Smoking History Smoking history: Never smoked Have you smoked in the past 12 months: No If you are a former smoker, when did you quit?: 40 YRS AGO - Alcohol/Substance Use Hx Alcohol Use: No History of Substance Use: reports: None - Social History ADL: Family Assistance History of Recent Travel: No Home Medications - Allergies Allergies/Adverse Reactions: Allergies Allergy/AdvReac Type Severity Reaction Status Date / Time No Known Allergies Allergy Verified 03/18/19 15:41 - Home Medications Home Medications: Ambulatory Orders LORazepam [Ativan] 0.5 mg PO TID 07/09/17 Hydrocodone/Acetaminophen [[place] 5-325 Tablet] 2 each PO TID PRN MDD 6 08/22/18 Amitriptyline HCl [Elavil -] 25 mg PO HS #0 tablet 09/15/18 Calcium Carbonate - 650 mg PO DAILY tablet 09/15/18 Cholecalciferol (Vitamin D3) [Vitamin D3 -] 1,000 unit PO DAILY tab 09/15/18 Docusate Sodium [Colace] 100 mg PO DAILY #1 capsule 09/15/18 Pantoprazole Sodium [Protonix -] 40 mg PO DAILY tablet.ec 09/15/18 Polyethylene Glycol 3350 [Miralax 119 gm Btl -] 17 gm PO DAILY PRN #1 bottle Rosuvastatin [Crestor -] 5 mg PO Q2D@2200 tablet 09/15/18 Sennosides [Senna] 2 tab PO DAILY #1 tablet 09/15/18 Family Disease History - Family Disease History Family History: Unremarkable Review of Systems - Review of Systems Constitutional: reports: Weakness Eyes: reports: No Symptoms HENT: reports: No Symptoms Neck: reports: Pain on Movement Cardiovascular: reports: No Symptoms Respiratory: reports: No Symptoms Gastrointestinal: reports: No Symptoms Genitourinary: reports: No Symptoms Musculoskeletal: reports: Back Pain, Decreased ROM, Extremity Pain, Joint Pain, Muscle Pain Integumentary: reports: No Symptoms Neurological: reports: No Symptoms Endocrine: reports: No Symptoms Hematology/Lymphatic: reports: No Symptoms Psychiatric: reports: Anxiety Pain Intensity: 8 Physical Examination Vital Signs: Vital Signs Temperature 97.8 F 03/18/19 15:41 Pulse Rate 84 03/18/19 15:41 Respiratory Rate 16 03/18/19 15:41 Blood Pressure 132/84 03/18/19 15:41 O2 Sat by Pulse Oximetry (%) 95 03/18/19 15:41 Constitutional: Yes: Well Nourished, No Distress, Calm Eyes: Yes: WNL HENT: Yes: WNL Neck: Yes: WNL Cardiovascular: Yes: WNL Respiratory: Yes: WNL Gastrointestinal: Yes: WNL Renal/: Yes: WNL Musculoskeletal: Yes: Back Pain, Joint Stiffness Extremities: Yes: WNL Edema: No Peripheral Pulses WNL: Yes Integumentary: Yes: WNL Neurological: Yes: WNL ...Motor Strength: WNL Psychiatric: Yes: Agitated Labs: CBC, BMP 03/18/19 18:30 Assessment/Plan 59-year-old female with a past medical history significant for s/p L. hip surgery (6 years ago), and chronic pain was sent to the emergency department by Dr. Quevedo for evaluation for chronic pain. The patient reports following up with Dr. Quevedo earlier, who referred the patient to the ER for admission and further management for the pain. cont pain management. ortho eval requested. -major anxiety and depression: on ativan, amitriptyline. -HLD: crestor. -oral diet -OOB as tolerated will follow up in AM
[2019-03-18] MEDS ORDERED: SENNOSIDES 8.6MG TABLET (FP) PO ONE (20:24)
[2019-03-18] MEDS ORDERED: DOCUSATE SODIUM 100 MG CAPSULE (FP) PO ONE (20:25)
[2019-03-18] MEDS ORDERED: AMITRIPTYLINE HCL 25 MG TABLET (FP) ONE (20:25)
[2019-03-18] MEDS: AMITRIPTYLINE HCL 25 MG TABLET (FP) PO SCH (21:00)
[2019-03-18] MEDS: SENNOSIDES 8.6MG TABLET (FP) PO SCH (21:00)
[2019-03-18] MEDS: DOCUSATE SODIUM 100 MG CAPSULE (FP) PO SCH (21:00)
[2019-03-18] MEDS ORDERED: oxyCODONE HCL 5 MG TABLET PO PRN (21:27)
[2019-03-18] MEDS ORDERED: ACETAMINOPHEN 325 MG TABLET (FP) PO PRN (21:27)
[2019-03-18] MEDS: ROSUVASTATIN CA 20 MG TABLET (FP) PO SCH (23:50)
[2019-03-18] MEDS ORDERED: ACETAMINOPHEN 325 MG TABLET (FP) ONE (23:57)
[2019-03-19] MEDS: LORazepam 0.5 MG TABLET PO PRN ×2 (01:56→13:42)
[2019-03-19] MEDS: DOCUSATE SODIUM 100 MG CAPSULE (FP) PO SCH ×3 (05:08→21:10)
[2019-03-19 09:34] LABS: BASO % 0.2 % (0-2.0); HEMATOCRIT 39.4 % (32.4-45.2); HEMOGLOBIN 13.1 GM/dL (10.7-15.3); LYMPH % 37.7 % (8-40); MCH 29.4 pg (25.7-33.7); MCHC 33.3 g/dl (32.0-36.0); MEAN CELL VOLUME 88.2 fl (80-96); MEAN PLT VOLUME 8.7 fl (7.5-11.1); MONO % 4.8 % (3.8-10.2); NEUT % 56.3 % (42.8-82.8); PLATELET COUNT 176 K/MM3 (134-434); RBC 4.47 M/mm3 (3.60-5.2); RDW 14.2 % (11.6-15.6); WHITE BLOOD COUNT 5.1 K/mm3 (4.0-10.0)
[2019-03-19 10:15] LABS: BLOOD UREA NITROGEN 12.8 mg/dL (7-18); CREATININE 0.7 mg/dL (0.55-1.3); POTASSIUM 3.8 mmol/L (3.5-5.1)
[2019-03-19] MEDS: PANTOPRAZOLE 40 MG TABLET (FP) PO SCH (10:39)
[2019-03-19] MEDS: CHOLECALCIFEROL (VIT D3) 1,000 UNIT (25 MCG) TABLET PO SCH (10:39)
[2019-03-19] MEDS ORDERED: ONDANSETRON *ODT* 4 MG TABLET SL PRN (10:57)
--- NOTE | 2019-03-19 11:46 | EKG ---
Test Reason : Blood Pressure : / mmHG Vent. Rate : 076 BPM Atrial Rate : 076 BPM P-R Int : 140 ms QRS Dur : 080 ms QT Int : 372 ms P-R-T Axes : 054 046 039 degrees QTc Int : 418 ms NORMAL SINUS RHYTHM NORMAL ECG WHEN COMPARED WITH ECG OF 17-DEC-2018 15:04, NO SIGNIFICANT CHANGE WAS FOUND Confirmed by YOGI ETIENNE MD ([id number]) on 03/19/2019 11:45:43 AM Referred By: Confirmed By:YOGI ETIENNE MD
[2019-03-19] MEDS: SODIUM CHLORIDE 0.45% 1,000 ML IV SCH (12:28)
--- NOTE | 2019-03-19 13:48 | PN ---
Progress Note, Physician - Current Medication List Current Medications: Active Medications Acetaminophen (Tylenol -) 325 mg PO Q6H PRN PRN Reason: PAIN LEVEL 7 - 10 Last Admin: 03/19/19 00:00 Dose: 325 mg Amitriptyline HCl (Elavil -) [address] [facility] Last Admin: 03/18/19 21:00 Dose: 25 mg Cholecalciferol (Vitamin D3 -) 1,000 unit PO DAILY [facility] Last Admin: 03/19/19 10:39 Dose: 1,000 unit Docusate Sodium (Colace -) 100 mg PO TID [facility] Last Admin: 03/19/19 13:42 Dose: 100 mg Sodium Chloride (1/2 Normal Saline) 1,000 mls @ 75 mls/hr IV ASDIR [facility] Last Admin: 03/19/19 12:28 Dose: 75 mls/hr Lorazepam (Ativan -) 0.5 mg PO Q8H PRN PRN Reason: ANXIETY Last Admin: 03/19/19 13:42 Dose: 0.5 mg Ondansetron HCl (Zofran Odt -) 4 mg SL Q6H PRN PRN Reason: NAUSEA Oxycodone HCl (Roxicodone -) 5 mg PO Q6H PRN PRN Reason: PAIN LEVEL 7 - 10 Pantoprazole Sodium (Protonix -) 40 mg PO DAILY [facility] Last Admin: 03/19/19 10:39 Dose: 40 mg Rosuvastatin Calcium (Crestor -) [address] [facility] Last Admin: 03/18/19 23:50 Dose: 20 mg Senna (Senna -) [address] [facility] Last Admin: 03/18/19 21:00 Dose: 2 tab - Objective Vital Signs: Vital Signs Temperature 98 F 03/19/19 06:10 Pulse Rate 62 03/19/19 06:10 Respiratory Rate 18 03/19/19 06:10 Blood Pressure 110/70 03/19/19 06:10 O2 Sat by Pulse Oximetry (%) 99 03/19/19 01:13 Labs: CBC, BMP 03/19/19 09:04 03/19/19 09:04 Assessment/Plan 59-year-old female with a past medical history significant for s/p L. hip surgery (6 years ago), and chronic pain was sent to the emergency department by Dr. Quevedo for evaluation for chronic pain. The patient reports following up with Dr. Quevedo earlier, who referred the patient to the ER for admission and further management for the pain. cont pain management. ortho eval requested. -major anxiety and depression: on ativan, amitriptyline. -HLD: crestor. -oral diet -OOB as tolerated -DC to [facility] planned for Friday. assessment and plan discussed at length with pt labs and meds reviewed phone calls answered throughout the day 25 min
[2019-03-19] MEDS ORDERED: MAG HYDROX/AL HYDROX/SIMETH 30 ML UNIT-DOSE CUP PO PRN (15:32)
[2019-03-19] MEDS ORDERED: CYCLOBENZAPRINE HCL 10 MG TABLET (FP) PO PRN (19:49)
[2019-03-19] MEDS ORDERED: ACETAMINOPHEN 325 MG TABLET (FP) PO PRN (19:50)
[2019-03-19] MEDS: AMITRIPTYLINE HCL 25 MG TABLET (FP) PO SCH (21:11)
[2019-03-19] MEDS: ROSUVASTATIN CA 20 MG TABLET (FP) PO SCH (21:11)
[2019-03-19] MEDS: BUPRENORPHINE/NALOXONE 2 MG/0.5 MG FILM PACKET SL SCH (21:12)
[2019-03-19] MEDS: SENNOSIDES 8.6MG TABLET (FP) PO SCH (21:12)
[2019-03-20] MEDS: SODIUM CHLORIDE 0.45% 1,000 ML IV SCH ×2 (01:40→14:00)
[2019-03-20] MEDS: BUPRENORPHINE/NALOXONE 2 MG/0.5 MG FILM PACKET SL SCH ×3 (05:43→22:13)
[2019-03-20] MEDS: DOCUSATE SODIUM 100 MG CAPSULE (FP) PO SCH ×3 (05:43→21:39)
[2019-03-20] MEDS: POLYETHYLENE GLYCOL 3350 119 GM BTL PO PRN ×2 (10:48→22:27)
[2019-03-20] MEDS: PANTOPRAZOLE 40 MG TABLET (FP) PO SCH (10:48)
[2019-03-20] MEDS: CHOLECALCIFEROL (VIT D3) 1,000 UNIT (25 MCG) TABLET PO SCH (10:48)
--- NOTE | 2019-03-20 17:11 | PN ---
Progress Note, Physician - Current Medication List Current Medications: Active Medications Acetaminophen (Tylenol -) 325 mg PO Q6H PRN PRN Reason: PAIN LEVEL 7 - 10 Last Admin: 03/19/19 00:00 Dose: 325 mg Acetaminophen (Tylenol -) 650 mg PO Q6H PRN PRN Reason: PAIN 5 - 10 Al Hydroxide/Mg Hydroxide (Mylanta Oral Suspension -) 30 ml PO Q6H PRN PRN Reason: HEARTBURN Amitriptyline HCl (Elavil -) 25 mg PO [facility] Last Admin: 03/19/19 21:11 Dose: 25 mg Buprenorphine/Naloxone (Suboxone 2 Mg/0.5mg Sl Film -) 1 each SL TID [facility] Last Admin: 03/20/19 13:55 Dose: 1 each Cholecalciferol (Vitamin D3 -) 1,000 unit PO DAILY [facility] Last Admin: 03/20/19 10:48 Dose: 1,000 unit Cyclobenzaprine HCl (Flexeril -) 10 mg PO Q8H PRN PRN Reason: SPASMS Last Admin: 03/20/19 01:11 Dose: 10 mg Docusate Sodium (Colace -) 100 mg PO TID [facility] Last Admin: 03/20/19 13:55 Dose: 100 mg Sodium Chloride (1/2 Normal Saline) 1,000 mls @ 75 mls/hr IV ASDIR [facility] Last Admin: 03/20/19 14:00 Dose: Not Given Lorazepam (Ativan -) 0.5 mg PO Q8H PRN PRN Reason: ANXIETY Last Admin: 03/19/19 13:42 Dose: 0.5 mg Ondansetron HCl (Zofran Odt -) 4 mg SL Q6H PRN PRN Reason: NAUSEA Oxycodone HCl (Roxicodone -) 5 mg PO Q6H PRN PRN Reason: PAIN LEVEL 7 - 10 Pantoprazole Sodium (Protonix -) 40 mg PO DAILY [facility] Last Admin: 03/20/19 10:48 Dose: 40 mg Polyethylene Glycol (Miralax (For Daily Use) -) 17 gm PO Q12H PRN PRN Reason: CONSTIPATION Last Admin: 03/20/19 10:48 Dose: 17 grams Rosuvastatin Calcium (Crestor -) 20 mg PO [facility] Last Admin: 03/19/19 21:11 Dose: 20 mg Senna (Senna -) 2 tab PO HS [facility] Last Admin: 03/19/19 21:12 Dose: Not Given - Objective Vital Signs: Vital Signs Temperature 97.6 F 03/20/19 14:00 Pulse Rate 69 03/20/19 14:00 Respiratory Rate 20 03/20/19 14:00 Blood Pressure 113/65 03/20/19 14:00 O2 Sat by Pulse Oximetry (%) 97 03/20/19 09:00 Constitutional: Yes: Well Nourished, No Distress Eyes: Yes: WNL HENT: Yes: WNL Neck: Yes: WNL Cardiovascular: Yes: WNL Respiratory: Yes: WNL Gastrointestinal: Yes: WNL Genitourinary: Yes: WNL Extremities: Yes: WNL Edema: No Peripheral Pulses WNL: Yes Integumentary: Yes: WNL Wound/Incision: Yes: Clean/Dry, Well Approximated Neurological: Yes: WNL ...Motor Strength: WNL Psychiatric: Yes: WNL Labs: CBC, BMP 03/19/19 09:04 03/19/19 09:04 Assessment/Plan 59-year-old female with a past medical history significant for s/p L. hip surgery (6 years ago), and chronic pain was sent to the emergency department by Dr. Quevedo for evaluation for chronic pain. The patient reports following up with Dr. Quevedo earlier, who referred the patient to the ER for admission and further management for the pain. cont pain management. ortho eval appreciated. ortho intervention on hold for now. -major anxiety and depression: on ativan, amitriptyline. -HLD: crestor. -oral diet -OOB as tolerated -DC to [facility] planned for tomorrow assessment and plan discussed at length with pt labs and meds reviewed phone calls answered throughout the day 25 min
[2019-03-20] MEDS: ROSUVASTATIN CA 20 MG TABLET (FP) PO SCH (21:39)
[2019-03-20] MEDS: AMITRIPTYLINE HCL 25 MG TABLET (FP) PO SCH (21:39)
[2019-03-20] MEDS: SENNOSIDES 8.6MG TABLET (FP) PO SCH (21:39)
[2019-03-21] MEDS: DOCUSATE SODIUM 100 MG CAPSULE (FP) PO SCH ×2 (05:52→14:24)
[2019-03-21] MEDS: BUPRENORPHINE/NALOXONE 2 MG/0.5 MG FILM PACKET SL SCH ×2 (05:53→14:24)
[2019-03-21] MEDS: CHOLECALCIFEROL (VIT D3) 1,000 UNIT (25 MCG) TABLET PO SCH (09:07)
[2019-03-21] MEDS: PANTOPRAZOLE 40 MG TABLET (FP) PO SCH (09:07)
--- NOTE | 2019-03-21 16:22 | DS ---
Physical Examination Vital Signs: Vital Signs Temperature 98.2 F 03/21/19 15:00 Pulse Rate 66 03/21/19 15:00 Respiratory Rate 20 03/21/19 15:00 Blood Pressure 122/72 03/21/19 15:00 O2 Sat by Pulse Oximetry (%) 97 03/20/19 09:00 Constitutional: Yes: Well Nourished, Anxious Eyes: Yes: WNL HENT: Yes: WNL Neck: Yes: WNL Cardiovascular: Yes: WNL Respiratory: Yes: WNL Gastrointestinal: Yes: Normal Bowel Sounds, Soft ...Rectal Exam: Yes: Deferred Renal/: Yes: WNL Musculoskeletal: Yes: Joint Stiffness Extremities: Yes: WNL Edema: No Peripheral Pulses WNL: Yes Integumentary: Yes: WNL Neurological: Yes: WNL ...Motor Strength: WNL Psychiatric: Yes: Agitated Labs: CBC, BMP 03/19/19 09:04 03/19/19 09:04 Discharge Summary Reason For Visit: TOTAL BODY PAIN Current Active Problems Total body pain (Chronic) Hospital Course: sessment/Plan 59-year-old female with a past medical history significant for s/p L. hip surgery (6 years ago), and chronic pain was sent to the emergency department by Dr. Quevedo for evaluation for chronic pain. The patient reports following up with Dr. Quevedo earlier, who referred the patient to the ER for admission and further management for the pain. cont pain management. ortho eval appreciated. ortho intervention on hold for now. -major anxiety and depression: on ativan, amitriptyline. -HLD: crestor. -oral diet -OOB as tolerated Condition: Fair - Instructions Disposition: RETIREMENT FACILITY - Home Medications Comprehensive Discharge Medication List: Ambulatory Orders LORazepam [Ativan] 0.5 mg PO TID 07/09/17 Hydrocodone/Acetaminophen [[place] 5-325 Tablet] 2 each PO TID PRN MDD 6 08/22/18 Amitriptyline HCl [Elavil -] 25 mg PO HS #0 tablet 09/15/18 Cholecalciferol (Vitamin D3) [Vitamin D3 -] 1,000 unit PO DAILY tab 09/15/18 Docusate Sodium [Colace] 100 mg PO DAILY #1 capsule 09/15/18 Pantoprazole Sodium [Protonix -] 40 mg PO DAILY tablet.ec 09/15/18 Polyethylene Glycol 3350 [Miralax 119 gm Btl -] 17 gm PO DAILY PRN #1 bottle Rosuvastatin [Crestor -] 5 mg PO Q2D@2200 tablet 09/15/18 Sennosides [Senna] 2 tab PO DAILY #1 tablet 09/15/18 Calcium Carbonate [Calcium] 600 mg PO DAILY 03/19/19
[2019-03-21 17:00] VITALS: BP 120/80; PULSE 75; TEMP 97.7
--- NOTE | 2019-03-22 08:34 | PN ---
Progress Note (short form) - Note Progress Note: Thanks for the consult Previous Left THR [facility] Problem C/O left root pain Chronic inability to walk due to progressive deformity Spine Pelvis and Lower extremity Reactive anxiodepression to this difficulty ? background psychiatric disorder. After extensive clinical exam the crum problem is Leg length discrepancy Approx 1 1/2 inches resulting in pelvic obliquity and secondary kyphoscoliosis and intractable secondary myofascial pain. PLAN Review of XRays Precursory assessment Replace the R hip and and attempt equalizing the LLD.
== END 2019-03-21 17:24 | DRG 566 ==
LOC: JER 15:29 → JERBED 19:09 → J8W 03-19 01:07
PROVIDERS: ADMIT Internal Medicine; ATTEND Internal Medicine
DX: M21.70 Unequal limb length (acquired), unspecified site (principal); F41.8 Other specified anxiety disorders; M41.50 Other secondary scoliosis, site unspecified; M53.9 Dorsopathy, unspecified; E78.5 Hyperlipidemia, unspecified
CPT/HCPCS: 36415; 71046-TC-FY; 72082-TC-FY; 73523-TC-FY; 80048; 80053; 85025; 93005; 93010; 97116-GP; 97162-GP; 99284-25